=== PATIENT | male | born 1945 | race Caucasian/White ===

== ENCOUNTER → 2021-10-13 14:08 | Outpatient (BNVA) | payer OTHER, SELFPAY | PROVIDERS: Family Provider Nurse Practitioner; PCP Nurse Practitioner; Visit Provider Internal Medicine | DX: I25.10 Atherosclerotic heart disease of native coronary artery without angina pectoris (principal); R94.31 Abnormal electrocardiogram [ECG] [EKG]; I45.10 Unspecified right bundle-branch block; I10 Essential (primary) hypertension; R06.00 Dyspnea, unspecified; R55 Syncope and collapse; R00.0 Tachycardia, unspecified; R00.1 Bradycardia, unspecified; I48.91 Unspecified atrial fibrillation | CPT/HCPCS: 93005; 93270; 99204 ==

== ENCOUNTER → 2021-11-16 11:58 | Outpatient (BNVA) | payer OTHER, SELFPAY | PROVIDERS: Family Provider Nurse Practitioner; PCP Nurse Practitioner; Visit Provider Internal Medicine | DX: I25.10 Atherosclerotic heart disease of native coronary artery without angina pectoris (principal); I10 Essential (primary) hypertension; R06.00 Dyspnea, unspecified; R55 Syncope and collapse | CPT/HCPCS: 99214 ==

== ENCOUNTER 2021-11-24 07:33 | Outpatient (CLI) | payer OTHER, SELFPAY ==
[2021-11-23 14:46] LABS: Basophils % 0.2 %; Eosinophils # 0.1 10^3/uL (0.0-0.8); Eosinophils % 0.8 %; Hematocrit 53.3 % (42.0-52.0); Hemoglobin 17.8 g/dL (11.7-16.6); Lymphocytes # 4.2 10^3/uL (0.8-4.8); Lymphocytes % 49.2 %; Mean Corpuscular HGB Conc 33.4 g/dL (30.0-36.0); Mean Corpuscular Hemoglobin 34.8 pg (28.0-34.0); Mean Corpuscular Volume 104.1 fl (80-94); Mean Platelet Volume 9.9 fL (7.4-10.4); Monocytes # 0.6 10^3/uL (0.2-0.9); Monocytes % 6.4 %; Neutrophils # 3.67 10^3/uL (1.8-7.7); Nucleated Red Blood Cells % 0 %; Platelet Count 218 10^3/cmm (130-400); Red Blood Count 5.12 10^6/uL (4.1-5.3); Red Cell Distribution Width 13.7 % (12.1-15.1); White Blood Count 8.5 10^3/uL (4.0-10.0)
[2021-11-23 14:59] LABS: INR 0.83 (0.83-1.21); Prothrombin Time (Patient) 11.7 Seconds (12.0-15.1)
[2021-11-23 18:37] LABS: Blood Urea Nitrogen 9 mg/dL (8-23); Calcium 9.1 mg/dL (8.5-10.5); Carbon Dioxide 28 mmol/L (22-29); Chloride 102 mmol/L (98-107); Glucose 96 mg/dL (65-115); Osmolality Calculated 287 mOsm/kg (285-295); Sodium 139 mmol/L (136-145)
[2021-11-23 18:41] LABS: Anion Gap 13.4 (5-19); Potassium 4.4 mmol/L (3.5-5.1)
[2021-11-24] VITALS (28 sets, daily range): BP systolic 117–152; BP diastolic 67–88; PULSE 39–51; RESP 8–26; TEMP 36.4–36.6; O2SAT 91–98; BMI 19.6
--- NOTE | 2021-11-24 07:30 | XACV_ITS ---
Exam Room: 2 Ht: 183 cm Wt: 66 kg BSA: 1.82 m2 Gender: Male : 1945 Any Known Allergies: Sulfa Exam Priority: Routine Procedure(s): Procedure Description: Diagnostic procedure Procedure Description: Left Heart Catheterization Procedure Description: Left ventriculography Procedure Description: Coronary Angiography Diagnostic Cath Status: Elective Diagnostic Findings * Left Main has no significant disease. * Proximal Left Anterior Descending: critical 95% stenosis, JOSÉ: 3 flow. LAD gives rise to a large sized diagonal artery which is free of significant disease. Distal LAD fills via collaterals.. * Indication:76-year-old man with past medical history of coronary artery disease status post 3 stents in 2004 and hypertension was referred for a syncopal episode without any warning signs. Also has been having worsening dyspnea on exertion and chest pressure. Patient had event monitor that showed a significant sinus pause of 4.2-second in duration however patient did not want to have pacemaker at that time.. * Circumflex has no disease. * Mid Left Anterior Descending: total occlusion, JOSÉ: 0 flow. * Proximal Right Coronary Artery: obstructive 70% stenosis, JOSÉ: 3 flow. * Distal Right Coronary Artery: obstructive 60% stenosis, JOSÉ: 3 flow. * Right Posterior AV: obstructive 70% stenosis, JOSÉ: 3 flow. * Coronary angiography shows right dominance. Conclusions 1. Severe multivessel CAD including ostial LAD, totally occluded mid LAD, 2. severe RCA stenosis.. 3. Normal left ventricular systolic function. Ejection fraction of 55%. Recommendations * We will refer patient to CT surgery for CABG evaluation. If he is not good surgical candidate, we can consider PCI of RCA and ostial LAD. * Continue aspirin. No Plavix. * Outpatient cardiology follow-up in 2 weeks. Interventional RX Recommendation: CABG Diagnostic RX Recommendation: CABG Anticoagulation: Heparin Ventriculography Ejection Fraction: 55.0 % Pressures Phase:Rest AO : 93 / 59 ( 75 ) @ 11:19:00 AM 119 / 60 ( 81 ) @ 11:27:00 AM 120 / 60 ( 81 ) @ 11:27:00 AM LV : 132 / -1 / 18 @ 11:26:00 AM 122 / 4 / 25 @ 11:27:00 AM 121 / 3 / 23 @ 11:27:00 AM Valves Phase:DefaultPhase AV : 1.0 @ 10:36:25 AM AV Mean Gradient: 0.0 @ 10:36:25 AM 0.0 @ 10:36:25 AM Clinical Evaluation EBL: 5mL-10mL Procedural Details Procedure Consent Obtained. Pre-Procedure Time Out. Identified patient by full name and date of as verbalized by the patient/guarantor. Does the consent match the physician's order: Yes. Accurate & Complete Informed Consent: Yes. Inpatient/Outpatient History & Physical on Chart: Yes. If H&P is completed, is and addenduem needed: No; If yes, is the addendum complete: N/A. Visualize and Verify Site with Patient/Guarantor: N/A. Relevant Radiology Images available: Yes. Pre-op teaching completed and patient verbalized understanding. The risks, benefits, and alternatives of sedation and/or procedure were discussed by physician. The patient agrees to continue. Procedure started. [facility] Clinical Fraility Score: 3: Managing Well. 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 Chest Pain Symptom Assessment: Atypical Angina. Correct patient, site and procedure confirmed by cath team. Current diagnosis: Chest Pain. PERRLA. Strong, equal hand head batcher bilaterally. Lungs clear x 5 lobes. IV Site on Arrival: 20 gauge in the left anticubital. IV Fluids: 0.9% NaCl at KVO. 0 mL infused prior to manager cath lab. Pre Procedural Pulses: bilateral dorsalis pedis was 2+. Pre Procedural Pulses: bilateral posterior tibial was 1+. Pre Procedural Pulses: bilateral radial was 3+. Oxygen started at 2liters/min via nasal canula. right groin was prepped with chloroprep then draped in the usual sterile fashion. right radial was prepped with chloroprep then draped in the usual sterile fashion. Physician notified. Baseline sample Acquired. HR: 44 BPM. Physician arrived. Physician scrubbed in. Immediate Pre-Procedure Time Out. Correct Patient: Yes; Correct Procedure: Yes; Correct Site: Yes; Correct Patient Position: Yes; Correct Supplies: Yes; Dried Flammable Prep: Yes; Blood Products Available: N/A;. Lidocaine 1% infiltrated to the right radial. Arterial access obtained. A 5 setswana TIG catheter in over wire. Multiple views taken of left coronary artery. Catheter redirected to the RCA. Multiple views taken of right coronary artery. Catheter removed over the standard wire. A 5 setswana Angled Pig catheter in over wire. EDP Sample taken: LV 132/-2,18; HR: 41 BPM; SpO2: 96%. LV gram performed in [place] @ 10 mL/second for a total of 30 mL. EDP Sample taken: LV 122/4,25; HR: 46 BPM; SpO2: 96%. Pullback taken: LV 121/3,23; AO 119/60(81); Mean: 0mmHg, Peak to Peak: 1mmHg, SEP: 14sec/min; HR: 47 BPM; SpO2: 96%. A TR Band was successful obtaining hemostatsis at the Right Radial artery insertion site. Post Procedure: Pulses reassessed and unchanged. PERRLA. Strong, equal hand head batcher bilaterally. No VTE prophylaxis required. Medication's Wasted: Lidocaine 1% = 2 mL. Medication's Wasted: Heparin = 1000 units. Medication's Wasted: Nitro = 49.8 mg. Total IV fluids: 24 mL. Post-op diagnosis: Multi-vessel CAD. Complications: None. Estimated blood loss: 5mL-10mL. Responsiveness - Normal response to verbal stimuli; alert and oriented, PERRLA. Airway - Unaffected, no intervention required; spontaneous ventilation. Circulation: W/N/L, pulses unchanged. Nausea/Vomiting: No. Vital chart was stopped. Procedure completed. Patient transferred by wheelchair to [facility]. Catheter removed over the standard wire. Access Site Site: Right Radial artery Sheath Size: 6 Fr Hemostasis Method: TR Band Hemostasis Success: Successful Procedure Medications Start: 9:58 AM Stop: 9:58 AM Medication: Fentanyl Amount: 50 mcg Route: I.V. Start: 10:08 AM Stop: 10:08 AM Medication: Versed Amount: 1 mg Route: I.V. Start: 10:15 AM Stop: 10:15 AM Medication: Nitrogylcerin Amount: 200 mcg Route: I.A. Start: 10:17 AM Stop: 10:17 AM Medication: Heparin Amount: 5000 units Route: I.V. I, the attending physician, have reviewed and verified all procedure medications. Yes, all medications given per verbal order History/Risk Factors Hypertension: Yes Dyslipidemia: No Peripheral Arterial Disease (PAD): No Myocardial Infarction (DC): Yes Obesity: No Renal Disease: No Tobacco Use: Current/Recent(w/in 1 year) Prior Interventions PCI: Yes CABG: No Valve Surgery: No Report Signatures Finalized by Adam Francis MD on 12/01/2021 11:51 AM
[2021-11-24] MEDS: diphenhydrAMINE 50 mg Capsule PO (08:50)
--- NOTE | 2021-11-24 10:08 | W.PM.OPSUD ---
Surgery/Procedure H&P Update DATE OF PROCEDURE: November 24, 2021 DATE H&P PERFORMED: 11/16/21 H&P UPDATE INFORMATION: I have reviewed H&P completed within last 30 days, I have examined patient prior to procedure and No changes to prior documentation PREOP DIAGNOSIS: Dyspnea on exertion/syncope PRIMARY INDICATION FOR PROCEDURE: Dyspnea on exertion/syncope PLANNED PROCEDURE: Operation Date: 11/24/21 08:30 Proposed Procedures p left Cardiac Catheterization 30360,R55,R06.00,I25.10,I10(Left) - Adam Francis M.D Possible percutaneous coronary intervention PATIENT REASSESSED PRIOR TO SEDATION, WITH NO CHANGE NOTED: Yes PHYSICAL EXAM: alert, oriented x 3, clear to auscultation bilaterally and regular rate & rhythm AIRWAY EVAL/ANESTHESIA PLAN: ASA III, Local Anesthesia, Risks, benefits & alternatives of sedation and/or procedure discussed and Patient agrees to continue as planned
--- NOTE | 2021-11-24 11:23 | PC.NURSE ---
Around 1040: Patient returned from collaborative physician. TR band in place, no hematoma or drainage noted. Vitals WDL, pt denies pain. Patient educated over right wrist restrictions, verbalized understanding of all teaching. Will continue to monitor per protocol.
--- NOTE | 2021-11-24 16:51 | PC.NURSE ---
1600 TR band removed per protocol no hematoma or bruising noted patient tolerated well
--- NOTE | 2021-11-24 18:23 | PC.NURSE ---
Discharge Note Patient discharged to Home via private vehicle accompanied by spouse. Discharge instructions reviewed with patient and/or corporate representative. Mobile pharmacy medications and/or prescriptions provided. Belongings/home medications returned.
== END 2021-11-24 18:23 | disposition home or self-care (01) ==
LOC: CCL 07:37 → MEDSURG 16:40
PROVIDERS: PCP Nurse Practitioner; Visit Provider Internal Medicine
DX: R06.00 Dyspnea, unspecified (principal); R55 Syncope and collapse; I10 Essential (primary) hypertension; I25.10 Atherosclerotic heart disease of native coronary artery without angina pectoris; F17.200 Nicotine dependence, unspecified, uncomplicated
CPT/HCPCS: 36415; 80048; 85025; 85610; 93452; 93458; 96360; 99152; 99153; C1769; C1887; C1894; G0378; J1644; J2250; J3010; J3490; J7030; Q0163; Q9967

== ENCOUNTER → 2021-11-29 13:46 | Outpatient (BNVA) | payer OTHER, SELFPAY | PROVIDERS: PCP Nurse Practitioner; Visit Provider Thoracic Surgery (Cardiothoracic Vascular Surgery) | DX: I25.10 Atherosclerotic heart disease of native coronary artery without angina pectoris (principal); I10 Essential (primary) hypertension; F17.210 Nicotine dependence, cigarettes, uncomplicated | CPT/HCPCS: 99203 ==

== ENCOUNTER 2021-12-05 09:02 | Outpatient (CLI) | payer OTHER, SELFPAY ==
--- NOTE | 2021-12-05 09:30 | USCV_ITS ---
Bernardo Gutierrez Age: 76 Gender: M : 1945 Exam Date: 12/05/2021 09:41 Ordering Phys: Jasiel Escalante MD (Andy) ([email or web address] [email or web address] Technologist: Matt Mohan Exam Location: [facility] – [place] Indication: pre cabg RIGHT LEFT LOWER EXTREMITY Diameter Diameter (cm) (cm) 0.30 High Thigh 0.33 0.40 Mid Thigh 0.35 0.27 Above Knee 0.28 0.27 Below Knee 0.23 0.27 Mid Calf 0.22 0.16 Ankle 0.24 RIGHT LEFT UPPER EXTREMITY The Upper Extremity section is not evaluated at this time Findings both saph veins would make great canadates of harvest for cabg Patent and easily compressible greater saphenous veins bilaterally Normal venous dimensions bilaterally-details as mentioned above Conclusions Patent normal caliber greater saphenous veins bilaterally with no evidence of thrombosis Dr Jocelin Maciel MD FACC (Electronically Signed) Final Date: 05 December 2021 19:47 S
== END 2021-12-05 09:03 | disposition home or self-care (01) ==
PROVIDERS: PCP Nurse Practitioner; Visit Provider Thoracic Surgery (Cardiothoracic Vascular Surgery)
DX: I25.10 Atherosclerotic heart disease of native coronary artery without angina pectoris (principal); Z01.810 Encounter for preprocedural cardiovascular examination
CPT/HCPCS: 93970

== ENCOUNTER 2021-12-06 15:23 | Inpatient (IN) | payer OTHER, SELFPAY ==
--- NOTE | 2021-12-05 10:46 | XRR_ITS ---
PROCEDURE INFORMATION: Exam: XR Chest Exam date and time: 12/05/2021 10:57 AM Age: 76 years old Clinical indication: Pre-operative exam; Cardiovascular screening and respiratory screening exam; Additional info: Preop for cabg TECHNIQUE: Imaging protocol: Radiologic exam of the chest. Views: 1 view. COMPARISON: CR Chest 1 [place] [id number] 03/23/2018 12:00 PM FINDINGS: Lungs: There are normal lung volumes without interstitial or airspace opacities. Pleural spaces: There are no pleural effusions or pneumothorax. Heart/Mediastinum: The heart size is normal. There is a mildly tortuous thoracic aorta. The trachea is in the midline. Bones/joints: No acute abnormalities. There is osteopenia. Severe left and mild right shoulder degenerative changes are seen. XR/XR chest 1V portable [id number] IMPRESSION: No chest radiographic evidence of acute cardiopulmonary disease.
[2021-12-05 11:48] LABS: Basophils % 0.4 %; Eosinophils # 0.1 10^3/uL (0.0-0.8); Eosinophils % 0.7 %; Hematocrit 55.4 % (42.0-52.0); Hemoglobin 18.6 g/dL (11.7-16.6); Lymphocytes # 3.2 10^3/uL (0.8-4.8); Lymphocytes % 28.6 %; Mean Corpuscular HGB Conc 33.6 g/dL (30.0-36.0); Mean Corpuscular Hemoglobin 35.1 pg (28.0-34.0); Mean Corpuscular Volume 104.5 fl (80-94); Mean Platelet Volume 10.1 fL (7.4-10.4); Monocytes # 0.9 10^3/uL (0.2-0.9); Monocytes % 8.1 %; Neutrophils # 7.01 10^3/uL (1.8-7.7); Neutrophils % 61.9 %; Nucleated Red Blood Cells % 0 %; Platelet Count 255 10^3/cmm (130-400); Red Cell Distribution Width 13.4 % (12.1-15.1); White Blood Count 11.3 10^3/uL (4.0-10.0)
[2021-12-05 12:06] LABS: Add Urine Microscopic? NO; Charge for UA Resulting for Rev
[2021-12-05 12:08] LABS: INR 0.92 (0.8-1.2)
[2021-12-05 12:09] LABS: Partial Thromboplastin Time 29.6 SECONDS (23.9-36.7)
[2021-12-05 12:12] VITALS: BMI 19.6
[2021-12-05 12:26] LABS: Urine Appearance Clear (CLEAR); Urine Color Dark Yellow (Yellow); pH Urine 5 (5-7)
[2021-12-05 12:26] LABS: Alanine Aminotransferase 18 U/L (0-41); Albumin Level 4.7 g/dL (3.5-5.2); Alkaline Phosphatase 136 U/L (40-130); Anion Gap 14.5 (5-19); Aspartate Amino Transferase 18 U/L (0-40); Blood Urea Nitrogen 9 mg/dL (8-23); Calcium 9.9 mg/dL (8.5-10.5); Carbon Dioxide 29 mmol/L (22-29); Chloride 99 mmol/L (98-107); Globulin 3.1 g/dL (1.3-4.6); Glucose 106 mg/dL (65-115); Osmolality Calculated 285 mOsm/kg (285-295); Potassium 4.5 mmol/L (3.5-5.1); Sodium 138 mmol/L (136-145); Thyroid Stimulating Hormone 1.57 uIU/mL (0.27-4.20); Total Bilirubin 0.4 mg/dL (0.15-1.2); Total Protein 7.8 g/dL (6.6-8.7)
[2021-12-05 12:27] LABS: Bilirubin Urine Neg (Negative); Blood Urine Neg (Negative); Glucose Urine UA Norm (Normal); Ketones Urine Negative (Negative); Leukocyte Esterase Urine Negative (Negative); Nitrate Urine Negative (Negative); Protein Urine Neg (Negative); Urobilinogen Urine Norm (Negative)
[2021-12-05 13:19] LABS: Free T4 Free Thyroxine 0.81 ng/dL (0.82-1.77)
[2021-12-06] VITALS (43 sets, daily range): BP systolic 94–155; BP diastolic 45–86; PULSE 59–99; RESP 12–32; TEMP 36.7–37.5; O2SAT 96–100
[2021-12-06 06:18] LABS: Glucose Point of Care 100 mg/dL (70-110)
--- NOTE | 2021-12-06 06:33 | W.PM.OPSUD ---
Surgery/Procedure H&P Update DATE OF PROCEDURE: December 06, 2021 DATE H&P PERFORMED: 11/29/21 H&P UPDATE INFORMATION: I have reviewed H&P completed within last 30 days, I have examined patient prior to procedure and No changes to prior documentation PREOP DIAGNOSIS: Severe CAD: occluded LAD; RCA disease PLANNED PROCEDURE: Operation Date: 12/06/21 08:15 Proposed Procedures p CABG 58740,CAD I25.00(Not Applicable) - Jasiel Escalante MD
[2021-12-06] MEDS: sodium chloride 0.9% 1,000 ML 30 ML IV (06:59)
--- NOTE | 2021-12-06 07:25 | ANES.PREANE2 ---
Pre-Anesthetic Assessment Height/Weight: Height 1.83 m Weight 65.771 kg Temp Pulse Resp BP Pulse Ox O2 Del Method 99 F 59 L 18 155/79 98 12/06/21 06:13 12/06/21 06:13 12/06/21 06:13 12/06/21 06:13 12/06/21 06:13 12/06/21 06:14 Preop Diagnosis: Severe CAD: occluded LAD; RCA disease Operation Date: 12/06/21 08:15 Proposed Procedures p CABG 57446,CAD I25.00(Not Applicable) - Jasiel Escalante MD Familial anesthetic complications: None Was Beta Nadege taken within 24 hours: N/A Was Clonidine taken within 24 hours: N/A Last intake: Intake Last Liquid Date 12/05/21 Last Liquid Time 23:30 Last Solid Date 12/05/21 Last Solid Time 21:00 Social Tobacco and No alcohol Exam alert, oriented x 3 and regular rate & rhythm Airway Submandibular: within normal limits Cervical ROM: within normal limits Mallampati: Class II Dentition: false Pulmonary Chronic Obstructive Pulmonary Disease CV/HEM Coronary Artery Disease and Hypertension GI Gastroesophageal Reflux Disease Anesthetic Plan ASA status: 4 Anesthesia: General Other: A.line, CVL/PAC, MANOHAR Medications/Allergies Home Medications Medication Instructions Recorded Confirmed Last Taken Type cholecalciferol (vitamin D3) 25 25 mcg PO DAILY 10/13/21 12/05/21 12/04/21 History mcg (1,000 unit) capsule food supplemt, lactose-reduced ea PO 10/13/21 11/29/21 12/04/21 History (Ensure Active High Protein) omega 9-ntu-weg-fish oil 100 cap PO 10/13/21 11/29/21 12/02/21 History mg-160 mg-1,000 mg capsule (Fish Oil) omeprazole 40 mg capsule,delayed 40 mg PO DAILY 10/13/21 12/05/21 12/05/21 History release sildenafil 100 mg tablet 100 mg PO DAILY PRN Sexual Activity 10/13/21 12/05/21 Unknown History tamsulosin 0.4 mg capsule 0.4 mg PO DAILY 10/13/21 12/05/21 12/04/21 History amlodipine 10 mg tablet 10 mg PO DAILY #90 tabs 11/16/21 12/05/21 12/05/21 Rx aspirin 81 mg capsule 81 mg PO DAILY #60 caps 11/24/21 12/05/21 12/02/21 Rx citalopram 40 mg tablet 40 mg PO DAILY 11/29/21 12/05/21 12/04/21 History Allergies Allergy/AdvReac Type Severity Reaction Status Date / Time Sulfa (Sulfonamide Allergy rash Verified 11/29/21 14:34 Antibiotics) Current Medications Generic Name Dose Route Start Last Admin Trade Name Freq PRN Reason Stop Dose Admin Sodium Chloride 1,000 mls @ 30 mls/hr 12/06/21 06:00 12/06/21 06:59 Sodium Chloride 0.9% IV 12/07/21 05:59 30 mls/hr .Q24H MARY Administration PFSH Anesthesia Medical History CAD (coronary artery disease) Hypertension Family History Mother CAD (coronary artery disease) Father Hypertension Denies family history of Diabetes Cancer Stroke Social History Smoking and tobacco status: current every day smoker cigarettes Packs smoked per day: 1 Years cigarettes smoked: 4 Alcohol intake: current Alcohol intake frequency: 3 or more drinks per day Household members: spouse Housing: House Marital status: Number of children: 2 service: Yes Pets and animals: Yes Pets & animals: cat(s) and dog(s) Data Anesthesia : 12/05/21 11:10 12/05/21 11:10 Short CBC 12/05/21 Range/Units 11:10 WBC 11.3 H (4.0-10.0) 10^3/uL Hgb 18.6 H (11.7-16.6) g/dL Hct 55.4 H (42.0-52.0) % MCV 104.5 H (80-94) fl Plt Count 255 (130-400) 10^3/cmm Neut % (Auto) 61.9 % Neut # (Auto) 7.01 (1.8-7.7) 10^3/uL BMP 12/05/21 11:10 Sodium 138 Potassium 4.5 Chloride 99 Carbon Dioxide 29 BUN 9 Creatinine 0.7 Glucose 106 Calcium 9.9 Liver Function 12/05/21 Range/Units 11:10 Total Bilirubin 0.4 (0.15-1.2) mg/dL Direct Bilirubin 0.20 (0.00-0.30) mg/dL AST 18 (0-40) U/L ALT 18 (0-41) U/L Alkaline Phosphatase 136 H (40-130) U/L Albumin 4.7 (3.5-5.2) g/dL Urine 12/05/21 Range/Units 11:25 Urine Color Dark yellow (Yellow) Urine Appearance Clear (CLEAR) Urine pH 5 (5-7) Ur Specific [place] 1.020 (1.005-1.030) Urine Protein Neg (Negative) Urine Glucose (UA) Norm (Normal) Urine Ketones Negative (Negative) Urine Nitrate Negative (Negative) Urine Bilirubin Neg (Negative) Ur Leukocyte Esterase Negative (Negative) Blood Bank 12/05/21 11:10 Blood Type O Positive Rho(D) Type Positive Antibody Screen Negative Coags 12/05/21 11:10 PT 12.60 INR 0.92 APTT 29.6 Cardiac Studies: Cardiac Event Monitor 10/13/21
--- NOTE | 2021-12-06 08:34 | XRR_ITS ---
PROCEDURE INFORMATION: Exam: XR Chest Exam date and time: 12/06/2021 2:39 PM Age: 76 years old Clinical indication: Device placement; Other: Open heart surgery; Prior surgery; Surgery date: Post-operative (0-2 days); Additional info: Status post open heart surgery, in or 1. Willcallwhen ready TECHNIQUE: Imaging protocol: Radiologic exam of the chest. Views: 1 view. COMPARISON: CR XR chest 1V portable [id number] 12/05/2021 10:57 AM FINDINGS: Tubes, catheters and devices: Interval placement of right IJ Bynum-Hayes catheter with the tip near midline/main pulmonary artery region. Another right IJ catheter is probably present, partially visualized in the lower aspect, with the tip in the lower SVC. Interval placement of ET tube with tip about 5.9 cm above mandy. Placement of left chest tube with the tip in the upper thorax. Another radiopaque tube is faintly visualized in the midline lower thorax, probably mediastinal tube. Lungs: Cardiac silhouette size, and vascularity are somewhat accentuated, likely related to poor inspiration/expansion however clinical correlation for mild CHF should be obtained. Upper lungs are clear. Lung bases are suboptimally assessed. Pleural spaces: Stable minimal biapical pleural thickening. No pleural effusion. No pneumothorax. Heart/Mediastinum: As above. Bones/joints: Sternotomy wires and CABG clips. No acute osseous findings. Other findings: Single view was submitted. XR/XR chest 1V portable [id number] IMPRESSION: 1. Accentuated cardiac silhouette size and vascularity. See discussion above. 2. No obvious acute consolidation. Suboptimal lung base assessment. Followup including lateral view may be obtained if clinically indicated. 3. Tube/line positions as above.
[2021-12-06] MEDS: cefUROXime 1,500 MG in sodium chloride 0.9% (plus) 50 ML 100 MG IV ×2 (08:40→12:45)
[2021-12-06] MEDS: vancomycin 1,000 MG SDV 3000 MG XX (09:10)
--- NOTE | 2021-12-06 10:31 | SUR.OPER ---
VEIN SOLUTION: 1000ML LACTATED RINGERS MEDICATION ADDED: HEPARIN 1000U/ML 1750 UNITS SODIUM BICARBONATE 1MEQ/ML 0.7MEQ VERAPAMIL 2.5MG/ML 17.5MG NITROGLYCERIN 5MG/ML 10MG
--- NOTE | 2021-12-06 15:14 | PC.NURSE ---
pt here from OR with OR team. to the left wrist, cordis and central line to the right IJ. pt is currently intubed with a size 8 tube. verduzco to gravity. mediastinal and pleural chest tubes noted. wound vac to sternum.
--- NOTE | 2021-12-06 15:28 | ECG_ITS ---
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 Measurements Intervals Egan Rate: 84 P: 71 LA: 142 QRS: 72 QRSD: 118 T: 30 QT: 368 QTc: 437 Interpretive Statements SINUS RHYTHM RIGHT BUNDLE BRANCH BLOCK [120+ ms QRS DURATION, UPRIGHT V1, 40+ ms S IN I/aVL/V4/V5/V6] Compared to ECG 03/24/2018 05:13:57 Right bundle-branch block now present ST (T wave) deviation no longer present Electronically Signed On 12-06-2021 17:51:23 CDT by Adam Francis M.D. [id number]
--- NOTE | 2021-12-06 15:30 | PC.NURSE ---
cathy jiménez notified staff of a possible right upper pneumothorax. Dr. Whelan contacted and orders given to repeat portable chest xray
[2021-12-06] MEDS: fentaNYL 50 mcg/mL INJ 2mL IVP ×3 (15:50→23:31)
--- NOTE | 2021-12-06 16:02 | PM.OP ---
Operative Report Date of procedure: December 06, 2021 Pre-op diagnosis: Preop Diagnosis Severe CAD: occluded LAD; RCA disease Post-op diagnosis: same Procedure done: 1. Coronary artery bypass grafting x2 (1 artery and 1 vein) utilizing in situ left internal mammary artery to left anterior descending artery reverse saphenous vein graft from aorta to the distal right coronary artery. 2. Endoscopic vein harvesting of the right greater saphenous vein. Pathology: none sent Surgeon: Jasiel Escalante Anesthesia: General Estimated blood loss: 1000 cc of cell salvage blood was processed and retransfuse. No banked blood was transfused. Complications: None Condition: stable Disposition: ICU Brief History: Mr. Gutierrez is a pleasant 76-year-old gentleman referred to our service with severe two-vessel coronary artery disease including total occlusion of the LAD proximally with right to left collateralization from a large RCA with multiple lesions. It is felt that in relation to his occluded LAD, he would be best served with consideration for surgical revascularization. He underwent careful outpatient preoperative review. He was separately scheduled for elective admission for planned attempt at CABG. Details of risk the procedure were frankly discussed. Appropriate consents have been reviewed and signed. Mr. Gutierrez was eager to proceed. Procedure: Details and risks of the surgery were carefully and frankly explained to Mr. Gutierrez and his . Particular risks of this surgery carefully reviewed with them included the possibility of , stroke, heart attack, major bleeding, infection, pneumonia, pain, organ failure, failure to benefit, early closure of the bypass grafts, prolonged hospital stay and subsequent need for further procedures. Increased risks for complications secondary to total LAD occlusion were carefully reviewed. Patient and family understand these increased risks. All questions were answered and appropriate consents were reviewed and signed. Preoperative education for the patient and the family included both written and video materials. The patient and the family wished to proceed with plans for attempted surgical revascularization for severe coronary artery bypass. PROCEDURE: Preoperative evaluation was obtained from our Anesthesia colleagues and adequate IVs were confirmed. The patient was then taken to the Operating Room Suite where general anesthesia was induced. Appropriate invasive monitoring lines were placed, including large bore peripheral IVs, central line, [place]-Hayes catheter, Mcnamara catheter and associated monitoring leads. After careful positioning on the Operating Room table, the patient was subsequently sterilely prepped and draped. The patient then received low-dose Heparin prior to vein harvest. Greater saphenous vein was harvested by endoscopic technique from the right lower extremity. Branches were secured with ligature and clips and the vein was extracted from the tunnel without tension. It was then flushed with a Heparin and albumin solution and prepared for grafting. Vein harvest sites were irrigated, platelet poor plasma infused into the tunnel and port sites closed with 3-0 and 4-0 Vicryl Plus suture. Simultaneously with vein harvesting, a median sternotomy was created utilizing a #10 scalpel blade with hemostasis controlled with cautery. After reaching the sternal table, the sternum was divided with a reciprocating saw. Bleeding was controlled with cautery and judicious use of bone wax. Following this, the left chest wall was elevated with a Rultract retractor. The left internal mammary artery was dissected free with branches being secured with clips and cautery. The distal end was left intact. After harvesting of the mammary artery, a left pleural chest tube was then placed. The left chest wall was then lowered and moistened antibiotic-soaked laparotomy pads were placed in the wound, followed by an Ankeney retractor. The sternum was then and the pericardium opened and secured with stay sutures. After inspection, 2-0 pledgeted Ethibond sutures were placed at cannulation sites, at which time the patient was fully heparinized. Following this, the left internal mammary artery was taken down from its distal attachment, flushed with Papaverine solution, prepared for grafting and brisk flow confirmed. A soft bulldog was applied distally. Next, the heart was cannulated with a 22-Turkish aortic cannula, two-stage venous cannula and aortic root vent. The patient was subsequently placed on cardiopulmonary bypass and cooled systemically to 34 degrees. Aortic cross-clamp was then carefully placed and 4 degree Celsius cold blood cardioplegia was administered through the aortic root in antegrade fashion. Prompt diastolic arrest was obtained. Left ventricular decompression was confirmed. The heart was cooled systemically with iced saline with an insulation pad in place to protect the phrenic nerve. Throughout the cross-clamp period, at 20-30 minute intervals, antegrade blood cardioplegia was administered to maintain asystole. We then inspected the cardiac surface and coronary anatomy. Initially we did not find the most distal margins of the RCA along the diaphragmatic surface. This vessel was opened up at 2 mm in size. Vein was anastomosed distally with running 7-0 Prolene suture over a 2 mm shunt. This vein was then anastomosed to a 4 mm aortotomy with running 5-0 Prolene suture. With the rewarming phase of bypass continuing, the left internal mammary artery was brought through a left anterior pericardial window into the field. The LAD was opened up in its mid one-third and was approximately 2 mm in size. The SOOD was then anastomosed to the LAD with a running 7-0 Prolene suture. It should be noted that all distal coronary anastomoses were performed over the appropriate size coronary shunt which was removed prior to securing the distal suture line. Following this, aortic cross-clamp was released and de-airing maneuvers were performed through the aortic root vent, as well as being confirmed by transesophageal echocardiography. Dobutamine at 3 mcg per kilogram per minute was administered with good chronotropic and inotropic affect. The heart returned to spontaneous sinus rhythm and did not require cardioversion or pacing. After adequate recovery from the cross-clamp period and confirmation of cardiac stability, the patient was weaned from bypass without difficulty. Venous cannula was removed. Heparin was reversed with Protamine and confirmed by measurement of activated clotting time. The heart was then decannulated and cannulation sites were oversewn as required. Pacing wires were placed and brought through the skin and secured. Radiopaque markers were placed on the vein grafts at the level of aorta. Two mediastinal drains were placed and connected to Pleur-evac suction. The wound was carefully irrigated and hemostasis was confirmed. Ankeney retractor was removed and sponge and needle count was correct. The sternum was then reapproximated very carefully with interrupted #7 stainless steel wire with Surgicel strips used beneath the sternal table. Fascia was closed with #1 Vicryl suture with the next layers being closed with 2-0 and 3-0 suture. The skin was reapproximated carefully in a subcuticular manner. Sterile dressings were applied, followed by a vacuum-assisted dressing. The patient was carefully removed from the operating room table and transferred to the Intensive Care Unit. His was then counseled as to the details of the procedure.
[2021-12-06] MEDS: midazolam 1 mg/mL INJ 2 mL IVP (16:05)
--- NOTE | 2021-12-06 16:14 | PC.NURSE ---
discharged from PACU to same level of care to ICU
[2021-12-06 16:16] LABS: ABG PCO2 37.6 mmHg (35-45); ABG PH Result 7.32 (7.35-7.45); Alveolar-Arterial Oxygen Gradi 36.1 mmHg (5-10); Arterial Blood Gas Hematocrit 45.2 % (42-52); Base Excess ABG -6.3 mmol/L (-2.0-2.0); Blood Gas Operator Identificat CAK; Blood Gas Sample Site ARTLINE; Blood Gas Sample Type Arterial; Carboxyhemoglobin 1.7 %THgb (0.4-20.1); HCO3 ABG 19.2 mmol/L (22-26); HGB O2 Sat 97.6 % (95-100); Ionized Calcium Level - ABG 1.1 mmol/L (1.1-1.4); Oxygen Device VENT; Oxygen Saturation ABG > 100.0; Potassium Level - ABG 4.1 mmol/L (3.5-5.0); Total Hemoglobin 14.7 g/dL (14-18)
[2021-12-06 16:17] LABS: INR 1.12 (0.8-1.2)
[2021-12-06 16:19] LABS: Partial Thromboplastin Time 26.2 SECONDS (23.9-36.7)
--- NOTE | 2021-12-06 16:22 | ANE.PACU2 ---
Inpatient post-anesthesia follow up: Airway intact: Yes Vital signs: Temperature 99 F Pulse Rate 85 Respiratory Rate 14 Blood Pressure 110/61 Pulse Oximetry 99 Oxygen Delivery Me thod Mechanical Ventila tion Oxygen Flow Rate Fraction of Inspir ed Oxygen 50 Hydration adequate: Yes Nausea and vomiting: No Mental status: Altered (Sedated on Prop gtt) Additional Comments: Intubated sedated to ICU, stable on minimal pressors.
[2021-12-06 16:28] LABS: Basophils % 0.2 %; Eosinophils % 0.1 %; Hematocrit 46.3 % (42.0-52.0); Hemoglobin 15.2 g/dL (11.7-16.6); Lymphocytes # 1.7 10^3/uL (0.8-4.8); Lymphocytes % 9.7 %; Mean Corpuscular HGB Conc 32.8 g/dL (30.0-36.0); Mean Corpuscular Hemoglobin 34.9 pg (28.0-34.0); Mean Corpuscular Volume 106.4 fl (80-94); Mean Platelet Volume 9.8 fL (7.4-10.4); Monocytes # 1.7 10^3/uL (0.2-0.9); Monocytes % 9.8 %; Neutrophils # 13.82 10^3/uL (1.8-7.7); Neutrophils % 79.4 %; Nucleated Red Blood Cells % 0 %; Platelet Count 157 10^3/cmm (130-400); Red Blood Count 4.35 10^6/uL (4.1-5.3); Red Cell Distribution Width 13.3 % (12.1-15.1); White Blood Count 17.4 10^3/uL (4.0-10.0)
--- NOTE | 2021-12-06 16:47 | XRR_ITS ---
PROCEDURE INFORMATION: Exam: XR Chest Exam date and time: 12/06/2021 4:57 PM Age: 76 years old Clinical indication: Device placement; Ng tube; Additional info: Ng tube placement TECHNIQUE: Imaging protocol: Radiologic exam of the chest. Views: 1 view. COMPARISON: CR XR chest 1V portable [id number] 12/06/2021 2:39 PM FINDINGS: Tubes, catheters and devices: ET tube with tip about 3.7 cm above mandy. Right IJ [place]-Hayes catheter with stable tip position near the midline and another right IJ catheter with tip in the lower SVC. NG tube coiling in the proximal stomach with the tip projecting in the mid gastric body region. Midline mediastinal tube and left chest tubes remain in place. Lungs: No consolidation. Pleural spaces: Probable small left pleural effusion. The right CP angle are partially excluded. No obvious pneumothorax on the left. There is a linear interface along the superolateral right thorax which may represent small right pneumothorax versus skin fold artifacts. Follow-up exam with expiratory upright exam may be helpful.. Heart/Mediastinum: Interval improvement of cardiac silhouette enlargement and prominent vascularity. Bones/joints: No acute findings. XR/XR chest 1V portable [id number] IMPRESSION: 1. Interval improvement of enlargement cardiac silhouette/prominent vascularity. 2. No obvious consolidation however lung bases are suboptimally assessed. 3. Small left pleural effusion. No obvious left pneumothorax. Small pneumothorax versus skin fold artifact on the right. See discussion above. 4. Tube/line position as above.
[2021-12-06] MEDS: sodium chloride 0.9% 1,000 ML 75 ML IV (16:52)
[2021-12-06 16:55] LABS: Magnesium 2.1 mg/dL (1.7-2.3)
[2021-12-06 17:26] LABS: Blood Urea Nitrogen 7 mg/dL (8-23); Calcium 7.9 mg/dL (8.5-10.5); Carbon Dioxide 21 mmol/L (22-29); Chloride 111 mmol/L (98-107); Glucose 138 mg/dL (65-115); Osmolality Calculated 292 mOsm/kg (285-295); Sodium 141 mmol/L (136-145)
[2021-12-06 17:29] LABS: Anion Gap 14.4 (5-19); Potassium 5.4 mmol/L (3.5-5.1)
--- NOTE | 2021-12-06 17:40 | XRR_ITS ---
PROCEDURE INFORMATION: Exam: XR Chest Exam date and time: 12/06/2021 6:04 PM Age: 76 years old Clinical indication: Other: Check for pneumo; Additional info: Repeat to evaulate for small right pneumo or artifact TECHNIQUE: Imaging protocol: Radiologic exam of the chest. Views: 1 view. COMPARISON: CR (CHEST, ) 12/06/2021 4:57 PM FINDINGS: Tubes, catheters and devices: Tube/line positions are unchanged. No significant interval change otherwise. Lungs: No consolidation however retrocardiac region is difficult to assess. Pleural spaces: No pneumothorax is noted on either side. Heart/Mediastinum: No cardiomegaly. Bones/joints: No acute findings. Other findings: A repeat semi upright view was obtained at about 6:07 p.m. with comparison same day earlier. XR/XR chest 1V portable [id number] IMPRESSION: No pneumothorax on either side.
--- NOTE | 2021-12-06 17:55 | PC.NURSE ---
Lab discrepency Labs were drawn via arterial line by Blane Kelly RN at 1555. ABG drawn from the same arterial line at 1605. Lab results from the BMP were not resulted by 1725 so lab was contacted. The specimen was ran with noted high potassium level of 5.4 with a note of slight hemolysis. The potassium level on the ABG was noted to be 4.1. At 1745 lab was contacted to draw the next scheduled cbc and bmp (that was scheduled for 1830) at 1800 to reevaluate the potassium level.
[2021-12-06 18:06] LABS: Glucose Point of Care 151 mg/dL (70-110)
[2021-12-06 18:06] LABS: Glucose Point of Care 136 mg/dL (70-110)
[2021-12-06] MEDS: propofol 1,000 MG/100 ML INJ 19.73 MG IV ×2 (18:23→22:35)
[2021-12-06] MEDS: chlorhexidine gluconate 0.12% Btl 473 mL 15 ML MUCOUS MEM (18:26)
[2021-12-06] MEDS: aspirin 81 mg Chew Tablet PO (18:26)
[2021-12-06] MEDS: mupirocin oint 22 gm 1 APPLIC NASAL (18:26)
[2021-12-06 18:28] LABS: Basophils % 0.2 %; Hematocrit 45.8 % (42.0-52.0); Hemoglobin 15.3 g/dL (11.7-16.6); Lymphocytes # 1.4 10^3/uL (0.8-4.8); Lymphocytes % 7.9 %; Mean Corpuscular HGB Conc 33.4 g/dL (30.0-36.0); Mean Corpuscular Hemoglobin 35.4 pg (28.0-34.0); Monocytes # 1.4 10^3/uL (0.2-0.9); Neutrophils # 14.67 10^3/uL (1.8-7.7); Neutrophils % 83.1 %; Nucleated Red Blood Cells % 0 %; Platelet Count 144 10^3/cmm (130-400); Red Blood Count 4.32 10^6/uL (4.1-5.3); Red Cell Distribution Width 13.6 % (12.1-15.1); White Blood Count 17.7 10^3/uL (4.0-10.0)
[2021-12-06 18:32] LABS: ABG PCO2 33.9 mmHg (35-45); Alveolar-Arterial Oxygen Gradi 14.4 mmHg (5-10); Arterial Blood Gas Hematocrit 46.9 % (42-52); Base Excess ABG -2.9 mmol/L (-2.0-2.0); Blood Gas Operator Identificat CAK; Blood Gas Sample Site ARTLINE; Blood Gas Sample Type Arterial; Carboxyhemoglobin 1.6 %THgb (0.4-20.1); HCO3 ABG 21.1 mmol/L (22-26); Ionized Calcium Level - ABG 1.1 mmol/L (1.1-1.4); Oxygen Device VENT; Oxygen Saturation ABG 99.6; Potassium Level - ABG 4.1 mmol/L (3.5-5.0); Total Hemoglobin 15.3 g/dL (14-18)
--- NOTE | 2021-12-06 18:55 | PC.NURSE ---
Bedside report completed with Mignon Martinez Rn and Kiley Richardson RN.
[2021-12-06 18:59] LABS: Blood Urea Nitrogen 7 mg/dL (8-23); Calcium 8.1 mg/dL (8.5-10.5); Carbon Dioxide 20 mmol/L (22-29); Chloride 111 mmol/L (98-107); Glucose 140 mg/dL (65-115); Magnesium 2.2 mg/dL (1.7-2.3); Osmolality Calculated 292 mOsm/kg (285-295); Sodium 141 mmol/L (136-145)
[2021-12-06] MEDS: albumin 12.5 GM/250 ML VIAL IV (19:08)
[2021-12-06 19:21] LABS: Glucose Point of Care 123 mg/dL (70-110)
[2021-12-06 19:21] LABS: Glucose Point of Care 144 mg/dL (70-110)
--- NOTE | 2021-12-06 19:44 | PC.NURSE ---
Repeat chest x ray results reported to Dr. Escalante by Corin Evans RN.
[2021-12-06 20:15] LABS: Glucose Point of Care 92 mg/dL (70-110)
[2021-12-06 21:06] LABS: Glucose Point of Care 108 mg/dL (70-110)
--- NOTE | 2021-12-06 21:56 | PC.NURSE ---
Propofol was weaned to assess patient's readiness for extubation. Patient became restless and was instructed to put his arms and legs down. Attempts were made to orient patient to his situation, it was explained to him that he had heart surgery and has many tubes and wires that need to remain in place. Patient unable to follow these instructions. Patient did open his eyes to command and nodded his head yes when asked if he was in pain. Pain medicine given per order. Patient's blood pressure became elevated so propofol was increased to allow patient to rest until he is more appropriate for extubation.
[2021-12-06 22:40] LABS: Basophils % 0.1 %; Lymphocytes # 1.6 10^3/uL (0.8-4.8); Lymphocytes % 10.9 %; Mean Corpuscular HGB Conc 33.3 g/dL (30.0-36.0); Mean Corpuscular Hemoglobin 35.3 pg (28.0-34.0); Mean Corpuscular Volume 105.8 fl (80-94); Mean Platelet Volume 10.1 fL (7.4-10.4); Monocytes # 1.2 10^3/uL (0.2-0.9); Monocytes % 8.5 %; Neutrophils # 11.52 10^3/uL (1.8-7.7); Neutrophils % 79.9 %; Nucleated Red Blood Cells % 0 %; Platelet Count 145 10^3/cmm (130-400); Red Blood Count 3.97 10^6/uL (4.1-5.3); Red Cell Distribution Width 13.6 % (12.1-15.1); White Blood Count 14.4 10^3/uL (4.0-10.0)
[2021-12-06 22:51] LABS: Glucose Point of Care 95 mg/dL (70-110)
[2021-12-06 23:02] LABS: Blood Urea Nitrogen 7 mg/dL (8-23); Calcium 7.7 mg/dL (8.5-10.5); Carbon Dioxide 25 mmol/L (22-29); Chloride 107 mmol/L (98-107); Glucose 94 mg/dL (65-115); Osmolality Calculated 288 mOsm/kg (285-295); Sodium 140 mmol/L (136-145)
[2021-12-06 23:04] LABS: Glucose Point of Care 112 mg/dL (70-110)
[2021-12-06 23:18] LABS: Anion Gap 12.2 (5-19)
[2021-12-06 23:19] LABS: Potassium 4.2 mmol/L (3.5-5.1)
--- NOTE | 2021-12-06 23:36 | PC.NURSE ---
Patient's blood pressure becomes elevated with pain. Pain medication given per order.
[2021-12-06] MEDS: cefUROXime 1,500 MG in sodium chloride 0.9% (plus) 50 ML 200 MG IV (23:41)
[2021-12-07] VITALS (31 sets, daily range): BP systolic 108–136; BP diastolic 60–95; PULSE 70–112; RESP 12–32; TEMP 36.6–37.2; O2SAT 91–98
[2021-12-07 00:07] LABS: Glucose Point of Care 86 mg/dL (70-110)
[2021-12-07 01:02] LABS: Glucose Point of Care 98 mg/dL (70-110)
[2021-12-07] MEDS: midazolam 1 mg/mL INJ 2 mL IVP (01:52)
[2021-12-07] MEDS: oxyCODONE-APAP 5-325 mg Tablet PO ×3 (01:53→20:08)
[2021-12-07 02:10] LABS: Glucose Point of Care 89 mg/dL (70-110)
--- NOTE | 2021-12-07 02:14 | PC.NURSE ---
Patient spontaneously woke up, there were no adjustments to his medications at this time. He opened his eyes and began to thrash his arms and legs. He was redirected to relax his extremities but did not follow these instructions. Multiple attempts were made to calm patient without success. When asked if he was hurting, he nodded his head yes. Versed and Percocet were administered per order. Patient's vital signs remained stable. Patient was repositioned and oral care was preformed for comfort.
--- NOTE | 2021-12-07 02:23 | PC.NURSE ---
Patient's physical assessment, as well as, the assessment of his lines and tubes remain unchanged.
[2021-12-07] MEDS: fentaNYL 50 mcg/mL INJ 2mL IVP ×2 (02:29→22:04)
[2021-12-07 03:12] LABS: Glucose Point of Care 94 mg/dL (70-110)
[2021-12-07 03:31] LABS: ABG PH Result 7.38 (7.35-7.45); Alveolar-Arterial Oxygen Gradi 16.1 mmHg (5-10); Arterial Blood Gas Hematocrit 42.7 % (42-52); Base Excess ABG -0.3 mmol/L (-2.0-2.0); Blood Gas Operator Identificat JB; Blood Gas Sample Site Not specified; Blood Gas Sample Type Arterial; Carboxyhemoglobin 1.9 %THgb (0.4-20.1); HCO3 ABG 25.1 mmol/L (22-26); HGB O2 Sat 91.9 % (95-100); Ionized Calcium Level - ABG 1.1 mmol/L (1.1-1.4); Methemoglobin 0.9 % (0.4-1.5); Oxygen Device VENT; Oxygen Saturation ABG 94.5; PO2 ABG 72.5 mmHg (80.0-100.0); Potassium Level - ABG 3.7 mmol/L (3.5-5.0); Total Hemoglobin 13.9 g/dL (14-18)
[2021-12-07] MEDS: propofol 1,000 MG/100 ML INJ 19.73 MG IV ×2 (03:37→08:07)
[2021-12-07 03:38] LABS: Basophils % 0.2 %; Eosinophils % 0.1 %; Hematocrit 41.2 % (42.0-52.0); Hemoglobin 13.5 g/dL (11.7-16.6); Lymphocytes % 15.4 %; Mean Corpuscular HGB Conc 32.8 g/dL (30.0-36.0); Mean Corpuscular Volume 106.7 fl (80-94); Mean Platelet Volume 10.2 fL (7.4-10.4); Monocytes # 1.3 10^3/uL (0.2-0.9); Monocytes % 9.9 %; Neutrophils # 9.76 10^3/uL (1.8-7.7); Neutrophils % 73.9 %; Nucleated Red Blood Cells % 0 %; Platelet Count 149 10^3/cmm (130-400); Red Blood Count 3.86 10^6/uL (4.1-5.3); Red Cell Distribution Width 13.9 % (12.1-15.1); White Blood Count 13.2 10^3/uL (4.0-10.0)
[2021-12-07 03:52] LABS: INR 1.01 (0.8-1.2)
[2021-12-07 03:53] LABS: Partial Thromboplastin Time 29.3 SECONDS (23.9-36.7)
[2021-12-07 03:59] LABS: Blood Urea Nitrogen 7 mg/dL (8-23); Calcium 7.7 mg/dL (8.5-10.5); Carbon Dioxide 25 mmol/L (22-29); Chloride 109 mmol/L (98-107); Glucose 93 mg/dL (65-115); Glucose Fasting 93 mg/dL (74-106); Osmolality Calculated 290 mOsm/kg (285-295); Sodium 141 mmol/L (136-145)
[2021-12-07 04:02] LABS: Anion Gap 10.9 (5-19); Potassium 3.9 mmol/L (3.5-5.1)
[2021-12-07 04:02] LABS: Glucose Point of Care 82 mg/dL (70-110)
--- NOTE | 2021-12-07 04:21 | PC.NURSE ---
Spoke to Dr. Escalante. Reported 22 beat run of wide complex tachycardia, lab results, hemodynamics, and efforts to extubate patient. Orders for potassium replacement, to remove swan if patient has any further arrhythmias, and to use morphine for pain control if needed.
[2021-12-07] MEDS: potassium chloride premix 100 ML 25 MEQ IV ×2 (04:39→16:54)
[2021-12-07] MEDS: sodium chloride 0.9% 1,000 ML 75 ML IV ×3 (04:39→20:01)
--- NOTE | 2021-12-07 05:20 | PC.NURSE ---
Dr. Escalante at bedside. Reviewed I&O, hemodynamics, medications, and plan of care. Will use morphine and benzo if needed to aid in extubation process. Orders to MARK jones.
[2021-12-07 05:24] LABS: Glucose Point of Care 84 mg/dL (70-110)
--- NOTE | 2021-12-07 05:24 | PM.PN ---
Subjective Subjective: Postop day #1 status post CABG x2. Uneventful night with 1 episode of about a 20 beat run of V. tach around 3:30 AM. Laboratory data only significant for potassium of 3.9. 40 mill equivalents currently infusing. Otherwise, vital signs have been very stable. Low chest tube output. Total chest tube output approximate 350 cc since surgery. Chest x-ray is still pending this morning. Intake and output is approximately 3 and 50 cc positive. Urine output has remained very steady throughout the night. 2 ventilator weaning trials attempted overnight with some agitation. FiO2 currently at 35%. Vitals/I&O/Wt Last Vital Signs Temp 99 F 12/06/21 06:13 Pulse 74 12/07/21 05:00 Resp 12 12/07/21 05:00 BP 125/71 12/07/21 05:00 Pulse Ox 97 12/07/21 05:00 O2 Del Method 12/07/21 04:30 O2 Flow Rate 15 12/06/21 15:14 FiO2 35 12/07/21 04:30 12/06/21 12/06/21 12/07/21 14:59 22:59 06:59 Intake Total 140 / 140 3429.484 / 3569.484 1033.058 / 4602.542 Output Total 3308 / 3308 944 / 4252 Balance 140 / 140 121.484 / 261.484 89.058 / 350.542 Weight last 48 hrs Weight 145 lb Physical Exam Chest: OTHER: Chest wall is stable. Support lines are in position. Resp: COMMON NORMALS: normal respiratory effort, No use of accessory muscles and clear to auscultation bilaterally AUSCULTATION: clear to auscultation bilaterally Cardio: COMMON NORMALS: regular rate, regular rhythm, S1 normal heart sound present and No murmurs present (Cardio) RATE: regular rate RHYTHM: regular rhythm HEART SOUNDS: S1 normal heart sound present GI: COMMON NORMALS: Soft to palpation PALPATION: Yes Soft to palpation OTHER: Hypoactive bowel sounds Urinary Catheter Management: Mcnamara: Cath Placed During This Visit: yes Reason for Continuing Indwelling Catheter: Accurate Measurement of Urinary Output in Critically Ill Patients Urinary Catheter Date of Insertion: 12/06/21 Urinary Catheter Time of Insertion: 07:48 Data : 12/07/21 03:25 12/07/21 03:25 A&P Assessment and plan (1) Status post aorto-coronary artery bypass graft: POD #1 status post CABG x2 Plan: Aspirin 81 mg daily. Metoprolol 12.5 mg twice daily. Utilize morphine over fentanyl for pain control. Will consider low-dose anxiolytic if there is continued agitation with next attempt at ventilator weaning. Resume citalopram. CBC, BMP, magnesium, chest x-ray in a.m. Status: Acute Attestations Medical Necessity Statement*: POD #1 status post CABG x2 Coding Level of Care Code Acute Community Health Program Coordinator for Chg Fwd Diagnoses Status post aorto-coronary artery bypass graft Z95.1
--- NOTE | 2021-12-07 05:31 | ECG_ITS ---
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 Measurements Intervals [place] Rate: 72 P: 73 W[place]: 160 QRS: 73 QRSD: 120 T: 57 QT: 372 QTc: 408 Interpretive Statements SINUS RHYTHM POSSIBLE RIGHT VENTRICULAR CONDUCTION DELAY [RSR (QR) IN V1/V2] EARLY REPOLARIZATION [ST ELEVATION WITH NORMALLY INFLECTED T-WAVE] Compared to ECG 12/06/2021 16:07:53 Early repolarization now present Right bundle-branch block no longer present Electronically Signed On 12-07-2021 16:34:19 CDT by Mike Ngo M.D. [id number]
[2021-12-07] MEDS: morphine 4 mg/mL SDV 1 mL 2 MG IVP ×2 (06:00→08:32)
--- NOTE | 2021-12-07 06:00 | XRR_ITS ---
PROCEDURE INFORMATION: Exam: XR Chest Exam date and time: 12/07/2021 6:01 AM Age: 76 years old Clinical indication: Other: S/P cabd surg; Prior surgery; Surgery date: Post-operative (0-2 days); Surgery type: S/P cabg surg PT on vent; Additional info: Pod #1 status post cabg TECHNIQUE: Imaging protocol: Radiologic exam of the chest. Views: 1 view. COMPARISON: CR (CHEST, ) 12/06/2021 6:04 PM FINDINGS: Tubes, catheters and devices: An endotracheal tube is present with the tip 3.8 cm above the mandy. The tip of the Lott[place]-Hayes catheter projects on the main pulmonary artery. Nasogastric tube projects on the stomach. There are multiple chest tubes. Lungs: Unremarkable. No consolidation. Pleural spaces: Unremarkable. No pleural effusion. No pneumothorax. Heart/Mediastinum: Status post coronary bypass surgery. No cardiomegaly. Bones/joints: Prominent chronic degenerative changes are present in the left shoulder joint.. XR/XR chest 1V portable [id number] IMPRESSION: Satisfactory postoperative chest.
[2021-12-07 06:16] LABS: Glucose Point of Care 80 mg/dL (70-110)
[2021-12-07 07:04] LABS: Glucose Point of Care 77 mg/dL (70-110)
[2021-12-07 07:31] LABS: ABG PCO2 50.6 mmHg (35-45); ABG PH Result 7.34 (7.35-7.45); Arterial Blood Gas Hematocrit 48.8 % (42-52); Base Excess ABG 0.2 mmol/L (-2.0-2.0); Blood Gas Allen Test Pos; Blood Gas Sample Site Not specified; Blood Gas Sample Type Arterial; HGB O2 Sat 95.9 % (95-100); Ionized Calcium Level - ABG 1.4 mmol/L (1.1-1.4); Methemoglobin 0.5 % (0.4-1.5); Oxygen Saturation ABG > 100.0; Potassium Level - ABG 3.5 mmol/L (3.5-5.0); Total Hemoglobin 15.9 g/dL (14-18)
[2021-12-07 07:33] LABS: ABG PCO2 41.9 mmHg (35-45); ABG PCO2 48.5 mmHg (35-45); ABG PH Result 7.33 (7.35-7.45); ABG PH Result 7.37 (7.35-7.45); Arterial Blood Gas Hematocrit 39.2 % (42-52); Arterial Blood Gas Hematocrit 49.4 % (42-52); Base Excess ABG -1.1 mmol/L (-2.0-2.0); Base Excess ABG -1.2 mmol/L (-2.0-2.0); Blood Gas Allen Test Pos; Blood Gas Sample Type Arterial; Carboxyhemoglobin 2.8 %THgb (0.4-20.1); HCO3 ABG 24.1 mmol/L (22-26); HCO3 ABG 25.5 mmol/L (22-26); HGB O2 Sat 97.1 % (95-100); HGB O2 Sat 97.4 % (95-100); Ionized Calcium Level - ABG 1.2 mmol/L (1.1-1.4); Methemoglobin 0.3 % (0.4-1.5); Methemoglobin 0.6 % (0.4-1.5); Oxygen Saturation ABG > 100.0; Potassium Level - ABG 4.2 mmol/L (3.5-5.0); Potassium Level - ABG 4.9 mmol/L (3.5-5.0); Total Hemoglobin 12.8 g/dL (14-18); Total Hemoglobin 16.1 g/dL (14-18)
[2021-12-07 07:34] LABS: ABG PCO2 41.5 mmHg (35-45); ABG PCO2 44.9 mmHg (35-45); ABG PCO2 50.5 mmHg (35-45); ABG PH Result 7.28 (7.35-7.45); ABG PH Result 7.33 (7.35-7.45); ABG PH Result 7.36 (7.35-7.45); Arterial Blood Gas Hematocrit 38.2 % (42-52); Arterial Blood Gas Hematocrit 38.7 % (42-52); Arterial Blood Gas Hematocrit 40.2 % (42-52); Base Excess ABG -1.8 mmol/L (-2.0-2.0); Base Excess ABG -2.3 mmol/L (-2.0-2.0); Base Excess ABG -3.4 mmol/L (-2.0-2.0); Blood Gas Allen Test Pos; Blood Gas Sample Type Arterial; Carboxyhemoglobin 2.3 %THgb (0.4-20.1); Carboxyhemoglobin 2.9 %THgb (0.4-20.1); HCO3 ABG 23.6 mmol/L (22-26); HCO3 ABG 23.7 mmol/L (22-26); HCO3 ABG 23.8 mmol/L (22-26); HGB O2 Sat 94.1 % (95-100); HGB O2 Sat 96.8 % (95-100); HGB O2 Sat 97.5 % (95-100); Ionized Calcium Level - ABG 1.1 mmol/L (1.1-1.4); Ionized Calcium Level - ABG 1.3 mmol/L (1.1-1.4); Ionized Calcium Level - ABG 1.4 mmol/L (1.1-1.4); Methemoglobin 0.5 % (0.4-1.5); Methemoglobin 0.6 % (0.4-1.5); Oxygen Saturation ABG 97.7; Oxygen Saturation ABG > 100.0; PO2 ABG 95.5 mmHg (80.0-100.0); Potassium Level - ABG 4.3 mmol/L (3.5-5.0); Potassium Level - ABG 5.1 mmol/L (3.5-5.0); Total Hemoglobin 12.5 g/dL (14-18); Total Hemoglobin 12.6 g/dL (14-18); Total Hemoglobin 13.1 g/dL (14-18)
--- NOTE | 2021-12-07 08:12 | PC.OT ---
HOLD OT EVALUATION AT THIS TIME DUE TO PATIENT INTUBATION
[2021-12-07 08:23] LABS: Glucose Point of Care 98 mg/dL (70-110)
[2021-12-07] MEDS: citalopram 20 mg Tablet 40 MG PO (08:37)
[2021-12-07] MEDS: metoprolol tartrate 25 mg Tablet 12.5 MG PO ×2 (08:38→10:52)
[2021-12-07] MEDS: chlorhexidine gluconate 0.12% Btl 473 mL 15 ML MUCOUS MEM ×2 (08:38→16:54)
[2021-12-07] MEDS: tamsulosin 0.4 mg Capsule PO (08:38)
[2021-12-07] MEDS: pantoprazole 40 mg SDV IVP (08:39)
[2021-12-07 09:06] LABS: Glucose Point of Care 105 mg/dL (70-110)
[2021-12-07 10:27] LABS: Glucose Point of Care 122 mg/dL (70-110)
--- NOTE | 2021-12-07 10:30 | PC.PHAR ---
pts verified pts medications-pts alissa [phone] states the pts plavix 75mg daily and diltiazem 240mg 24h cap daily was dced
[2021-12-07 10:41] LABS: Blood Gas Sample Site ART LINE
[2021-12-07 10:42] LABS: Blood Gas Sample Site ART LINE
[2021-12-07 10:51] LABS: Anion Gap 12.7 (5-19); Blood Urea Nitrogen 6 mg/dL (8-23); Calcium 7.7 mg/dL (8.5-10.5); Carbon Dioxide 23 mmol/L (22-29); Chloride 109 mmol/L (98-107); Glucose 108 mg/dL (65-115); Osmolality Calculated 290 mOsm/kg (285-295); Potassium 3.7 mmol/L (3.5-5.1); Sodium 141 mmol/L (136-145)
[2021-12-07] MEDS: mupirocin oint 22 gm 1 APPLIC NASAL ×2 (10:52→16:55)
[2021-12-07 12:11] LABS: Anion Gap 11.9 (5-19); Blood Urea Nitrogen 6 mg/dL (8-23); Calcium 7.7 mg/dL (8.5-10.5); Carbon Dioxide 23 mmol/L (22-29); Chloride 109 mmol/L (98-107); Glucose 101 mg/dL (65-115); Osmolality Calculated 288 mOsm/kg (285-295); Potassium 3.9 mmol/L (3.5-5.1); Sodium 140 mmol/L (136-145)
--- NOTE | 2021-12-07 12:56 | PC.CHAP ---
Pastoral Care Encounter/Spiritual Assessment Type of Contact [] Declined internet marketing coordinator visit [] Patient/Family/Request visit [] Outpatient visit [] Follow-up visit [] Physician referral [] Code/Alert [x] Routine visit [] Staff referral [] Actively dying [] Patient sleeping [] Family support [] [] Out of room [] Palliative care [] [] Receiving care in room [] Pre-surgical visit [] Trauma [] Long length of stay [x] ICU visit [x] Other: vent Relational/Emotional Strength [] Patient feels connected with others/family/visitors/staff [] Distress [] Loneliness/isolation [] Abandonment Spirituality of Patient [] Person of Maty [] Attends Baptist of their Maty [] Believes in Prayer [] Reads Bible or Amish materials [] There are Spiritual issues to be addressed Stereo Equipment Installer Interventions [x] Prayer [] Active listening [] Non-anxious presence [] Spiritual/emotional support [] Crisis/trauma care [] Spiritual counseling [] Bereavement support [] Provided bereavement packet [] Provided Bible/devotional materials [] Provided toy/stuffed animal, coloring book to patient or family member [] Provided Communion [] Anointing/[place] [] Salvation [x] Completed spiritual assessment [] Other: Impact on Illness or Injury [] Angry [] Fearful [] Anxious [] Often cries [] Exhaustion [] Unable to work [] Unable to attend oriental orthodox [] Unable to walk/stand [] Unable to read [] Unable to drive [] Unable to eat/drink [] Unable to sleep [] Unable to be with family [] Patient intubated [] Other: Summary Time spent with patient
[2021-12-07 13:28] LABS: Glucose Point of Care 111 mg/dL (70-110)
[2021-12-07] MEDS: cefUROXime 1,500 MG in sodium chloride 0.9% (plus) 50 ML 200 MG IV ×2 (13:39→23:35)
[2021-12-07] MEDS: propofol 1,000 MG/100 ML INJ 15.79 MG IV ×2 (13:45→19:06)
[2021-12-07] MEDS: LORazepam 0.5 mg Tablet PO (14:35)
--- NOTE | 2021-12-07 16:17 | PM.MISC ---
Miscellaneous Note Purpose of Documentation: Mr. Gutierrez has had a rather uneventful evening other than he has been difficult to arouse and maintain focus. He is moving all extremities spontaneously. This appears to be the effects of potential withdrawal. It is reported that he drinks at least 6 beers per day and does smoke marijuana according to his . We have initiated administration of Ativan which appears to have calmed him substantially. He is FiO2 is only 35% though he has been somewhat tachypneic. His lung hutton are clear. Cardiovascular exam is otherwise unremarkable. Low chest tube output. No further arrhythmias. We are continue to replace potassium. He remains in sinus rhythm. He is receiving beta-blockade with metoprolol. We will initiate CIWA with the assistance of our hospitalist service. Continue ventilator weaning to extubation as tolerated. He currently is on pressure support.
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
[2021-12-07] MEDS: PHENobarbital 130 mg/mL SDV 1 mL IV ×3 (16:53→22:57)
[2021-12-07 17:38] LABS: Alcohol Level < 10 mg/dL (0-10)
--- NOTE | 2021-12-07 18:19 | PC.NURSE ---
Evening rounds Rounds with Dr Escalante. Pt failed weaning trial today. Dr Escalante consulted medical d/t patient's history of alcohol use. Pt has been started on CIWA. Output of medial CT of 150. Output of plueral CTs 75. Pt is on [address] Varela ordered phenobarb which has been given. Pt here during the afternoon and has been updated.
[2021-12-07] MEDS: metoprolol tartrate 25 mg Tablet PO (20:01)
--- NOTE | 2021-12-07 20:26 | ECG_ITS ---
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 Measurements Intervals [place] Rate: 87 P: -38 [place]: 120 QRS: 58 QRSD: 110 T: 51 QT: 339 QTc: 408 Interpretive Statements SINUS RHYTHM INCOMPLETE RIGHT BUNDLE BRANCH BLOCK [90+ ms QRS DURATION, TERMINAL R IN V1/V2, 40+ ms S IN I/aVL/V4/V5/V6] ST ELEVATION, PROBABLY EARLY REPOLARIZATION [ST ELEVATION WITH NORMALLY INFLECTED T-WAVE] Compared to ECG 12/07/2021 05:31:05 Incomplete right bundle-branch block now present ST (T wave) deviation now present Electronically Signed On 12-09-2021 6:34:33 CDT by Virginie Lopez M.D. [id number]
[2021-12-08] VITALS (54 sets, daily range): BP systolic 88–142; BP diastolic 54–91; PULSE 63–141; RESP 12–29; TEMP 36.6–37.2; O2SAT 92–99
[2021-12-08] MEDS: propofol 1,000 MG/100 ML INJ 13.81 MG IV (00:09)
[2021-12-08] MEDS: fentaNYL 50 mcg/mL INJ 2mL IVP ×3 (01:19→23:31)
[2021-12-08] MEDS: PHENobarbital 130 mg/mL SDV 1 mL IV ×3 (02:01→08:02)
[2021-12-08] MEDS: propofol 1,000 MG/100 ML INJ 19.73 MG IV ×4 (04:54→18:49)
[2021-12-08 05:41] LABS: Basophils % 0.2 %; Eosinophils % 0.3 %; Hematocrit 35.6 % (42.0-52.0); Hemoglobin 11.6 g/dL (11.7-16.6); Lymphocytes % 14.3 %; Mean Corpuscular HGB Conc 32.6 g/dL (30.0-36.0); Mean Corpuscular Hemoglobin 35.3 pg (28.0-34.0); Mean Corpuscular Volume 108.2 fl (80-94); Mean Platelet Volume 10.9 fL (7.4-10.4); Monocytes # 1.3 10^3/uL (0.2-0.9); Monocytes % 9.6 %; Neutrophils # 10.47 10^3/uL (1.8-7.7); Neutrophils % 75.2 %; Nucleated Red Blood Cells % 0 %; Platelet Count 136 10^3/cmm (130-400); Red Blood Count 3.29 10^6/uL (4.1-5.3); Red Cell Distribution Width 13.6 % (12.1-15.1); White Blood Count 13.9 10^3/uL (4.0-10.0)
--- NOTE | 2021-12-08 05:49 | PC.NURSE ---
Dr. Escalante to bedside. Updated on patients status and medications given over the 7P shift. Dr. Escalante states that he wants patient to get up on side of bed with PT today.
--- NOTE | 2021-12-08 05:50 | P.PN_ITS ---
Subjective Subjective: Postop day #2 status post CABG x2. Probable alcohol withdrawal. Mr. Gutierrez remains intubated and is sedated with the use of both propofol and phenobarbital every 3 hours for [facility] protocol and recommendation of Dr. Varela. He opens his eyes to verbal stimulus but does not follow commands. He is moving all extremities spontaneously and frequently. He remains hemodynamically stable. Chest tube output approximate 400 cc past 24 hours. No further arrhythmias have been reported. Blood pressure is good. Right radial line remains in place. EKG now reveals an incomplete right bundle branch block. Chest x-ray remains clear. Remains under CIKY protocol. reports he drinks at least 6 beers per day plus occasional marijuana. Vitals/I&O/Wt Last Vital Signs Temp 97.8 F 12/08/21 04:00 Pulse 89 12/08/21 05:00 Resp 20 H 12/08/21 05:00 BP 137/78 12/08/21 05:00 Pulse Ox 95 12/08/21 05:00 O2 Del Method 12/08/21 05:00 O2 Flow Rate 15 12/06/21 15:14 FiO2 35 12/08/21 05:00 12/07/21 12/07/21 12/08/21 14:59 22:59 06:59 Intake Total 188.785 / 971.857 1598.030 / 1776.815 232.020 / 2008.835 Output Total 110 / 110 1225 / 1335 1317 / 2652 Balance 78.785 / 78.785 363.030 / 441.815 -1084.980 / -643.165 Weight last 48 hrs Weight 152 lb 9.6 oz Weight 154 lb 12.8 oz Physical Exam Chest: COMMONS NORMALS: normal inspection of the chest and normal palpation of entire chest wall OTHER: Chest tubes and wound VAC dressing remain in place. Resp: COMMON NORMALS: No use of accessory muscles and clear to auscultation bilaterally AUSCULTATION: clear to auscultation bilaterally Extremity: COMMON NORMALS: no clubbing, cyanosis or edema Neuro: OTHER: He moves all extremities spontaneously. He is not following commands. He is currently under treatment per [facility] protocol for alcohol withdrawal. Urinary Catheter Management: Mcnamara: Cath Placed During This Visit: yes Reason for Continuing Indwelling Catheter: Accurate Measurement of Urinary Output in Critically Ill Patients Urinary Catheter Date of Insertion: 12/06/21 Urinary Catheter Time of Insertion: 07:48 Data : 12/08/21 04:21 12/07/21 11:42 A&P Assessment and plan (1) Alcohol withdrawal: Currently under [facility] protocol. I appreciate expertise of Dr. Varela and our hospitalist colleagues. Status: Acute (2) Status post aorto-coronary artery bypass graft: Postop day #2 status post CABG x2 Plan: Will continue supportive measures. Will leave chest tubes in place for now. Will remain intubated until concurrence with our hospitalist colleagues that it is safe for extubation. We will need to consider tube feedings if he requires intubation for an extended period. Status: Acute Attestations Medical Necessity Statement*: Postop day #2 status post CABG. Alcohol withdrawal. 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
--- NOTE | 2021-12-08 06:00 | XRR_ITS ---
PROCEDURE INFORMATION: Exam: XR Chest Exam date and time: 12/08/2021 4:12 AM Age: 76 years old Clinical indication: Device placement; Prior surgery; Surgery date: Post-operative (0-2 days); Patient HX: F/u pod 2 for cabg. Intubated. ; Additional info: Pod #2 status post cabg TECHNIQUE: Imaging protocol: Radiologic exam of the chest. Views: 1 view. COMPARISON: CR XR chest 1V portable [id number] 12/07/2021 6:01 AM FINDINGS: Tubes, catheters and devices: Endotracheal tube, nasogastric tube and right internal jugular central venous catheter seen without change. Interval removal of the right internal jugular [place]-Hayes catheter. Right Cordis catheter is seen in the upper superior vena cava region. Left surgical chest tube is seen without change. Lungs: There are unchanged lung volumes. Increased left basilar atelectasis/airspace opacities are seen with tiny left pleural effusion. Unchanged minimal accentuation of the perihilar pulmonary vascularity is seen. Pleural spaces: No pneumothorax. Heart/Mediastinum: The heart size is unchanged. Status post median sternotomy and coronary artery bypass graft surgery with sternal wires. There is a mildly tortuous thoracic aorta. The trachea is in the midline. Bones/joints: No acute abnormalities. XR/XR chest 1V portable [id number] IMPRESSION: 1. Lines and tubes, as noted above. Interval removal of the [place]-Hayes catheter. 2. Increased left basilar atelectasis/airspace opacities with tiny left pleural effusion. Unchanged minimal accentuation of the perihilar pulmonary vascularity.
[2021-12-08 06:01] LABS: Blood Urea Nitrogen 6 mg/dL (8-23); Calcium 7.9 mg/dL (8.5-10.5); Carbon Dioxide 25 mmol/L (22-29); Chloride 111 mmol/L (98-107); Glucose 145 mg/dL (65-115); Magnesium 2.2 mg/dL (1.7-2.3); Osmolality Calculated 298 mOsm/kg (285-295); Sodium 144 mmol/L (136-145)
--- NOTE | 2021-12-08 06:55 | PC.NURSE ---
Bedside report completed with Socorro Rice RN.
--- NOTE | 2021-12-08 07:50 | PC.NURSE ---
CIWA assessments: unable to be completely accurate as pt intubated and on Propofol, so patient unable to answer questions about H/A, hallucinations, etc. Pt does get diaphoretic and agitated. Pt does not follow commands. Mostly using these parameters to assess for need of medications. Dr.s lee.
--- NOTE | 2021-12-08 08:03 | PC.OT ---
CONTINUE TO HOLD OT EVALUATION UNTIL PATIENT EXTUBATED AND ABLE TO ACTIVELY PARTICIPATE IN OT EVALUATION AND TREATMENT.
[2021-12-08] MEDS: citalopram 20 mg Tablet 40 MG PO (08:04)
[2021-12-08] MEDS: oxyCODONE-APAP 5-325 mg Tablet PO ×3 (08:04→21:55)
[2021-12-08] MEDS: metoprolol tartrate 25 mg Tablet PO ×2 (08:05→20:27)
[2021-12-08] MEDS: folic acid 1 mg Tablet PO (08:05)
[2021-12-08] MEDS: multivitamin therapeutic Tablet 1 TAB PO (08:05)
[2021-12-08] MEDS: chlorhexidine gluconate 0.12% Btl 473 mL 15 ML MUCOUS MEM ×2 (08:05→17:44)
[2021-12-08] MEDS: mupirocin oint 22 gm 1 APPLIC NASAL ×2 (08:06→17:44)
[2021-12-08] MEDS: tamsulosin 0.4 mg Capsule PO (08:09)
[2021-12-08] MEDS: PHENobarbital 130 mg/mL SDV 1 mL 260 MG IV ×2 (09:10→22:08)
[2021-12-08 10:19] LABS: Glucose Point of Care 147 mg/dL (70-110)
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
[2021-12-08] MEDS: sodium chloride 0.9% 1,000 ML 75 ML IV ×2 (10:24→23:31)
[2021-12-08] MEDS: cefUROXime 1,500 MG in sodium chloride 0.9% (plus) 50 ML 100 MG IV (13:02)
[2021-12-08] MEDS: dexmedeTOMIDine 0.9 % NaCL 400 MCG/100 ML PREMIX IV (13:09)
--- NOTE | 2021-12-08 13:26 | P.PN_ITS ---
Subjective Subjective: Patient required 4-5 doses of phenobarbital overnight He was still very agitated this morning when I evaluated him he was try to get out of the bed he does not open his eyes however still very agitated, intermittent supraventricular tachycardia which goes back to normal sinus rhythm on its own after about 10 seconds his heart rate dropped to 80s, sinus rhythm Hemodynamically stable He is on propofol I have [facility] to increase his phenobarbital to 260 mg every 1 dose now if needed we can use Precedex, avoid phenobarbital drip as it can increase the chances of resp depression and it will be very difficult for us to extubate him afterwards because of increased half-life of phenobarbital Afebrile Hemodynamically stable 400 cc output from chest tube Hemoglobin stable Afebrile Adequate urine output Vitals/I&O/Wt Last Vital Signs Temp 98.2 F 12/08/21 09:15 Pulse 78 12/08/21 09:15 Resp 23 H 12/08/21 13:16 BP 117/65 12/08/21 09:15 Pulse Ox 96 12/08/21 13:16 O2 Del Method 12/08/21 09:15 O2 Flow Rate 15 12/06/21 15:14 FiO2 35 12/08/21 13:16 12/07/21 12/08/21 12/08/21 22:59 06:59 14:59 Intake Total 1588.030 / 1776.815 232.020 / 2008.835 1109.801 / 1109.801 Output Total 1225 / 1335 1317 / 2652 Balance 363.030 / 441.815 -1084.980 / -440.047 9575.801 / 1109.801 Weight last 48 hrs Weight 69.218 kg Weight 70.216 kg Physical Exam Narrative: Patient is intubated, sedated, agitated, chronically out of bed how ever keeping his eyes closed Does not respond to verbal command Euvolemic Bilateral adequate breath sounds no adventitious rhonchi or crackles Abdomen soft Mcnamara catheter draining concentrated urine Neuro exam limited Currently on SIMV [place]'s index is high Urinary Catheter Management: Mcnamara: Cath Placed During This Visit: yes Reason for Continuing Indwelling Catheter: Accurate Measurement of Urinary Ou tput in Critically Ill Patients Urinary Catheter Date of Insertion: 12/06/21 Urinary Catheter Time of Insertion: 07:48 Data : 12/08/21 04:21 08/25/22 04:21 A&P Assessment and plan (1) Alcohol withdrawal: Status: Acute (2) Status post aorto-coronary artery bypass graft: Status: Acute (3) Syncope: Status: Acute (4) Dyspnea on exertion: Status: Acute (5) CAD (coronary artery disease): Status: Acute (6) Hypertension: Status: Acute (7) SVT (supraventricular tachycardia): Status: Acute Plan Alcohol withdrawal Patient has required 4-5 doses of 130 mg of IV phenobarbital QTC 408 No signs of QTC prolonged patient I have increased the dose of phenobarbital 260 mg IV push We can use Precedex to avoid increasing his propofol Dr. Escalante is in agreement to keep him intubated for today Keep an eye on his magnesium and phosphorus level I would avoid phenobarbital drip which was requested by the pharmacy, I would only keep IV as needed pushes Autonomic dysfunction Intermittent SVT, his heart rate jumped up to 140s and dropped to 80s within 10 seconds I asked his ICU nurse not to give metoprolol as he will keep showing autonomic dysfunction because of his withdrawal For any sustained arrhythmia kindly notify MD before any IV medication usage CABG x2 postop day 2 Plan is to keep him intubated for today, Hemodynamically stable Chest tube 400 cc We can remove his art line today if Dr. Escalante is agreeable Depending upon his level of withdrawal, usage of phenobarbital, and weaning trial we will make a decision regarding extubation on 12/09 I will follow along with cardiothoracic Magnesium and potassium at goal Monitor closely for next 24 hours while intubated Phenobarbital can also be used IM and p.o. on medical floor after extubation Attestations Medical Necessity Statement*: Continue ICU management Time Spent in Patient Care: 40 Coding Level of Care Code Acute Experiential Therapist for Chg Fwd Diagnoses Alcohol withdrawal F10.939 Status post aorto-coronary artery bypass graft Z95.1 Syncope R55 Dyspnea on exertion R06.00 CAD (coronary artery disease) I25.10 Hypertension I10 SVT (supraventricular tachycardia) I47.1
--- NOTE | 2021-12-08 13:36 | PC.NURSE ---
EKG: sinus rhythm with incomplete bundle branch block
--- NOTE | 2021-12-08 13:53 | PC.NURSE ---
Right wrist Artline removed. Pressure held until hemostatis obtained. Gauze and bioclusive dressing applied. Right wrist IV and dressing loose. Removed. Cath tip intact. Pt tolerated all well.
--- NOTE | 2021-12-08 16:40 | ECG_ITS ---
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 Measurements Intervals [place] Rate: 65 P: 70 DE: 163 QRS: 42 QRSD: 125 T: 25 QT: 393 QTc: 409 Interpretive Statements SINUS RHYTHM POSSIBLE RIGHT VENTRICULAR CONDUCTION DELAY [RSR (QR) IN V1/V2] Compared to ECG 12/07/2021 20:26:05 Incomplete right bundle-branch block no longer present ST (T wave) deviation no longer present Early repolarization no longer present Electronically Signed On 12-09-2021 6:28:16 CDT by Virginie Lopez M.D. [id number]
[2021-12-08 17:01] LABS: Add Urine Microscopic? YES; Bilirubin Urine Neg (Negative); Blood Urine 2+ (Negative); Glucose Urine UA Norm (Normal); Ketones Urine Negative (Negative); Leukocyte Esterase Urine Negative (Negative); Mucus Urine 1+ /hpf; Nitrate Urine Negative (Negative); Protein Urine Neg (Negative); Squamous Epithelial Cell Urine 0-4 /hpf (0-5); Urine Appearance Clear (CLEAR); Urine Color Yellow (Yellow); Urobilinogen Urine Norm (Negative); pH Urine 5 (5-7)
[2021-12-08 17:02] LABS: Add Urine Culture? No; Hyaline Casts Urine 0-4 /lpf
[2021-12-08 17:03] LABS: Transitional Epi Cells Urine 0-4 /hpf
--- NOTE | 2021-12-08 18:30 | PC.NURSE ---
Shift Note: Pt remains sedated and intubated. Pt does not follow commands. He does squirm all over the bed. Lungs remain clear to auscultation, Vent at 35% FIO2. CIWA scores improved after the phenobarbital dose increase. Jerad of his agitation/squirming is related to pain not CIWA. His said he does not tolerate laying on his back well. Precedex was started today, now infusing at 0.4 mcg/kg/hr. Pt worked with pt today and he sat on side of the bed. Chest tubes remain patent and draining Mediastinal had more output than pleural, both are starting to turn to serou drainage. Urine output of 750ml noted this shift. , Laury has called multiple times this shift and has been kept updated on his paln of care and progress. Frequent safety and comfort rounds continue. Orders and/or nursing care completed as indicated. Patient monitored for response to intervention and treatment(s). Education provided includes Phenobarbital, precedex, CIWA, plan of care and progress. Patient s auto service representative verbalized understanding to plan of care , progress and new medications discussed. . Will continue to monitor.
--- NOTE | 2021-12-08 19:03 | PC.NURSE ---
Bedside report completed with Socorro Rice RN
[2021-12-08] MEDS: dexmedeTOMIDine 0.9 % NaCL 400 MCG/100 ML PREMIX 17.31 MCG IV (23:31)
[2021-12-09] VITALS (57 sets, daily range): BP systolic 82–136; BP diastolic 50–79; PULSE 62–147; RESP 12–35; TEMP 36.7–38.2; O2SAT 93–99
[2021-12-09] MEDS: PHENobarbital 130 mg/mL SDV 1 mL 260 MG IV ×5 (01:30→22:40)
[2021-12-09 03:59] LABS: Basophils % 0.3 %; Eosinophils # 0.2 10^3/uL (0.0-0.8); Eosinophils % 1.8 %; Hematocrit 34.2 % (42.0-52.0); Hemoglobin 10.9 g/dL (11.7-16.6); Lymphocytes # 2.1 10^3/uL (0.8-4.8); Lymphocytes % 15.7 %; Mean Corpuscular HGB Conc 31.9 g/dL (30.0-36.0); Mean Corpuscular Hemoglobin 34.6 pg (28.0-34.0); Mean Corpuscular Volume 108.6 fl (80-94); Mean Platelet Volume 10.8 fL (7.4-10.4); Monocytes % 7.9 %; Neutrophils # 9.68 10^3/uL (1.8-7.7); Neutrophils % 73.6 %; Nucleated Red Blood Cells % 0 %; Platelet Count 133 10^3/cmm (130-400); Red Blood Count 3.15 10^6/uL (4.1-5.3); Red Cell Distribution Width 13.7 % (12.1-15.1); White Blood Count 13.2 10^3/uL (4.0-10.0)
[2021-12-09] MEDS: dexmedeTOMIDine 0.9 % NaCL 400 MCG/100 ML PREMIX 17.31 MCG IV ×2 (04:05→09:42)
[2021-12-09] MEDS: oxyCODONE-APAP 5-325 mg Tablet PO ×2 (04:16→13:02)
[2021-12-09 04:37] LABS: Anion Gap 9.7 (5-19); Blood Urea Nitrogen 8 mg/dL (8-23); Calcium 7.8 mg/dL (8.5-10.5); Carbon Dioxide 26 mmol/L (22-29); Chloride 112 mmol/L (98-107); Glucose 137 mg/dL (65-115); Magnesium 2.1 mg/dL (1.7-2.3); Osmolality Calculated 298 mOsm/kg (285-295); Phosphorus 2.4 mg/dL (2.5-4.5); Potassium 3.7 mmol/L (3.5-5.1); Sodium 144 mmol/L (136-145)
[2021-12-09] MEDS: potassium chloride premix 100 ML 50 MEQ IV (05:14)
--- NOTE | 2021-12-09 05:42 | PM.PN ---
Subjective Subjective: Postop day #3 status post CABG x2. Currently still intubated and sedated with Precedex and phenobarbital per [facility] protocol Greatly appreciate expertise and efforts of Dr. Varela and our hospitalist colleagues. Nurses report that Mr. Pelayo is now tracking to 2 nurses voice when his name is spoken though still has not following commands appropriately. He still has spontaneous movements of all extremities. Enteral feedings were initiated yesterday. Some cloudy sputum production is noted during ET suctioning overnight. White count remains 13,000. There is a 1 g drop in hemoglobin though his intake and output is up almost 1.5 L. Chest tube output just below 400 cc. No arrhythmias reported. Blood pressure is stable. No acute EKG changes. Still requiring only 35% FiO2. Vitals/I&O/Wt Last Vital Signs Temp 98.9 F 12/09/21 04:00 Pulse 67 12/09/21 05:30 Resp 26 H 12/09/21 04:16 BP 136/79 12/09/21 04:00 Pulse Ox 97 12/09/21 04:00 O2 Del Method 12/09/21 04:00 O2 Flow Rate 15 12/06/21 15:14 FiO2 35 12/09/21 04:00 12/08/21 12/08/21 12/09/21 14:59 22:59 06:59 Intake Total 1176.883 / 1176.883 356.744 / 9614.319 1169.818 / 2985.445 Output Total 60 / 60 925 / 985 630 / 1615 Balance 1116.883 / 1116.883 -568.256 / 548.627 821.818 / 1370.445 Weight last 48 hrs Weight 155 lb 3.2 oz Weight 152 lb 9.6 oz Weight 154 lb 12.8 oz Physical Exam Chest: OTHER: Basilar crackles are noted. Cardio: COMMON NORMALS: regular rate, regular rhythm, S1 normal heart sound present and No murmurs present (Cardio) RATE: regular rate RHYTHM: regular rhythm HEART SOUNDS: S1 normal heart sound present OTHER: There is a bit of a chest tube rub. GI: OTHER: Hypoactive bowel sounds. No distention. Urinary Catheter Management: Mcnamara: Cath Placed During This Visit: yes Reason for Continuing Indwelling Catheter: Accurate Measurement of Urinary Output in Critically Ill Patients Urinary Catheter Date of Insertion: 12/06/21 Urinary Catheter Time of Insertion: 07:48 Data : 12/09/21 03:24 12/09/21 03:24 A&P Assessment and plan (1) Status post aorto-coronary artery bypass graft: Postop day #3. We will leave mediastinal drains and left pleural tube in for now until patient is more alert and active and can participate in recovery. Will initiate Zosyn empirically, first dose now, with our current sputum production noted. Antibiotic adjustments or more specificity per our hospitalist colleagues. Sputum to be collected for gram stain and culture. CBC, BMP, chest x-ray in a.m. Will obtain another BMP at noon today as she currently is undergoing further potassium supplementation. Status: Acute (2) Alcohol withdrawal: Greatly appreciate expertise of Dr. Varela. Continuing support during acute withdrawal recovery Status: Acute Attestations Medical Necessity Statement*: Postop day #3 status post CABG with acute alcohol withdrawal Coding Level of Care Code Acute Sales Estimator for Chg Fwd Diagnoses Status post aorto-coronary artery bypass graft Z95.1 Alcohol withdrawal F10.939
[2021-12-09] MEDS: piperacillin-tazobactam 3.375 GM in sodium chloride 0.9% (plus) 50 ML IV ×3 (05:55→21:13)
[2021-12-09] MEDS: fentaNYL 50 mcg/mL INJ 2mL IVP ×2 (06:19→08:34)
--- NOTE | 2021-12-09 07:00 | PC.NURSE ---
Bedside report completed with Socorro Turner RN.
[2021-12-09 07:28] LABS: ABG PCO2 37.9 mmHg (35-45); ABG PH Result 7.44 (7.35-7.45); Alveolar-Arterial Oxygen Gradi 15.4 mmHg (5-10); Base Excess ABG 1.8 mmol/L (-2.0-2.0); Blood Gas Allen Test Pos; Blood Gas Operator Identificat GD; Blood Gas Sample Site Radial, right; Blood Gas Sample Type Arterial; Carboxyhemoglobin 1.6 %THgb (0.4-20.1); HCO3 ABG 25.9 mmol/L (22-26); HGB O2 Sat 95.9 % (95-100); Ionized Calcium Level - ABG 1.2 mmol/L (1.1-1.4); Methemoglobin 0.6 % (0.4-1.5); Oxygen Device VENT; Oxygen Saturation ABG 97.9; PO2 ABG 83.8 mmHg (80.0-100.0); Potassium Level - ABG 4.3 mmol/L (3.5-5.0); Total Hemoglobin 11.1 g/dL (14-18)
[2021-12-09] MEDS: multivitamin therapeutic Tablet 1 TAB PO (08:58)
[2021-12-09] MEDS: sennosides-docusate Tablet 2 TAB PO (08:58)
[2021-12-09] MEDS: folic acid 1 mg Tablet PO (08:58)
[2021-12-09] MEDS: citalopram 20 mg Tablet 40 MG PO (08:58)
[2021-12-09] MEDS: metoprolol tartrate 25 mg Tablet PO ×2 (08:58→21:13)
[2021-12-09] MEDS: chlorhexidine gluconate 0.12% Btl 473 mL 15 ML MUCOUS MEM ×2 (08:59→17:55)
[2021-12-09] MEDS: thiamine 100 mg Tablet PO (08:59)
[2021-12-09] MEDS: tamsulosin 0.4 mg Capsule PO (08:59)
[2021-12-09] MEDS: mupirocin oint 22 gm 1 APPLIC NASAL ×2 (08:59→17:55)
[2021-12-09] MEDS: propofol 1,000 MG/100 ML INJ 15.79 MG IV (10:09)
--- NOTE | 2021-12-09 10:10 | PC.NURSE ---
Morphine pain reassessment , none per FLACC.
--- NOTE | 2021-12-09 10:30 | PC.NURSE ---
Shift started with pt resting with eyes closed, no s/s of distress. Precedex gtt decreased to start spontaneous weaning trail, stop IV fluids tube feedings, , and no propofol. Dr Varela, then in unit, assessed pt, pt became agitated. throwing his feet out of the bed, pushing with his elbows again mattress, raising up. He would also push with his feet and bow his body up. Tube feeding turned off to prevent aspiration. He would thrash his head side to side. Peripheral IV on right shoulder now out. Pt unable to comprehend or follow commands. At times pause movement and hold still if his name was shouted. Per Dr Varela's direction Phenobarbital IVP and Fentanyl IVP admin. Pt continues to thrash around At times popping vent tubing apart and stretching his CVL lines. After 30 minutes of this morphine IV administered. Pt diaphoretic. CVL dressing loose. Heart rate now elevated 140's. Am meds admin per OG, for beta cristiano. Thrashing slows down but pt still all over the bed and scooted down in the bed. Dr Varela notified vai telephone that pt is still very agitated, and there is concern for his IV lines, ETT and chest tubes Orders to restart Propofol received. Propofol started at 40mcg/kg/min. Within 15 minutes patient started settling down., heart rate back to 100-110. Per Dr Varela restart tube feeding at 10ml/hr, pt will not be extubated today.
--- NOTE | 2021-12-09 11:16 | PC.OT ---
OT eval order received. Pt intubated; will attempt evaluation tomorrow.
--- NOTE | 2021-12-09 11:25 | PM.PN ---
Subjective Subjective: This morning patient was extremely agitated, he was not doing well on Precedex and phenobarbital 260 mg which has been increased since yesterday A lot of thick yellow mucoid secretions were suctioned as well I will repeat his chest x-ray I do believe there is some underlying etiology for his worsening of delirium other than alcohol withdrawal, UA was done yesterday, will repeat x-ray today Will increase his thiamine to 500 mg Did touch base with Dr. Escalante, because of his agitation we are not able to extubate him today he opens his eyes but not able to follow commands, he is not able to track with his eyes as well, he is not blinking on apprehension test Considering recent surgery he is at risk of making his wound worse hence decision was made to keep him sedated and intubated Leukocytosis at 13,000, afebrile No worsening of kidney function, ABG is normal His phosphorus was low Later on we had to add propofol along fentanyl and Precedex Look for other causes of delirium Vitals/I&O/Wt Last Vital Signs Temp 98.9 F 12/09/21 04:00 Pulse 67 12/09/21 06:00 Resp 35 H 12/09/21 09:36 BP 119/67 12/09/21 06:00 Pulse Ox 94 12/09/21 09:36 O2 Del Method 12/09/21 06:00 O2 Flow Rate 15 12/06/21 15:14 FiO2 35 12/09/21 09:36 12/08/21 12/09/21 12/09/21 22:59 06:59 14:59 Intake Total 356.744 / 9267.016 5446.996 / 3018.623 876.126 / 876.126 Output Total 925 / 985 630 / 1615 Balance -568.256 / 548.627 854.996 / 1403.623 876.126 / 876.126 Weight last 48 hrs Weight 70.398 kg Weight 69.218 kg Weight 70.216 kg Physical Exam Narrative: Patient is extremely agitated He opens eyes but not able to track us or follow commands Euvolemic does not look fluid overloaded to me Urine color is normal Abdomen soft Surgical scar kailyn with dressing Chest tubes in place Patient intubated, with his eyes open very agitated trying to get out of the bed and self extubate It took 2 people to calm him down and give him sedatives Currently on tube feeds at lower rate He was on Precedex, propofol and fentanyl were added later on Urinary Catheter Management: Mcnamara: Cath Placed During This Visit: yes Reason for Continuing Indwelling Catheter: Accurate Measurement of Urinary Output in Critically Ill Patients Urinary Catheter Date of Insertion: 12/06/21 Urinary Catheter Time of Insertion: 07:48 Data : 12/09/21 03:24 12/09/21 03:24 Micro: Microbiology 12/09/21 05:40 Gram Stain - Final Sputum - Endotracheal Tube Aspirate A&P Assessment and plan (1) SVT (supraventricular tachycardia): Status: Acute (2) Status post aorto-coronary artery bypass graft: Status: Acute (3) Alcohol withdrawal: Status: Acute (4) Syncope: Status: Acute (5) Dyspnea on exertion: Status: Acute (6) CAD (coronary artery disease): Status: Acute (7) Hypertension: Status: Acute Plan Alcohol withdrawal Mostly people respond very well to phenobarbital within 48 hours, I would like to rule out other etiologies for his worsening delirium, thick mucoid secretions were suctioned, concern for hospital-acquired pneumonia? 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 He does have metoprolol on board if needed however with his tachyarrhythmia he spontaneously converted to sinus rhythm and heart rate is below 100 within a few seconds Check B12 level, I am reluctant to add Seroquel along phenobarbital to avoid QTC prolongation Not ready for extubation Increase thiamine dose of 500 mg for possible Wernicke's/Korsakoff syndrome Target blood glucose 140s to 180 No signs of UTI Escalate antibiotics to vancomycin and Zosyn, check MRSA nasal PCR Check ammonia level Hypophosphatemia: Repleted Mechanical ventilator patient is intubated and sedated Requiring Precedex, phenobarb, propofol and fentanyl Not ready for extubation [place]'s index is high at Hemodynamically stable Not on vasopressors Adequate urine output Afebrile Monitor for fluid overload Nutritional status: Started tube feedings yesterday, I will keep him on trickle feed for now I do not think we are suctioning tube feeding because the color is different We will follow-up with gram stain and culture CABG x2 Postop day [address] Escalante Antiplatelet therapy, statin therapy as per cardiothoracic recommendations BPH history continue tamsulosin Full code Currently on tube feeds Not ready for extubation Look for other etiologies for his worsening of delirium Attestations Medical Necessity Statement*: Continue ICU Critical Care Time: 30 Coding Level of Care Code Acute Mortgage Lender for g Fwd Diagnoses SVT (supraventricular tachycardia) I47.1 Status post aorto-coronary artery bypass graft Z95.1 Alcohol withdrawal F10.939 Syncope R55 Dyspnea on exertion R06.00 CAD (coronary artery disease) I25.10 Hypertension I10
--- NOTE | 2021-12-09 12:21 | PC.NUTR ---
Consult for TF received. Recommend Jevity 1.2 beginning at 15 mls/hr and increasing 10 mls Q8H as tolerated until a goal rate of 55 mls/hr is reached, with flushes of 100 mls Q4H. Details in RD assessment.
[2021-12-09 12:24] LABS: Anion Gap 10.3 (5-19); Blood Urea Nitrogen 11 mg/dL (8-23); Calcium 8.3 mg/dL (8.5-10.5); Carbon Dioxide 26 mmol/L (22-29); Chloride 112 mmol/L (98-107); Glucose 134 mg/dL (65-115); Osmolality Calculated 299 mOsm/kg (285-295); Potassium 4.3 mmol/L (3.5-5.1); Sodium 144 mmol/L (136-145)
[2021-12-09 12:44] LABS: Vitamin B12 320 pg/mL (232-1245)
[2021-12-09 12:48] LABS: Ammonia 28 umol/L (16-60)
[2021-12-09] MEDS: vancomycin 1,000 MG in sodium chloride 0.9% 250 ML 250 MG IV (13:01)
[2021-12-09] MEDS: lactulose oral liq 20 gm/30 mL UDC 10 GM NG-TUBE (13:02)
--- NOTE | 2021-12-09 13:16 | PC.CHAP ---
Pastoral Care Encounter/Spiritual Assessment Type of Contact [] Declined lead massage therapist visit [] Patient/Family/Request visit [] Outpatient visit [] Follow-up visit [] Physician referral [] Code/Alert [x] Routine visit [] Staff referral [] Actively dying [x] Patient sleeping [] Family support [] [] Out of room [] Palliative care [] [] Receiving care in room [] Pre-surgical visit [] Trauma [] Long length of stay [] ICU visit [] Other: Relational/Emotional Strength [] Patient feels connected with others/family/visitors/staff [] Distress [] Loneliness/isolation [] Abandonment Spirituality of Patient [] Person of Maty [] Attends Scientology of their Maty [] Believes in Prayer [] Reads Bible or Restoration materials [] There are Spiritual issues to be addressed Environmental Geologist Interventions [x] Prayer [] Active listening [] Non-anxious presence [] Spiritual/emotional support [] Crisis/trauma care [] Spiritual counseling [] Bereavement support [] Provided bereavement packet [] Provided Bible/devotional materials [] Provided toy/stuffed animal, coloring book to patient or family member [] Provided Communion [] Anointing/[place] [] Salvation [x] Completed spiritual assessment [] Other: Impact on Illness or Injury [] Angry [] Fearful [] Anxious [] Often cries [] Exhaustion [] Unable to work [] Unable to attend presybeterian [] Unable to walk/stand [] Unable to read [] Unable to drive [] Unable to eat/drink [] Unable to sleep [] Unable to be with family [] Patient intubated [] Other: Summary Time spent with patient
[2021-12-09] MEDS: ondansetron 2 mg/ML SDV 2 mL 4 MG IVP (13:20)
--- NOTE | 2021-12-09 13:30 | PC.NURSE ---
Pt started getting agitated. Oxycodone and Lactulose administered per OG. Tube feeding off for med administration. Within 10 minutes pt became more agitated and copious yellow vomitus erupted around OG, all over bed linens and CVL/Cordis site. Suctioning provided. OG to wall suction, immediate return of 110 drainage. OG now to LIS. Pt very agitated, thrashing around the bed. Zofran and Phenobarbital admin. Concern for chest tube and ETT safety now. Pt's heart rate elevate to 140's, SVT then went converted briefly, back to SVT then A flutter, SVT again and finally settled down to sinus in the 60's. Dr Varela notified of event, to wait for phenobarbital to take effect.
--- NOTE | 2021-12-09 14:35 | PC.NURSE ---
Peripheral IV started. Cordis and CVL line removed after cleaning area thoroughly with chlorahexadine. Pressure held until hemostatis obtained. Gauze and Bioclusive dressing applied. Laury Woodson, now at beside.Update provided. Dressing changed around chest tubes. Then bath, shampoo and Linen change provided.
[2021-12-09] MEDS: propofol 1,000 MG/100 ML INJ 11.84 MG IV (14:53)
[2021-12-09] MEDS: dexmedeTOMIDine 0.9 % NaCL 400 MCG/100 ML PREMIX 20.77 MCG IV ×2 (14:53→19:57)
[2021-12-09] MEDS: acetylcysteine 200 mg/mL SDV 4 mL INHALATION ×2 (17:15→20:31)
[2021-12-09] MEDS: ipratropium-albuterol 3 mL Neb INHALATION ×2 (17:15→20:31)
[2021-12-09] MEDS: cefepime 1,000 MG in sodium chloride 0.9% (plus) 50 ML 100 MG IV (17:55)
--- NOTE | 2021-12-09 18:30 | PC.NURSE ---
Pt now febrile . 100.7 axillary. Terra Varela notified. Sepsis protocol initiated. Blood cultures and lactic acid drawn. Orders for over 2 liters of fluid in an hour. Verified amount of fluids with Dr Varela, Start with 1 liter, if not overloaded give the rest of the fluid.
--- NOTE | 2021-12-09 19:05 | PC.NURSE ---
Bedside report completed with Elizabeth Resendiz RN.
[2021-12-09 19:24] LABS: Lactic Sepsis W/Reflex 1.3 mmol/L (0.5-2.2)
--- NOTE | 2021-12-09 20:20 | PC.NURSE ---
Shift Note: Pt has had a rough day with withdrawal , breathing trial, fast heart rate and emesis. He is back on his full sedation of Precedex and Propofol. He has received Phenobarbital twice this shift. Tube feeding discontinued with OG to LIS now. Vancomycin and Cefepime started today. He was febrile at end of shift. Cordis and CVL removed to lessen chance of infections. His chest tubes remains intact and patent. Dressing s changed today, Chest tube chamber changed this am. , Laury, very attentive, calling for updates several times today. Urine out put 475m this shift. Blood cultures drawn at end of shift. Frequent safety and comfort rounds continue. Orders and/or nursing care completed as indicated. Patient monitored for response to intervention and treatment(s). Education provided includes Vancomycin, cefepime, zofran, progress with withdrawal and plan of care.. Patient's sales training representative verbalized understanding of progress , medications, and on going plan of care. . Will continue to monitor.
[2021-12-09 22:42] LABS: Lactate (Lactic Acid level) 1.1 mmol/L (0.5-2.2)
[2021-12-10] VITALS (44 sets, daily range): BP systolic 92–123; BP diastolic 48–87; PULSE 61–145; RESP 12–48; TEMP 36.8–37.2; O2SAT 90–98
[2021-12-10] MEDS: propofol 1,000 MG/100 ML INJ 11.84 MG IV ×2 (00:06→04:24)
[2021-12-10] MEDS: dexmedeTOMIDine 0.9 % NaCL 400 MCG/100 ML PREMIX 20.77 MCG IV ×4 (00:35→17:32)
[2021-12-10] MEDS: vancomycin 1,000 MG in sodium chloride 0.9% 250 ML 250 MG IV ×4 (00:35→23:31)
[2021-12-10] MEDS: acetylcysteine 200 mg/mL SDV 4 mL INHALATION ×6 (00:38→23:23)
[2021-12-10] MEDS: ipratropium-albuterol 3 mL Neb INHALATION ×6 (00:38→23:23)
[2021-12-10] MEDS: cefepime 1,000 MG in sodium chloride 0.9% (plus) 50 ML 100 MG IV ×2 (03:36→16:55)
[2021-12-10] MEDS: PHENobarbital 130 mg/mL SDV 1 mL 260 MG IV ×3 (04:14→12:57)
[2021-12-10] MEDS: piperacillin-tazobactam 3.375 GM in sodium chloride 0.9% (plus) 50 ML IV ×3 (05:14→21:46)
--- NOTE | 2021-12-10 06:00 | XRR_ITS ---
PROCEDURE INFORMATION: Exam: XR Chest Exam date and time: 12/10/2021 7:40 AM Age: 76 years old Clinical indication: Dyspnea; Additional info: Pod#4 cabg/alcohol withdrawal TECHNIQUE: Imaging protocol: Radiologic exam of the chest. Views: 1 view. COMPARISON: CR XR chest 1V portable [id number] 12/08/2021 4:12 AM FINDINGS: Tubes, catheters and devices: Endotracheal tube and nasogastric tube are seen without change. Interval removal of the right internal jugular catheters. Lungs: There are unchanged lung volumes. Decreased left basilar interstitial and patchy airspace opacities are seen. Unchanged small left pleural effusion. Pleural spaces: There is no right pleural effusion. No pneumothorax. Heart/Mediastinum: The heart size is unchanged. The patient is status post median sternotomy and coronary artery bypass graft surgery with sternal wires. There is a mildly tortuous thoracic aorta. The trachea is in the midline. Bones/joints: No acute abnormalities. Unchanged severe left and mild right shoulder degenerative changes are seen. XR/XR chest 1V portable [id number] IMPRESSION: 1. Endotracheal tube and nasogastric tube in place without change. 2. Unchanged lung volumes. Decreased left basilar interstitial and patchy airspace opacities. Unchanged small left pleural effusion.
[2021-12-10 06:40] LABS: Basophils % 0.3 %; Eosinophils # 0.2 10^3/uL (0.0-0.8); Hematocrit 34.3 % (42.0-52.0); Hemoglobin 10.9 g/dL (11.7-16.6); Lymphocytes # 1.7 10^3/uL (0.8-4.8); Lymphocytes % 14.6 %; Mean Corpuscular HGB Conc 31.8 g/dL (30.0-36.0); Mean Corpuscular Hemoglobin 35.2 pg (28.0-34.0); Mean Corpuscular Volume 110.6 fl (80-94); Mean Platelet Volume 10.9 fL (7.4-10.4); Monocytes # 0.8 10^3/uL (0.2-0.9); Monocytes % 6.7 %; Neutrophils # 9.06 10^3/uL (1.8-7.7); Neutrophils % 76.1 %; Nucleated Red Blood Cells % 0 %; Platelet Count 139 10^3/cmm (130-400); Red Cell Distribution Width 13.9 % (12.1-15.1); White Blood Count 11.9 10^3/uL (4.0-10.0)
[2021-12-10 06:57] LABS: Anion Gap 12.8 (5-19); Blood Urea Nitrogen 11 mg/dL (8-23); C Reactive Protein 233.7 mg/L (0.0-4.9); Calcium 7.5 mg/dL (8.5-10.5); Carbon Dioxide 22 mmol/L (22-29); Chloride 114 mmol/L (98-107); Glucose 134 mg/dL (65-115); Osmolality Calculated 301 mOsm/kg (285-295); Phosphorus 2.5 mg/dL (2.5-4.5); Potassium 3.8 mmol/L (3.5-5.1); Sodium 145 mmol/L (136-145)
[2021-12-10 07:04] LABS: Procalcitonin 3.58 ng/mL (0-0.5)
--- NOTE | 2021-12-10 07:06 | PC.NURSE ---
bedside report received from Viviane MEZA
[2021-12-10 08:05] LABS: Glucose Point of Care 130 mg/dL (70-110)
--- NOTE | 2021-12-10 09:08 | PC.OT ---
OT orders received. Patient is ventilated and on full sedation at this time. Will attempt OT evaluation when appropriate. Adonay Moses, OTR/L
[2021-12-10] MEDS: multivitamin therapeutic Tablet 1 TAB PO (09:22)
[2021-12-10] MEDS: sennosides-docusate Tablet 2 TAB PO (09:22)
[2021-12-10] MEDS: mupirocin oint 22 gm 1 APPLIC NASAL ×2 (09:22→19:17)
[2021-12-10] MEDS: aspirin 81 mg EC Tablet PO (09:22)
[2021-12-10] MEDS: folic acid 1 mg Tablet PO (09:22)
[2021-12-10] MEDS: citalopram 20 mg Tablet 40 MG PO (09:22)
[2021-12-10] MEDS: tamsulosin 0.4 mg Capsule PO (09:22)
[2021-12-10] MEDS: chlorhexidine gluconate 0.12% Btl 473 mL 15 ML MUCOUS MEM ×2 (09:22→19:16)
[2021-12-10] MEDS: metoprolol tartrate 25 mg Tablet PO (09:27)
--- NOTE | 2021-12-10 09:31 | P.PN_ITS ---
Subjective Subjective: Postop day #4 status post CABG x2/alcohol withdrawal Mr. Gutierrez is beginning to become a bit more appropriate and is responding to voice though not to command. He is still requiring Precedex to control agitation. Vital signs remained stable. Chest tube output is now about 200 cc in past 24 hours. Chest x-ray remains clear. Antibiotic regimen has been increased and broadened due to it episode of emesis yesterday. I do note the elevated procalcitonin White count is minimally elevated at 11.9 and has decreased over the past 2 days. Central line was removed yesterday. Intake and output is up approximately 4 L Vitals/I&O/Wt Last Vital Signs Temp 98.8 F 12/10/21 08:00 Pulse 66 12/10/21 08:14 Resp 20 H 12/10/21 08:17 BP 95/57 12/10/21 08:00 Pulse Ox 96 12/10/21 08:17 O2 Del Method 12/10/21 08:14 O2 Flow Rate 15 12/06/21 15:14 FiO2 35 12/10/21 08:17 12/09/21 12/10/21 12/10/21 22:59 06:59 14:59 Intake Total 1952.675 / 3200.730 2844.417 / 6045.147 Output Total 585 / 793 985 / 1778 Balance 1367.675 / 2407.730 1859.417 / 4267.147 Weight last 48 hrs Weight 155 lb 3.2 oz Physical Exam Chest: OTHER: Wound VAC dressing remains in place. Chest wall is stable. Mediastinal and pleural drains remain in place. Resp: COMMON NORMALS: clear to auscultation bilaterally AUSCULTATION: clear to auscultation bilaterally OTHER: Tachypneic though this may be related to agitation. Still requiring only 35% FiO2 Cardio: COMMON NORMALS: regular rate, regular rhythm, S1 normal heart sound present and No murmurs present (Cardio) RATE: regular rate RHYTHM: regular rhythm HEART SOUNDS: S1 normal heart sound present GI: OTHER: Abdomen is soft. Urinary Catheter Management: Mcnamara: Cath Placed During This Visit: yes Reason for Continuing Indwelling Catheter: Accurate Measurement of Urinary Output in Critically Ill Patients Urinary Catheter Date of Insertion: 12/06/21 Urinary Catheter Time of Insertion: 07:48 Data : 12/10/21 06:23 12/10/21 06:23 Micro: Microbiology 12/09/21 18:48 Blood Culture - Preliminary Blood SPECIMEN COLLECTED 12/09/21 18:43 Blood Culture - Preliminary Blood SPECIMEN COLLECTED 12/09/21 05:40 Gram Stain - Final Sputum - Endotracheal Tube Aspirate A&P Assessment and plan (1) Status post aorto-coronary artery bypass graft: Postop day #4 status post CABG x2/alcohol withdrawal with delirium slowly improving. Plan: Potassium replacement with 40 mill equivalents IV piggyback Lasix 20 mg IV for volume expansion BMP at 2 PM for reassessment of potassium level Reassessment midday for possible extubation. I do feel some of his tachypnea is anxiety and delirium related and may actually improve with the ET tube removal. I conferred with Kiley, his nurse as well as our respiratory therapist and further decisions for extubation will be made later that midday. Greatly appreciate expertise and efforts of our hospitalist colleagues with this challenging situation. I have spoken with his this morning with the update. All questions were answered. Status: Acute Attestations Medical Necessity Statement*: Postop day #4 status post CABG/alcohol withdrawal Coding Level of Care Code Acute Medical Device Sales Representative for Chg Fwd Diagnoses Status post aorto-coronary artery bypass graft Z95.1
[2021-12-10] MEDS: lidocaine 1% 5 ML in potassium chloride premix 100 ML 25 ML IV (09:32)
[2021-12-10] MEDS: FUROsemide 10 mg/mL SDV 2mL 20 MG IVP (09:33)
[2021-12-10] MEDS: oxyCODONE-APAP 5-325 mg Tablet PO (09:50)
--- NOTE | 2021-12-10 10:00 | PC.NURSE ---
will hold phenobarb at this time in an attempt to extubate
--- NOTE | 2021-12-10 10:55 | PC.NURSE ---
pt exubated per RT to 4 L nc. NG tube removed. Dr. Varela at bedside.
--- NOTE | 2021-12-10 13:27 | ECG_ITS ---
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 Measurements Intervals [place] Rate: 87 P: 54 LA: 159 QRS: 41 QRSD: 126 T: -3 QT: 361 QTc: 437 Interpretive Statements SINUS RHYTHM RIGHT BUNDLE BRANCH BLOCK [120+ ms QRS DURATION, UPRIGHT V1, 40+ ms S IN I/aVL/V4/V5/V6] Compared to ECG 12/08/2021 16:40:59 Right bundle-branch block now present Electronically Signed On 12-11-2021 8:20:54 CDT by Mike Ngo M.D. [id number]
--- NOTE | 2021-12-10 14:09 | PM.PN ---
Subjective Subjective: Patient was extubated to 6 L nasal cannula He was saturating above 95% on 6 L He is keeping his eyes closed, still not able to track or follow commands He is moving all of his extremities Nonpurposeful movements Urine color is normal He was given Lasix Chest x-ray showed improvement of infiltrate which most likely is due to congestive heart failure underlying pneumonia has not been completely ruled out His ammonia level and B12 was normal I will request HIV and syphilis RPR Is suffering from ICU delirium A. fib RVR we will request EKG He was given potassium, mag above 2 Leukocytosis 29 Afebrile Adequate urine output since yesterday We will do CT head today once he is more calm Titrate off Precedex he was requiring 1.2 currently at this point he is on 0.5 I have decreased the dose of phenobarbital 130 mg IV push every 3 hours as well Vitals/I&O/Wt Last Vital Signs Temp 98.9 F 12/10/21 12:00 Pulse 84 12/10/21 12:00 Resp 23 H 12/10/21 12:00 BP 110/69 12/10/21 12:00 Pulse Ox 94 12/10/21 12:00 O2 Del Method 12/10/21 12:00 O2 Flow Rate 5 12/10/21 12:00 FiO2 35 12/10/21 10:11 12/09/21 12/10/21 12/10/21 22:59 06:59 14:59 Intake Total 1952.675 / 3200.730 2844.417 / 6045.147 227.229 / 227.229 Output Total 585 / 793 985 / 1778 Balance 1367.675 / 2407.730 1859.417 / 4267.147 227.229 / 227.229 Weight last 48 hrs Weight 70.398 kg Physical Exam Narrative: Patient was extubated to nasal cannula Looks euvolemic Bilateral breath sounds with slight respiratory crackles at the bases Abdomen soft Chest tubes in place Mcnamara catheter with normal colored urine Abdomen soft Currently on 6 L nasal cannula Patient is not able to follow commands not able to track Moving all of his extremities Urinary Catheter Management: Mcnamara: Cath Placed During This Visit: yes Reason for Continuing Indwelling Catheter: Accurate Measurement of Urinary Output in Critically Ill Patients Urinary Catheter Date of Insertion: 12/06/21 Urinary Catheter Time of Insertion: 07:48 Data : 12/10/21 06:23 12/10/21 06:23 Micro: Microbiology 12/09/21 05:40 Gram Stain - Final Sputum - Endotracheal Tube Aspirate Sputum Culture - Preliminary Gram Negative Rods 12/09/21 18:48 Blood Culture - Preliminary Blood SPECIMEN COLLECTED 12/09/21 18:43 Blood Culture - Preliminary Blood SPECIMEN COLLECTED A&P Assessment and plan (1) SVT (supraventricular tachycardia): Status: Acute (2) Alcohol withdrawal: Status: Acute (3) Status post aorto-coronary artery bypass graft: Status: Acute (4) Syncope: Status: Acute (5) Dyspnea on exertion: Status: Acute (6) CAD (coronary artery disease): Status: Acute (7) Hypertension: Status: Acute Plan Alcohol withdrawal ICU related acute delirium Likely cause of delirium is prolonged intubation, ICU stay, alcohol withdrawal and sepsis related to ventilator associated pneumonia I have decreased the dose of phenobarbital 130 mg every 3 hours Max Dose in 1 day will be 15 mg/kg We do not have IV Ativan Continue high-dose thiamine B12 and ammonia level normal Will repeat UA Chest x-ray showing infiltrate improvement Most likely consistent with volume overloaded state he was given adequate Lasix with potassium supplement Afebrile I do not suspect meningitis or encephalitis Check RPR and HIV panel Respiratory failure requiring mechanical ventilation postop Patient extubated successfully to 6 L nasal cannula on 12/10 Once he is more awake and alert can switch his IV medications to p.o. PT/OT and speech therapy Severe autonomic dysfunction SVT noticed in last 36 hours today it looks more like A. fib, will repeat EKG I will give him small dose of Cardizem 5 mg IV push Continue metoprolol CABG x2 Chest tubes in place Art line has been removed Central line removed as well Management as per cardiothoracic and cardiology Aspirin has been started Hemoglobin has remained stable In case of diagnosis of A. fib today I will start him on therapeutic Lovenox Nutritional status: We are holding his tube feeding because of an episode of emesis BPH: Continue tamsulosin Sepsis related to ventilator associated pneumonia Leukocytosis trending down Afebrile Lactic acid normal Continue broad-spectrum antibiotics for now with double antipseudomonal coverage Attestations Medical Necessity Statement*: As per cardiothoracic Time Spent in Patient Care: 30 Critical Care Time: 30 Coding Level of Care Code Acute Property Field Adjuster for g Fwd Diagnoses SVT (supraventricular tachycardia) I47.1 Alcohol withdrawal F10.939 Status post aorto-coronary artery bypass graft Z95.1 Syncope R55 Dyspnea on exertion R06.00 CAD (coronary artery disease) I25.10 Hypertension I10
[2021-12-10] MEDS: dilTIAZem 5 mg/mL SDV 5 mL IVP (14:50)
[2021-12-10 15:51] LABS: Anion Gap 13.9 (5-19); Blood Urea Nitrogen 12 mg/dL (8-23); Calcium 7.8 mg/dL (8.5-10.5); Carbon Dioxide 25 mmol/L (22-29); Chloride 113 mmol/L (98-107); Glucose 115 mg/dL (65-115); Osmolality Calculated 307 mOsm/kg (285-295); Potassium 3.9 mmol/L (3.5-5.1); Sodium 148 mmol/L (136-145)
[2021-12-10 16:03] LABS: HIV 1 & 2 Antibody Non-Reactive (Non-Reactiv); HIV 1 & 2 Antigen Non-Reactive (Non-Reactiv)
[2021-12-10] MEDS: metoprolol tartrate 1 mg/1 mL SDV 5 mL 5 MG IVP ×2 (16:55→23:31)
[2021-12-10 18:35] LABS: Urine Appearance Clear (CLEAR); Urine Color Yellow (Yellow); pH Urine 5 (5-7)
[2021-12-10 18:36] LABS: Add Urine Microscopic? YES; Bilirubin Urine Neg (Negative); Blood Urine 3+ (Negative); Glucose Urine UA Norm (Normal); Ketones Urine 1+ (Negative); Leukocyte Esterase Urine Negative (Negative); Nitrate Urine Negative (Negative); Protein Urine Neg (Negative); Urobilinogen Urine Norm (Negative)
[2021-12-10 18:37] LABS: Add Urine Culture? No; Bacteria Urine TRACE /hpf; Mucus Urine 1+ /hpf; RBC Urine 0-4 /hpf (0-2); Squamous Epithelial Cell Urine 0-4 /hpf (0-5); WBC Urine 0-4 /hpf (0-5)
--- NOTE | 2021-12-10 19:11 | PC.NURSE ---
wasted 135 ml of fentanyl with Joana Alva RN.
--- NOTE | 2021-12-10 19:12 | PC.NURSE ---
bedside report given to Oziel MEZA
--- NOTE | 2021-12-10 19:14 | PC.NURSE ---
parid sandra with primo
[2021-12-10] MEDS: PHENobarbital 130 mg/mL SDV 1 mL IV (20:24)
--- NOTE | 2021-12-10 20:30 | PC.NURSE ---
Patient having increased agitation, CIWA score documented. Reflexes intact, patient not responding to commands at this time.
--- NOTE | 2021-12-10 21:42 | PC.NURSE ---
Continues to have restless movement of all extremities, sweating, not responding to commands but is responding to voice. Will administer morphine.
--- NOTE | 2021-12-10 21:46 | PC.NURSE ---
Patient currently sideways in bed, legs hanging off side of bed, will reposition.
[2021-12-10] MEDS: dexmedeTOMIDine 0.9 % NaCL 400 MCG/100 ML PREMIX 8.65 MCG IV (22:04)
--- NOTE | 2021-12-10 22:48 | PC.NURSE ---
Repositioned patient, patient immediately proceeds to move legs to edge of bed and move upper body to opposite side of bed. Patient not currently following commands.
--- NOTE | 2021-12-10 23:06 | PC.NURSE ---
Patient has converted to A-Flutter, Dr. Saez notified. Also notified of inability to take PO meds due to not following commands. Will give IV metoprolol x1 per dr Saez
--- NOTE | 2021-12-10 23:10 | PC.NURSE ---
Patient is, again, sideways on bed. Will assist patient in repositioning.
[2021-12-11] VITALS (50 sets, daily range): BP systolic 89–141; BP diastolic 45–95; PULSE 68–143; RESP 9–36; TEMP 36.8–38.1; O2SAT 88–98
[2021-12-11] MEDS: PHENobarbital 130 mg/mL SDV 1 mL IV ×2 (00:40→04:41)
--- NOTE | 2021-12-11 00:46 | PC.NURSE ---
Despite restraints being in place, patient continues to shift in bed until he is perpendicular to the bed. Assisted patient with straightening up. Patient continues to not follow commands. Following repositioning, patient swung his legs over the edge of the bed again.
--- NOTE | 2021-12-11 01:23 | PC.PHAR ---
Vancomycin Trough 9.0. increased Vancomycin from 1 g to 1250mg q12h
[2021-12-11] MEDS: acetylcysteine 200 mg/mL SDV 4 mL INHALATION ×6 (03:30→23:14)
[2021-12-11] MEDS: ipratropium-albuterol 3 mL Neb INHALATION ×5 (03:30→20:35)
[2021-12-11] MEDS: dexmedeTOMIDine 0.9 % NaCL 400 MCG/100 ML PREMIX 10.38 MCG IV (03:33)
[2021-12-11] MEDS: cefepime 1,000 MG in sodium chloride 0.9% (plus) 50 ML 100 MG IV ×2 (04:40→17:41)
[2021-12-11] MEDS: piperacillin-tazobactam 3.375 GM in sodium chloride 0.9% (plus) 50 ML IV ×3 (05:40→22:15)
[2021-12-11 05:49] LABS: Basophils # 0.1 10^3/uL (0.0-0.1); Basophils % 0.4 %; Eosinophils # 0.1 10^3/uL (0.0-0.8); Eosinophils % 0.6 %; Hematocrit 31.9 % (42.0-52.0); Hemoglobin 10.4 g/dL (11.7-16.6); Lymphocytes % 15.1 %; Mean Corpuscular HGB Conc 32.6 g/dL (30.0-36.0); Mean Corpuscular Hemoglobin 34.9 pg (28.0-34.0); Mean Platelet Volume 10.6 fL (7.4-10.4); Monocytes # 1.3 10^3/uL (0.2-0.9); Monocytes % 10.1 %; Neutrophils # 9.63 10^3/uL (1.8-7.7); Neutrophils % 73.2 %; Nucleated Red Blood Cells % 0 %; Platelet Count 157 10^3/cmm (130-400); Red Blood Count 2.98 10^6/uL (4.1-5.3); Red Cell Distribution Width 13.6 % (12.1-15.1); White Blood Count 13.2 10^3/uL (4.0-10.0)
--- NOTE | 2021-12-11 06:00 | XRR_ITS ---
PROCEDURE INFORMATION: Exam: XR Chest Exam date and time: 12/11/2021 7:53 AM Age: 76 years old Clinical indication: Dyspnea; Prior surgery; Surgery date: 3-7 days post-operative; Additional info: Pod #5 status post cabg/alcohol withdrawal TECHNIQUE: Imaging protocol: Radiologic exam of the chest. Views: 1 view. COMPARISON: CR (CHEST, ) 12/10/2021 7:40 AM FINDINGS: Tubes, catheters and devices: Left pleural drain appears to be in place. Lungs: Interval development of interstitial edema. Patchy opacities in the right lung. Pleural spaces: Unremarkable. No pleural effusion. No pneumothorax. Heart/Mediastinum: Changes of CABG. Bones/joints: Unremarkable. XR/XR chest 1V portable [id number] IMPRESSION: Interval development of interstitial edema with patchy opacities in the right lung, which may reflect atelectasis versus aspiration or pneumonia.
[2021-12-11 06:12] LABS: Alanine Aminotransferase 30 U/L (0-41); Albumin Level 2.9 g/dL (3.5-5.2); Alkaline Phosphatase 75 U/L (40-130); Anion Gap 14.6 (5-19); Aspartate Amino Transferase 71 U/L (0-40); Blood Urea Nitrogen 11 mg/dL (8-23); Calcium 7.7 mg/dL (8.5-10.5); Carbon Dioxide 24 mmol/L (22-29); Chloride 114 mmol/L (98-107); Globulin 1.8 g/dL (1.3-4.6); Glucose 109 mg/dL (65-115); Osmolality Calculated 308 mOsm/kg (285-295); Potassium 3.6 mmol/L (3.5-5.1); Sodium 149 mmol/L (136-145); Total Bilirubin 1.5 mg/dL (0.15-1.2); Total Protein 4.7 g/dL (6.6-8.7)
[2021-12-11 06:21] LABS: Magnesium 2.1 mg/dL (1.7-2.3)
[2021-12-11 06:35] LABS: C Reactive Protein 286.2 mg/L (0.0-4.9)
[2021-12-11 06:45] LABS: D Dimer 3.39 ug/mIFEU (0-0.59)
--- NOTE | 2021-12-11 06:55 | PC.NURSE ---
Bedside report completed with Kayleigh Larsen RN.
[2021-12-11 08:13] LABS: Glucose Point of Care 116 mg/dL (70-110)
[2021-12-11] MEDS: lidocaine 1% 5 ML in potassium chloride premix 100 ML 25 ML IV (08:18)
[2021-12-11] MEDS: enoxaparin 80 mg/0.8 mL Syringe 70 MG SUBCUT ×2 (08:31→17:58)
[2021-12-11] MEDS: FUROsemide 10 mg/mL SDV 2mL 20 MG IVP (08:35)
--- NOTE | 2021-12-11 09:11 | PC.OT ---
OT reviewed patient chart again today. He continues to be sedated and unable to follow commands meaningfully. Will attempt OT evaluation when appropriate. OT will continue to review chart to determine. Adonay Moses, OTR/L
--- NOTE | 2021-12-11 09:30 | PC.NURSE ---
Dr Escalante, here pulled chest tubes and pacer wires. Lies change provided. Pt does not respond to verbal or painful stimuli. Pt does not blink to eyes threat. Pt does move all extremities equally. Pt's pupils are equally reactive.
--- NOTE | 2021-12-11 09:55 | PM.PN ---
Subjective Subjective: Postop day #5 status post CABG x2. Mr. Lopes was extubated yesterday without event and has done really well on nasal cannula. He continues to move extremities spontaneously and does track towards voice but does not follow commands. Pupils are 2 to 3 mm and reactive. He does have a conjugate gaze. I cannot find an obvious jose focal motor deficit. We elected not to perform CT scan yesterday as it was late in the day and we had recently extubated. Understanding that CT scan is scheduled for today. I have again conferred with Mr. Gutierrez's , Laury, and updated her on his current condition. I have also confirmed that he drinks it appears approximately at least a sixpack of beer per day and does utilize marijuana daily. He has been to Laury for the last 3-1/2 years and she reports that he utilize daily alcohol and marijuana prior to their marriage for an unknown period of time in the past. Vitals/I&O/Wt Last Vital Signs Temp 98.6 F 12/10/21 16:00 Pulse 120 H 12/11/21 08:14 Resp 18 12/11/21 08:00 BP 108/76 12/11/21 06:00 Pulse Ox 94 12/11/21 08:00 O2 Del Method 12/11/21 08:00 O2 Flow Rate 5 12/11/21 08:00 FiO2 35 12/10/21 10:11 12/10/21 12/11/21 12/11/21 22:59 06:59 14:59 Intake Total 362.278 / 839.507 633.331 / 1472.838 56.116 / 56.116 Output Total 2455 / 2455 934 / 3389 Balance -2092.722 / -1615.493 -300.669 / -1916.162 56.116 / 56.116 Weight last 48 hrs Weight 152 lb 8 oz Physical Exam Chest: OTHER: Wound VAC dressing was removed. Sternotomy incision is clean, dry, and intact. Chest wall is stable. Mediastinal and pleural drains were also removed and the sites are secured. New dressings were applied. Resp: OTHER: Clear bilaterally with perhaps some some slight crackles. Some increasing interstitial markings were noted on the right side on today's chest x-ray concerning for potential aspiration related to his emesis event prior to extubation approximately 2 days ago. White count has now bumped back up to 13,000 though his procalcitonin has decreased. Cardio: OTHER: He currently is in atrial fibrillation with intermittent RVR. He has been placed on Cardizem in addition to the amiodarone. GI: OTHER: Hypoactive bowel sounds though his abdomen is soft and not distended. Urinary Catheter Management: Mcnamara: Cath Placed During This Visit: yes Reason for Continuing Indwelling Catheter: Accurate Measurement of Urinary Output in Critically Ill Patients Urinary Catheter Date of Insertion: 12/06/21 Urinary Catheter Time of Insertion: 07:48 Data : 12/11/21 05:27 12/11/21 05:27 Micro: Microbiology 12/09/21 18:48 Blood Culture - Preliminary Blood NEGATIVE TO DATE 12/09/21 18:43 Blood Culture - Preliminary Blood NEGATIVE TO DATE 12/09/21 13:10 MRSA Culture - Final Nose 12/09/21 05:40 Gram Stain - Final Sputum - Endotracheal Tube Aspirate Sputum Culture - Preliminary Gram Negative Rods A&P Assessment and plan (1) Status post aorto-coronary artery bypass graft: Postop day #5. Postop atrial fibrillation. Hypokalemia. Altered mental status. Plan: Nurses report CT scan is scheduled for today Potassium replacement. Up in chair if possible. I will increase beta-cristiano. After CT scan, if no evidence for embolic or major ischemic area or hemorrhage, I would recommend heparin prophylaxis. Greatly appreciate the continued efforts and expertise of Dr. Varela and the hospitalist service. Status: Acute Attestations Medical Necessity Statement*: Postop day #5 status post CABG with postop A. fib, and altered mental status Coding Level of Care Code Acute Mold Stamper And Repairer for Chg Fwd Diagnoses Status post aorto-coronary artery bypass graft Z95.1
--- NOTE | 2021-12-11 10:20 | PC.NURSE ---
Pt heart rhythm was a Flutter, entered into SVT. Cardizem gtt increased to 15mg/hr. Pt converted to sinus rhythm within 10 minutes.
--- NOTE | 2021-12-11 12:30 | PC.NURSE ---
Pt's heart rate increased to [address] Varela call and Heart rate report. Metoprolol 5mg IVP ordered and admin. Pt's heart rate decreased. Rhythm converted back to sinus rhythm. BP became a little soft decreased Cardizem gtt to 5mg/hr from 10mg/hr. Piter continue to monitor.
[2021-12-11] MEDS: metoprolol tartrate 1 mg/1 mL SDV 5 mL 5 MG IVP ×2 (12:36→21:59)
[2021-12-11] MEDS: vancomycin 1,250 MG/250 ML PIGGYBACK 250 MG IV ×2 (12:37→23:28)
[2021-12-11] MEDS: potassium chloride premix 100 ML 25 MEQ IV (12:38)
[2021-12-11] MEDS: chlorhexidine gluconate 0.12% Btl 473 mL 15 ML MUCOUS MEM ×2 (12:39→18:01)
[2021-12-11] MEDS: mupirocin oint 22 gm 1 APPLIC NASAL ×2 (12:39→18:01)
--- NOTE | 2021-12-11 14:30 | PC.NURSE ---
PT worked with pt, sat pt on side of bed. No purposeful participation from patient.
--- NOTE | 2021-12-11 15:58 | PM.PN ---
Subjective Subjective: Patient was extubated yesterday to nasal cannula Since then he has been able to maintain his oxygen Was requiring amiodarone and Cardizem for A. 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 CT head is done without contrast would recommend CT chest rule out PE he has been getting therapeutic Lovenox since yesterday Dehydration with sodium 149 he has not been getting tube feeding nor he is able to eat because of his confusion, will request speech therapy Magnesium today is 2, potassium 3.6 Procalcitonin 2.2 Afebrile Amiodarone will be turned off around 1700 Cardizem drip has been turned off He received metoprolol 5 mg IV push that converted him to sinus rhythm today Chest x-ray showing interval development of interstitial edema with patchy opacities right lung concerning for aspiration He has been getting broad-spectrum antibiotics for last few days Vitals/I&O/Wt Last Vital Signs Temp 98.4 F 12/11/21 08:00 Pulse 71 12/11/21 13:30 Resp 20 H 12/11/21 13:30 BP 89/45 12/11/21 13:30 Pulse Ox 92 12/11/21 13:30 O2 Del Method 12/11/21 13:30 O2 Flow Rate 5 12/11/21 13:30 FiO2 35 12/10/21 10:11 12/11/21 12/11/21 12/11/21 06:59 14:59 22:59 Intake Total 683.331 / 1522.838 453.553 / 453.553 9.333 / 462.886 Output Total 934 / 3389 1750 / 1750 Balance -250.669 / -1866.162 -1296.447 / -1296.447 9.333 / -1287.114 Weight last 48 hrs Weight 69.173 kg Physical Exam Narrative: Clinically patient looks dehydrated Bilateral breath sounds with crackles and rhonchi Currently on 5 L Active delirium No focal deficit Pupils are reactive to light Able to move his extremities Sitting in a chair Abdomen is soft No signs of swelling of his legs Chest tube drainage 200 Urinary Catheter Management: Mcnamara: Cath Placed During This Visit: yes Reason for Continuing Indwelling Catheter: Accurate Measurement of Urinary Output in Critically Ill Patients Urinary Catheter Date of Insertion: 12/06/21 Urinary Catheter Time of Insertion: 07:48 Data : 12/11/21 05:27 12/11/21 05:27 Micro: Microbiology 12/09/21 05:40 Gram Stain - Final Sputum - Endotracheal Tube Aspirate Sputum Culture - Final Klebsiella pneumoniae 12/09/21 18:48 Blood Culture - Preliminary Blood NEGATIVE TO DATE 12/09/21 18:43 Blood Culture - Preliminary Blood NEGATIVE TO DATE 12/09/21 13:10 MRSA Culture - Final Nose A&P Assessment and plan (1) Flutter-fibrillation: Status: Acute (2) Sepsis: Status: Acute (3) Ventilator associated pneumonia: Status: Acute (4) Alcohol withdrawal: Status: Acute (5) Status post aorto-coronary artery bypass graft: Status: Acute (6) Syncope: Status: Acute (7) Dyspnea on exertion: Status: Acute Plan Hospital course Status post CABG x2 postop day [address] Escalante consulted us for alcohol withdrawal management post CABG, patient was extubated 12/10 to nasal cannula, he has been on 4 to 5 L since then, ICU delirium, patient developed sepsis related to ventilator associated pneumonia he has been getting broad-spectrum antibiotics including double antipseudomonal, sputum culture showing gram-negative rods, he has remained afebrile, went into A. fib RVR yesterday and required amiodarone drip along Cardizem he was also put on therapeutic Lovenox, since extubation we were not able to do CT head without contrast because of his active agitation, patient experienced vomiting with tube feeding, x-rays concerning for aspiration pneumonia as well on top of fluid overloaded pulm edema He has been getting phenobarbital quite frequently, most of the time patient responded within 48 hours, delirium beyond 48 hours will necessitate further work-up for delirium Alcohol abuse, currently suffering from delirium and withdrawal Has had been getting IV phenobarbital Wean off Precedex Monitor QTC interval Continue high-dose thiamine, I would give him 3 more doses to treat him as encephalopathy related to alcohol/Warnicke I have also requested RPR and HIV panel B12 upper normal range, ammonia is not high ICU delirium We are trying to wean off Precedex and avoiding frequent use of sedatives, patient to work with speech therapy and physical therapy on daily basis which will hopefully help him in his recovery Dehydration Patient has not been able to eat since his surgery, he vomited once with his tube feeds and since then they have been turned off Sodium is high, chest x-ray shows pulm edema with signs concerning for aspiration pneumonia Polyuric more than 3 L urine output avoid high-dose diuretics Potassium to be repleted A. fib related to sepsis Patient has converted to sinus rhythm today with IV metoprolol which was given while he was on Cardizem and amiodarone drip We will switch his amiodarone to p.o. regimen today He is getting therapeutic Lovenox, D-dimer is high Patient will need Eliquis at the time of discharge CABG x2, Management as per cardiothoracic I have added aspirin, Hemoglobin has been stable Chest tube management as per cardiothoracic Patient is malnourished, dehydrated, if he is not able to eat in next 24 hours he might need TPN versus PPN Sepsis related to ventilator associated pneumonia Leukocytosis has remained stable around 13,000 No recurrent febrile episodes Currently on double antipseudomonal coverage along vancomycin, would continue for now Sputum culture showing gram-negative rods Patient remains full code Start diet after speech therapy today DVT prophylaxis sufficed with therapeutic Lovenox Attestations Medical Necessity Statement*: Continue ICU management Time Spent in Patient Care: 30 Coding Level of Care Code Acute Television Reporter for Raulg Fwd Diagnoses Flutter-fibrillation Sepsis A41.9 Ventilator associated pneumonia J95.851 Alcohol withdrawal F10.939 Status post aorto-coronary artery bypass graft Z95.1 Syncope R55 Dyspnea on exertion R06.00
--- NOTE | 2021-12-11 16:23 | USR_ITS ---
PROCEDURE INFORMATION: Exam: US Duplex Lower Extremity Veins, Bilateral Exam date and time: 12/11/2021 5:16 PM Age: 76 years old Clinical indication: Edema, localized; Lower extremity, left; Prior surgery; Surgery date: 3-7 days post-operative; Patient HX: Post cabg AMS; Additional info: Afib swelling legs TECHNIQUE: Imaging protocol: Real-time Duplex ultrasound of the bilateral extremities with 2-D hernandez scale, color Doppler flow and spectral waveform analysis with image documentation. Complete exam focused on the bilateral lower extremity veins. COMPARISON: No relevant prior studies available. FINDINGS: Right deep veins: Unremarkable. The common femoral, femoral, proximal profunda femoral and popliteal veins are patent without thrombus. Normal Doppler waveforms. Normal compressibility and/or augmentation response. Right superficial veins: Saphenofemoral junction is patent without thrombus. Left deep veins: Unremarkable. The common femoral, femoral, proximal profunda femoral and popliteal veins are patent without thrombus. Normal Doppler waveforms. Normal compressibility and/or augmentation response. Left superficial veins: Saphenofemoral junction is patent without thrombus. Soft tissues: Unremarkable. US/[place] [id number] IMPRESSION: No evidence of deep vein thrombosis.
--- NOTE | 2021-12-11 16:27 | PC.NURSE ---
Have updated son Bernardo Gutierrez Jr and Laury have called numerous times today for updates. Spoke about his heart rate/rhythm, Medication changes and new ones, plan of care, waiting for pt to be able to lie still for ordered head CT, and withdraw from alcohol
--- NOTE | 2021-12-11 18:00 | PC.NURSE ---
and other family ,at bedside, stated pt preferred neck pillows to pillows. Provided t with rolled up towels for neck pillow. Pt nodded head YES to family asking if that felt better.
--- NOTE | 2021-12-11 18:13 | PC.SLP ---
Discussed with the patient's nurse, the patient is not alert enough and able to follow directives participate in a CONFERENCE SPECIALIST evaluation. CONFERENCE SPECIALIST will check back on the patient tomorrow.
--- NOTE | 2021-12-11 19:00 | PC.NURSE ---
Bedside report completed with Kayleigh Larsen RN and SUSANA Guerrero
--- NOTE | 2021-12-11 19:23 | PC.NURSE ---
Shift Note: Pt rested in bed throughout shift. e does not verbalize. he does not respond to painful nailbed squeeze. He does move all extremities, with equal strength. His pupils are equally reactive. Full occular range noted. Pt restless, not agitated, rolling side to side and throwing legs around throughout shift. Unable to obtain CT this shift due to this. His CIWA scores remained below 10, he did not need phenobarbital this shift. Precedex weaned off this shift. Amiodarone IV remains infusing until Pt can take oral medication. He received morphine twice for pain today, he became more restless and his face slightly frowning. he started the shift in A flutter, after Cardizem increased to 15mg/hr and chest tubes removed pt converted back to sinus rhythm, until around 1230 when his heart rhythm back to SVT, 5mg Metoprolol IVP admin, he converted back to sinus rhythm within 10 minutes. Cardizem weaned off this afternoon. Pt tolerating well. Lasix admin this am. His urine output was 2100ml. No BM this shift. Family very attentive , calling frequently for updates and here this evening. Pt nodded yes once to question about neck roll. Frequent safety and comfort rounds continue. Orders and/or nursing care completed as indicated. Patient monitored for response to intervention and treatment(s). Education provided includes Plan of care including withdraw, CT ordered, and chest tube removal. Amiodarone, Cardizem, Morphine, and Precedex. Patient's representatives verbalized understanding to ongoing plan of care, progress, and medications. Will continue to monitor.
[2021-12-11] MEDS: acetaminophen 650 mg Supp PR (20:42)
--- NOTE | 2021-12-11 21:29 | PC.NURSE ---
Pt followed direction when asked to look at nurse but is still unable to verbalize needs. pt appears restless. HR 104, O2 91%, RR 25, BP 126/89.
[2021-12-12] VITALS (54 sets, daily range): BP systolic 94–158; BP diastolic 62–109; PULSE 75–147; RESP 12–38; TEMP 36–36.8; O2SAT 87–100
--- NOTE | 2021-12-12 00:43 | PC.NURSE ---
IV insertion attempted, but catheter encountered valve.
[2021-12-12] MEDS: acetylcysteine 200 mg/mL SDV 4 mL INHALATION ×5 (03:09→21:15)
[2021-12-12] MEDS: ipratropium-albuterol 3 mL Neb INHALATION ×5 (03:09→21:15)
[2021-12-12] MEDS: cefepime 1,000 MG in sodium chloride 0.9% (plus) 50 ML 100 MG IV ×2 (04:14→16:32)
[2021-12-12 04:58] LABS: D Dimer 2.85 ug/mIFEU (0-0.59)
[2021-12-12 05:04] LABS: Alanine Aminotransferase 48 U/L (0-41); Albumin Level 3.2 g/dL (3.5-5.2); Alkaline Phosphatase 92 U/L (40-130); Anion Gap 15.8 (5-19); Aspartate Amino Transferase 110 U/L (0-40); Blood Urea Nitrogen 12 mg/dL (8-23); C Reactive Protein 262.6 mg/L (0.0-4.9); Calcium 8.2 mg/dL (8.5-10.5); Carbon Dioxide 27 mmol/L (22-29); Chloride 111 mmol/L (98-107); Globulin 2.5 g/dL (1.3-4.6); Glucose 113 mg/dL (65-115); Magnesium 2.4 mg/dL (1.7-2.3); Osmolality Calculated 311 mOsm/kg (285-295); Phosphorus 2.4 mg/dL (2.5-4.5); Potassium 3.8 mmol/L (3.5-5.1); Sodium 150 mmol/L (136-145); Total Bilirubin 1.7 mg/dL (0.15-1.2); Total Protein 5.7 g/dL (6.6-8.7)
[2021-12-12 05:05] LABS: Procalcitonin 1.12 ng/mL (0-0.5)
[2021-12-12 05:16] LABS: Glucose Point of Care 122 mg/dL (70-110)
[2021-12-12] MEDS: enoxaparin 80 mg/0.8 mL Syringe 70 MG SUBCUT ×2 (05:24→17:53)
[2021-12-12] MEDS: piperacillin-tazobactam 3.375 GM in sodium chloride 0.9% (plus) 50 ML IV ×2 (05:24→14:48)
--- NOTE | 2021-12-12 06:38 | PM.PN ---
Subjective Subjective: Postop day #6 status post CABG x2. Hemodynamically stable. Nurses report that he did respond to verbal stimulus and did look at the nurse purposefully yesterday. This morning, he does open his eyes to his name and does look toward me but otherwise is moving spontaneously without purpose. I do note on today's lab data sodium is increased to 150. He will need increased free water and we will need to initiate some type of enteral feedings. CBC was now reported out as of my rounds this morning. Vitals/I&O/Wt Last Vital Signs Temp 98.1 F 12/12/21 04:23 Pulse 84 12/12/21 06:00 Resp 16 12/12/21 06:00 BP 143/89 12/12/21 06:00 Pulse Ox 98 12/12/21 06:00 O2 Del Method 12/12/21 06:00 O2 Flow Rate 5 12/12/21 06:00 FiO2 5 12/11/21 16:00 12/11/21 12/11/21 12/12/21 14:59 22:59 06:59 Intake Total 453.553 / 453.553 495.406 / 948.959 350 / 1298.959 Output Total 1750 / 1750 600 / 2350 650 / 3000 Balance -1296.447 / -1296.447 -104.594 / -1401.041 -300 / -1701.041 Weight last 48 hrs Weight 152 lb 8 oz Physical Exam Chest: OTHER: Chest remains stable. Dressings are in place. Resp: COMMON NORMALS: clear to auscultation bilaterally AUSCULTATION: clear to auscultation bilaterally Cardio: OTHER: Currently maintaining sinus rhythm. No murmur or rub. Extremity: COMMON NORMALS: no clubbing, cyanosis or edema Urinary Catheter Management: Mcnamara: Cath Placed During This Visit: yes Reason for Continuing Indwelling Catheter: Accurate Measurement of Urinary Output in Critically Ill Patients Urinary Catheter Date of Insertion: 12/06/21 Urinary Catheter Time of Insertion: 07:48 Data : 12/11/21 05:27 12/12/21 03:58 Micro: Microbiology 12/09/21 05:40 Gram Stain - Final Sputum - Endotracheal Tube Aspirate Sputum Culture - Final Klebsiella pneumoniae A&P Assessment and plan (1) Status post aorto-coronary artery bypass graft: Postop day #6. Continued altered mental status. Plan: We will need to initiate enteral feedings and increase free water due to continuing rising sodium Greatly appreciate expertise and efforts of our hospitalist colleagues. Status: Acute Attestations Medical Necessity Statement*: Status post CABG postop day #6 with continued altered mental status with mild improvement Coding Level of Care Code Acute Cooper Apprentice for Chg Fwd Diagnoses Status post aorto-coronary artery bypass graft Z95.1
--- NOTE | 2021-12-12 06:39 | PC.NURSE ---
SHIFT NOTE: Pt had a persisting episode of HR greater than 130, A. flutter- received order for metoprolol IVP. HR returned to the mid 80s. Throughout the night pt had frequent loose liquid stools. Pt has been awake and restless throughout the night. Pulled out 3 IVs during shift. Currently pt has 1 IV running Amiodarone @ 0.5. Another IV was attempted by this RN, attempt was unsuccessful. Pt has no verbal response and is not oriented.
[2021-12-12] MEDS: PHENobarbital 130 mg/mL SDV 1 mL IV ×2 (07:35→10:32)
[2021-12-12] MEDS: metoprolol tartrate 1 mg/1 mL SDV 5 mL 5 MG IVP ×2 (09:28→16:08)
[2021-12-12] MEDS: vancomycin 1,250 MG/250 ML PIGGYBACK 250 MG IV (11:07)
--- NOTE | 2021-12-12 12:45 | PC.OT ---
OT EVALUATION ATTEMPTED THIS A.M. PATIENT MINIMALLY OPENS EYES; DOES NOT FOLLOW ANY TYPE OF DIRECTION. HR:132; NURSING REQUESTS HOLD THIS A.M. DUE TO THIS. WILL ATTEMPT AGAIN LATER IN P.M.
--- NOTE | 2021-12-12 13:09 | PC.CHAP ---
Pastoral Care Encounter/Spiritual Assessment Type of Contact [] Declined used car lot attendant visit [] Patient/Family/Request visit [] Outpatient visit [] Follow-up visit [] Physician referral [] Code/Alert [x] Routine visit [] Staff referral [] Actively dying [] Patient sleeping [] Family support [] [] Out of room [] Palliative care [] [] Receiving care in room [] Pre-surgical visit [] Trauma [] Long length of stay [x] ICU visit [] Other: Relational/Emotional Strength [] Patient feels connected with others/family/visitors/staff [] Distress [] Loneliness/isolation [] Abandonment Spirituality of Patient [] Person of Maty [] Attends Orthodox of their Maty [] Believes in Prayer [] Reads Bible or Congregational materials [] There are Spiritual issues to be addressed Revenue Agent Interventions [x] Prayer [] Active listening [] Non-anxious presence [] Spiritual/emotional support [] Crisis/trauma care [] Spiritual counseling [] Bereavement support [] Provided bereavement packet [] Provided Bible/devotional materials [] Provided toy/stuffed animal, coloring book to patient or family member [] Provided Communion [] Anointing/[place] [] Salvation [x] Completed spiritual assessment [] Other: Impact on Illness or Injury [] Angry [] Fearful [] Anxious [] Often cries [] Exhaustion [] Unable to work [] Unable to attend gnosticism [] Unable to walk/stand [] Unable to read [] Unable to drive [] Unable to eat/drink [] Unable to sleep [] Unable to be with family [] Patient intubated [] Other: Summary Time spent with patient
--- NOTE | 2021-12-12 14:02 | PC.NUTR ---
If medically appropriate to begin tube feeding, recommend Jevity 1.2 beginning at 15 mls/hr and increasing 10 mls Q8H as tolerated until a goal rate of 55 mls/hr is reached, with flushes of 120 mls Q4H. Details in RD assessment.
--- NOTE | 2021-12-12 14:15 | ECG_ITS ---
[facility] Test Date: 2021-12-12 Pat Name: Bernardo Gutierrez Department: Room: ICU11 Gender: Male Semiautomatic Stitcher Operator: : [id number] Requested By: Luca Adams Order Number: [id number] Marques MD: Adam Francis M.D. Measurements Intervals [place] Rate: 129 P: [place]: QRS: 77 QRSD: 138 T: 0 QT: 333 QTc: 488 Interpretive Statements ATRIAL FIBRILLATION WITH RAPID VENTRICULAR RESPONSE RIGHT BUNDLE BRANCH BLOCK [120+ ms QRS DURATION, UPRIGHT V1, 40+ ms S IN I/aVL/V4/V5/V6] ST DEPRESSION, CONSIDER SUBENDOCARDIAL INJURY [0.1+ mV ST DEPRESSION] Compared to ECG 12/10/2021 14:46:39 ST (T wave) deviation now present Sinus rhythm no longer present Electronically Signed On 12-13-2021 16:35:48 CDT by Adam Francis M.D. [id number]
[2021-12-12 15:18] LABS: RPR w(Moniotor) w/REFL Titer NON-REACTIVE (NON-REACTIVE)
--- NOTE | 2021-12-12 17:03 | PC.SLP ---
SERVICE ASSISTANT still unable to evaluate swallowing due to decreased alertness and ability to attend to tasks and follow directives.
--- NOTE | 2021-12-12 19:04 | P.PN_ITS ---
Subjective Subjective: He is confused. Unable to provide review of systems or follow directions. He appears to be awake, looking around, not making eye contact. Shifting around in bed. Vitals/I&O/Wt Last Vital Signs Temp 98.3 F 12/12/21 18:00 Pulse 77 12/12/21 18:00 Resp 33 H 12/12/21 18:00 BP 135/81 12/12/21 18:00 Pulse Ox 92 12/12/21 18:00 O2 Del Method 12/12/21 18:00 O2 Flow Rate 3 12/12/21 18:00 FiO2 5 12/11/21 16:00 12/12/21 12/12/21 12/12/21 06:59 14:59 22:59 Intake Total 350 / 1298.959 487.597 / 487.597 50 / 537.597 Output Total 650 / 3000 850 / 850 Balance -300 / -1701.041 487.597 / 487.597 -800 / -312.403 Weight last 48 hrs Weight 63.049 kg Weight 69.173 kg Physical Exam Const: GENERAL APPEARANCE: not cooperative ORIENTATION/CONSCIOUSNESS: Yes awake and Yes confused HENMT: COMMON NORMALS: oropharynx normal Neck/C-Spine: COMMON NORMALS: no JVD Chest: OTHER: CABG wound dressing. No bleeding. Does not appear in pain. Resp: COMMON NORMALS: normal respiratory effort and clear to auscultation bilaterally AUSCULTATION: clear to auscultation bilaterally Cardio: COMMON NORMALS: no JVD, S1 normal heart sound present, S2 normal heart sound present and No murmurs present (Cardio) RHYTHM: abnormal rhythm irregularly irregular HEART SOUNDS: S1 normal heart sound present and S2 normal heart sound present GI: COMMON NORMALS: Normal to inspection, nondistended, normoactive bowel sounds present, Soft to palpation and non-tender PALPATION: Yes Soft to palpation Extremity: COMMON NORMALS: no joint enlargement and no pedal edema Neuro: COMMON NORMALS: moves all extremities OTHER: No rigidity or clonus Skin: COMMON NORMALS: no rashes or lesions noted GENERAL SKIN EXAM: no rashes or lesions noted Urinary Catheter Management: Mcnamara: Cath Placed During This Visit: yes Reason for Continuing Indwelling Catheter: Accurate Measurement of Urinary Output in Critically Ill Patients Urinary Catheter Date of Insertion: 12/06/21 Urinary Catheter Time of Insertion: 07:48 Data : 12/11/21 05:27 12/12/21 03:58 A&P Assessment and plan (1) Acute encephalopathy: Suspected combination from alcohol withdrawal, possibly also inability to take his oral medications including citalopram. Unknown if possible other causes. Additionally pneumonia. ICU delirium. Possibility of contribution of postoperative encephalopathy. Unable to tolerate oral intake. Appears may be starting to get more dehydrated, increase in bicarb to 27. Increase in sodium to 150, although does have chloride increase as well with NS based infusions. Pending CT of the head. Cardiothoracic surgery note reviewed. He is currently awake but confused, turning about aimlessly in bed. Occasionally grabbing onto things. Not likely to maintain NGT in place. Initiate low rate infusion D5W. Follow-up sodium level. Requesting PICC line due to poor peripheral access and multiple lost IVs. Need for multiple infusions. Appreciated recommendation regarding enteral feeding, feeding tube which is thought to be able to be protected better with abdominal binder. I have not been able to reach his spouse to discuss with her today. We will try again tomorrow, and if agreeable request surgical consultation. Status: Acute (2) Flutter-fibrillation: Continue amiodarone infusion until able to tolerate enteral formulation. As needed metoprolol push. Lovenox anticoagulation Status: Acute (3) Ventilator associated pneumonia: VAP. Concern also for aspiration pneumonia. Continue empiric antibiotic coverage. Oxygen set forth, wean down as tolerating. Ampicillin resistant Klebsiella in sputum culture. Status: Acute (4) Sepsis: Status: Acute (5) Alcohol withdrawal: Continue supportive care, phenobarbital. He is weaned off Precedex. Status: Acute (6) Status post aorto-coronary artery bypass graft: Continue cardiac medications. Status: Acute (7) Syncope: Status: Acute (8) Dyspnea on exertion: Status: Acute Attestations Medical Necessity Statement*: Continue admission for assessment management a fter CABG, persistent encephalopathy. Coding Level of Care Code Acute District Captain for [facility] Diagnoses Acute encephalopathy G93.40 Flutter-fibrillation Ventilator associated pneumonia J95.851 Sepsis A41.9 Alcohol withdrawal F10.939 Status post aorto-coronary artery bypass graft Z95.1 Syncope R55 Dyspnea on exertion R06.00
[2021-12-12] MEDS: dextrose 5% 1,000 ML 30 ML IV (19:28)
--- NOTE | 2021-12-12 19:31 | PC.NURSE ---
SHIFT SUMMARY: PT HAS HAD AN UNEVENTFUL SHIFT. PT IS STILL DISORIENTATED. PT DOES NOT APPEAR TO BE IN ANY PAIN. THIS NURSE HAS HAD TO GIVE IV METOPROLOL PER PRN ORDER TWICE TODAY FOR HEART RATE GREATER THAN 120. PT CONVERTED BACK TO SINUS RHYTHM IN THE 70S BOTH TIMES. OTHER VITALS HAVE REMAINED WNL. PT HAS HAD ADEQUATE OUTPUT. PT IS CURRENTLY RESTING IN BED AND DOES NOT APPEAR TO BE UNCOMFORTABLE. WILL CONTINUE TO MONITOR.
[2021-12-12] MEDS: piperacillin-tazobactam 3.375 GM in dextrose 5% (plus) 50 ML IV (23:32)
[2021-12-12 23:56] LABS: Sodium 147 mmol/L (136-145); Vancomycin Trough 8.7 ug/mL (10-15)
[2021-12-13] VITALS (35 sets, daily range): BP systolic 87–185; BP diastolic 47–104; PULSE 61–146; RESP 15–33; TEMP 36.2–37.1; O2SAT 90–99; BMI 18.7
[2021-12-13] MEDS: metoprolol tartrate 1 mg/1 mL SDV 5 mL 5 MG IVP ×2 (01:54→06:19)
[2021-12-13 04:11] LABS: Basophils # 0.1 10^3/uL (0.0-0.1); Basophils % 0.4 %; Eosinophils # 0.4 10^3/uL (0.0-0.8); Eosinophils % 2.5 %; Hematocrit 34.2 % (42.0-52.0); Hemoglobin 11.3 g/dL (11.7-16.6); Lymphocytes # 2.2 10^3/uL (0.8-4.8); Lymphocytes % 15.2 %; Mean Corpuscular Hemoglobin 34.9 pg (28.0-34.0); Mean Corpuscular Volume 105.6 fl (80-94); Mean Platelet Volume 10.5 fL (7.4-10.4); Monocytes # 1.3 10^3/uL (0.2-0.9); Neutrophils # 10.52 10^3/uL (1.8-7.7); Neutrophils % 71.4 %; Nucleated Red Blood Cells % 0 %; Platelet Count 275 10^3/cmm (130-400); Red Blood Count 3.24 10^6/uL (4.1-5.3); Red Cell Distribution Width 13.4 % (12.1-15.1); White Blood Count 14.7 10^3/uL (4.0-10.0)
[2021-12-13 04:25] LABS: Alanine Aminotransferase 47 U/L (0-41); Albumin Level 2.8 g/dL (3.5-5.2); Alkaline Phosphatase 96 U/L (40-130); Anion Gap 13.1 (5-19); Aspartate Amino Transferase 81 U/L (0-40); Blood Urea Nitrogen 12 mg/dL (8-23); Carbon Dioxide 27 mmol/L (22-29); Chloride 109 mmol/L (98-107); Globulin 2.9 g/dL (1.3-4.6); Glucose 122 mg/dL (65-115); Osmolality Calculated 303 mOsm/kg (285-295); Potassium 3.1 mmol/L (3.5-5.1); Sodium 146 mmol/L (136-145); Total Bilirubin 1.7 mg/dL (0.15-1.2); Total Protein 5.7 g/dL (6.6-8.7)
[2021-12-13] MEDS: lidocaine 1% 5 ML in potassium chloride premix 100 ML 25 ML IV ×2 (05:45→13:01)
[2021-12-13] MEDS: piperacillin-tazobactam 3.375 GM in dextrose 5% (plus) 50 ML IV ×3 (05:52→22:11)
[2021-12-13] MEDS: enoxaparin 80 mg/0.8 mL Syringe 70 MG SUBCUT ×2 (05:53→20:09)
[2021-12-13 06:03] LABS: Magnesium 2.2 mg/dL (1.7-2.3); Phosphorus 1.6 mg/dL (2.5-4.5)
--- NOTE | 2021-12-13 06:21 | PM.PN ---
Subjective Subjective: Postop day #7 status post CABG. Still with altered mental status. Mr. Gutierrez opens his eyes to voice and appears to look in that direction but does not track. He does not follow commands. He is moving all extremities spontaneously. His sodium has decreased somewhat since the last 2 days though his potassium is also quite low at 3.1. We will give a total of 80 mEq throughout the day today and recheck his potassium level at 4 PM. Nursing service reports he is scheduled for a PICC line later today. Intermittent atrial fibrillation which does appear to respond reasonably well to Lopressor IV. Unfortunately, since he is not taking oral, we cannot give his metoprolol which I think would be of good effect. I do not think the Cardizem is really actually holding his heart rate while in A. fib. Vitals/I&O/Wt Last Vital Signs Temp 97.7 F 12/13/21 02:00 Pulse 146 H 12/13/21 04:00 Resp 28 H 12/13/21 04:00 BP 145/102 12/13/21 04:00 Pulse Ox 93 12/13/21 03:00 O2 Del Method 12/13/21 02:00 O2 Flow Rate 2 12/13/21 02:00 FiO2 5 12/11/21 16:00 12/12/21 12/12/21 12/13/21 14:59 22:59 06:59 Intake Total 487.597 / 487.597 50 / 537.597 686.244 / 1223.841 Output Total 850 / 850 800 / 1650 Balance 487.597 / 487.597 -800 / -312.403 -113.756 / -426.159 Weight last 48 hrs Weight 139 lb Physical Exam Chest: OTHER: Chest wall remained stable. Dressings are clean and dry. There will be changes daily with incisions painted with Betadine. He is clearly at increased risk for subsequent wound breakdown or sternal dehiscence related to his constant motion. Resp: OTHER: There are some basilar crackles and we do note some increasing opacities on the right side which may be related to potential aspiration from emesis episode several days ago. Cardio: OTHER: Irregular heart rate with tachycardia, currently in atrial fibrillation which resumed again around 2 AM this morning. GI: OTHER: He is now beginning to have some hypoactive bowel sounds. Abdomen remains soft and without obvious tenderness. Urinary Catheter Management: Mcnamara: Cath Placed During This Visit: yes Reason for Continuing Indwelling Catheter: Accurate Measurement of Urinary Output in Critically Ill Patients Urinary Catheter Date of Insertion: 12/06/21 Urinary Catheter Time of Insertion: 07:48 Data : 12/13/21 03:54 12/13/21 03:54 A&P Assessment and plan (1) Status post aorto-coronary artery bypass graft: 1 week postop CABG with continued altered mental status. Greatly appreciate all the efforts and attentions and expertise of Dr. Adams and our hospitalist colleagues. I would strongly encourage, if family agrees, consideration for PEG tube to allow for enteral feedings and medications. 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
--- NOTE | 2021-12-13 06:56 | PC.NURSE ---
During bedside report , pt converted back to sinus rhythm. Bedside report completed with SUSANA Blackburn
--- NOTE | 2021-12-13 08:00 | CT_ITS ---
WS: [id number] CT HEAD NONCONTRAST HISTORY: AMS TECHNIQUE: Contiguous axial imaging performed through the brain in 2.5 mm imaging. Bone and soft tiss ue windows. Sagittal and coronal reformats reviewed. All CT scans at [facility] use at least one of these dose optimization techniques: automated exposure control; mA and/or kV adjustment per pa tient size (includes targeted exams where dose is matched to clinical indication); or iterative recon struction. DLP: 1064.54 mGy.cm COMPARISON: None available. Study is limited by motion artifact. Several attempts were made to reduce the amount of motion artifa ct. There is artifact through the brain which is related to motion. Small areas of acute hemorrhage m ay not be visualized. There is increased density over the RIGHT parietal lobe which I believe is due to motion and not acute blood. No edema or sulcal effacement is evident. Mild atrophy and small vessel ischemic disease. Ventricles: Normal size with no hydrocephalus. Paranasal sinuses: Mild mucoperiosteal thickening in the ethmoid air cells, RIGHT frontal and RIGHT m axillary sinus. Mastoid air cells: Well pneumatized. Calvarium and scalp: Skull is intact with no soft tissue edema or swelling. CT/CT head wo con* [id number] IMPRESSION: 1. Quality of this examination is limited by motion artifact despite repeated attempts at obtaining a motion free exam. 2. No evidence for acute hemorrhage. There is no mass effect or midline shift. No focal edema. 3. If patient's symptoms do not improve consider follow-up CT with patient sed ation.
[2021-12-13 08:25] LABS: Glucose Point of Care 145 mg/dL (70-110)
--- NOTE | 2021-12-13 10:28 | PC.CHAP ---
Pastoral Care Encounter/Spiritual Assessment Type of Contact [] Declined alum plant supervisor visit [] Patient/Family/Request visit [] Outpatient visit [] Follow-up visit [] Physician referral [] Code/Alert [x] Routine visit [] Staff referral [] Actively dying [x] Patient sleeping [] Family support [] [] Out of room [] Palliative care [] [] Receiving care in room [] Pre-surgical visit [] Trauma [] Long length of stay [x] ICU visit [x] Other: PT still restless Relational/Emotional Strength [] Patient feels connected with others/family/visitors/staff [] Distress [] Loneliness/isolation [] Abandonment Spirituality of Patient [] Person of Maty [] Attends Quaker of their Maty [] Believes in Prayer [] Reads Bible or Sikhism materials [] There are Spiritual issues to be addressed Collections Associate Interventions [x] Prayer [] Active listening [] Non-anxious presence [] Spiritual/emotional support [] Crisis/trauma care [] Spiritual counseling [] Bereavement support [] Provided bereavement packet [] Provided Bible/devotional materials [] Provided toy/stuffed animal, coloring book to patient or family member [] Provided Communion [] Anointing/[place] [] Salvation [x] Completed spiritual assessment [] Other: Impact on Illness or Injury [] Angry [] Fearful [] Anxious [] Often cries [] Exhaustion [] Unable to work [] Unable to attend congregation [] Unable to walk/stand [] Unable to read [] Unable to drive [] Unable to eat/drink [] Unable to sleep [] Unable to be with family [] Patient intubated [] Other: Summary Time spent with patient
--- NOTE | 2021-12-13 11:55 | SUR.PREOP ---
PICC VS MIDLINE Discussed with d/t patient's status and pulling out so many IV's, if he would be okay with midline as it will not have the position requirments of a picc should he pull it out. He stated agreeance as well as they are considering peg tube placement for nutrition, so midline placement would be fine. Noted. Orders to reflect that change placed.
--- NOTE | 2021-12-13 12:24 | SUR.PREOP ---
CONSENT Awaiting consent for midline placement from DPOA. Insert will require 2 people for assist as the patient is moving freely in bed and does not seem to comply with verbal commands at this point
--- NOTE | 2021-12-13 12:30 | PC.NURSE ---
Mediations delays related to care of multiple critical care patients.
--- NOTE | 2021-12-13 12:52 | SUR.PREOP ---
(DPOA) contacted. Verbal consent to change to midline. Discussed. agreed to midline placement and gave verbal consent.
[2021-12-13] MEDS: mupirocin oint 22 gm 1 APPLIC NASAL ×2 (12:53→20:11)
--- NOTE | 2021-12-13 12:53 | PM.PN ---
Subjective Subjective: Awake, appears to be trying to turn his head when his name is repeated several times. Does not otherwise follow directions or communicate. Moving about in bed. Patient moving all extremities. Does not appear in pain or discomfort. Vitals/I&O/Wt Last Vital Signs Temp 98 F 12/13/21 07:00 Pulse 134 H 12/13/21 12:32 Resp 20 H 12/13/21 12:32 BP 156/59 12/13/21 07:00 Pulse Ox 97 12/13/21 12:32 O2 Del Method 12/13/21 07:00 O2 Flow Rate 3 12/13/21 07:40 FiO2 5 12/11/21 16:00 12/12/21 12/13/21 12/13/21 22:59 06:59 14:59 Intake Total 50 / 537.597 686.244 / 1223.841 90.5 / 90.5 Output Total 850 / 850 800 / 1650 Balance -800 / -312.403 -113.756 / -426.159 90.5 / 90.5 Weight last 48 hrs Weight 62.641 kg Weight 63.049 kg Physical Exam Const: GENERAL APPEARANCE: not cooperative ORIENTATION/CONSCIOUSNESS: Yes awake and Yes confused HENMT: COMMON NORMALS: oropharynx normal Neck/C-Spine: COMMON NORMALS: no JVD Chest: OTHER: CABG wound dressing. No bleeding. Does not appear in pain. Resp: COMMON NORMALS: normal respiratory effort and clear to auscultation bilaterally AUSCULTATION: clear to auscultation bilaterally Cardio: COMMON NORMALS: no JVD, S1 normal heart sound present, S2 normal heart sound present and No murmurs present (Cardio) RHYTHM: abnormal rhythm irregularly irregular HEART SOUNDS: S1 normal heart sound present and S2 normal heart sound present GI: COMMON NORMALS: Normal to inspection, nondistended, normoactive bowel sounds present, Soft to palpation and non-tender PALPATION: Yes Soft to palpation Extremity: COMMON NORMALS: no joint enlargement and no pedal edema Neuro: COMMON NORMALS: moves all extremities OTHER: No rigidity or clonus Skin: COMMON NORMALS: no rashes or lesions noted GENERAL SKIN EXAM: no rashes or lesions noted Urinary Catheter Management: Mcnamara: Cath Placed During This Visit: yes Reason for Continuing Indwelling Catheter: Accurate Measurement of Urinary Output in Critically Ill Patients Urinary Catheter Date of Insertion: 12/06/21 Urinary Catheter Time of Insertion: 07:48 Data : 12/13/21 03:54 12/13/21 03:54 A&P Assessment and plan (1) Acute encephalopathy: Discussed with his regarding his condition. We discussed also initiation of enteral feeding for which she would need a PEG tube. Discussed benefits and risks of parenteral nutrition in the meantime. With enteral access he would also be able to resume his medications including citalopram. Discussed also risks with his confusion including potentially pulling the tube out. She is agreeable. Discussing with general surgery. Lovenox will need to be held. Discussed also consideration of continued recovery and then rehabilitation at LTAC. Reach out to case management to provide her with more information. Continue treatment of pneumonia. His oxygenation has been gradually improving. Suspected combination from alcohol withdrawal, possibly also inability to take his oral medications including citalopram. Unknown if possible other causes. Additionally pneumonia. ICU delirium. Possibility of contribution of postoperative encephalopathy. Unable to tolerate oral intake. Appears may be starting to get more dehydrated, increase in bicarb to 27. Increase in sodium to 150, although does have chloride increase as well with NS based infusions. Pending CT of the head. Cardiothoracic surgery note reviewed. He is currently awake but confused, turning about aimlessly in bed. Occasionally grabbing onto things. Not likely to maintain NGT in place. Initiate low rate infusion D5W. Follow-up sodium level. Requesting PICC line due to poor peripheral access and multiple lost IVs. Need for multiple infusions. Appreciated recommendation regarding enteral feeding, feeding tube which is thought to be able to be protected better with abdominal binder. I have not been able to reach his spouse to discuss with her today. We will try again tomorrow, and if agreeable request surgical consultation. Status: Acute (2) Flutter-fibrillation: A. fib with RVR overnight had to be started on Cardizem drip. We will schedule his metoprolol IV pushes. Continue amiodarone drip. Wean down Cardizem drip as tolerating. Enteral access being worked on. Continue amiodarone infusion until able to tolerate enteral formulation. As needed metoprolol push. Lovenox anticoagulation will need to be held for PEG. Status: Acute (3) Ventilator associated pneumonia: VAP. Concern also for aspiration pneumonia. Continue empiric antibiotic coverage. Oxygen set forth, wean down as tolerating. Ampicillin resistant Klebsiella in sputum culture. Status: Acute (4) Sepsis: Status: Acute (5) Alcohol withdrawal: Continue supportive care, phenobarbital. He is weaned off Precedex. Status: Acute (6) Status post aorto-coronary artery bypass graft: Continue cardiac medications. Status: Acute (7) Syncope: Status: Acute (8) Dyspnea on exertion: Status: Acute Attestations Medical Necessity Statement*: Continue assessment and management of protracted encephalopathy, supportive care for alcohol withdrawal, treatment of pneumonia, arrangements for enteral access for nutrition and medications, optimization of control of A. fib, post discharge planning. 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
[2021-12-13] MEDS: chlorhexidine gluconate 0.12% Btl 473 mL 15 ML MUCOUS MEM ×2 (12:55→20:11)
[2021-12-13] MEDS: metoprolol tartrate 1 mg/1 mL SDV 5 mL 2.5 MG IVP ×2 (13:10→15:36)
[2021-12-13] MEDS: vancomycin 1,500 MG/300 ML PIGGYBACK 150 MG IV ×2 (13:18→23:27)
--- NOTE | 2021-12-13 13:46 | SUR.PHASEI ---
NOTIFICATION /DPOA notified post midline placement as requested.
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
--- NOTE | 2021-12-13 17:20 | PC.NURSE ---
Pt more alert. Answered yes/no questions about pain and thirst. Assisted pt to sitting on bed, he was able to sip water without difficulty. Fed Jello the fifth bit he coughed a little so we stopped at that time.
[2021-12-13 17:45] LABS: Anion Gap 14.7 (5-19); Blood Urea Nitrogen 13 mg/dL (8-23); Calcium 8.2 mg/dL (8.5-10.5); Carbon Dioxide 26 mmol/L (22-29); Chloride 111 mmol/L (98-107); Glucose 144 mg/dL (65-115); Osmolality Calculated 309 mOsm/kg (285-295); Potassium 3.7 mmol/L (3.5-5.1); Sodium 148 mmol/L (136-145)
--- NOTE | 2021-12-13 18:01 | PC.SLP ---
Pt not alert and attentive enough for oral trials to assess swallowing.
--- NOTE | 2021-12-13 19:25 | PC.NURSE ---
Bedside shift report completed with Dori Blcakburn
--- NOTE | 2021-12-13 20:00 | PC.NURSE ---
Shift Note: Pt rested in bed most of the shift. He was not as restless today. He would open his eyes on occasion but not much response. Then at 1700 he just woke up and started answering yes/no questions. He was able to drink and eat some jello. He is still on Amiodarone gtt. He received Kryer today. Metoprolol 2.5 mg IV; started shceduled every 6 hrs. After receiving this medication today no further heart rhythm issues noted. Urine remains huyen colored. Frequent safety and comfort rounds continue. Orders and/or nursing care completed as indicated. Patient monitored for response to intervention and treatment(s). Education provided includes metoprolol, cefepime, physical therapy, and plan of care. Patient's containers sales representative verbalized understanding of plan of care and medications. Will continue to monitor.
[2021-12-13] MEDS: amiodarone 200 mg Tablet 400 MG PO (20:02)
[2021-12-13] MEDS: metoprolol tartrate 50 mg Tablet PO (20:02)
[2021-12-14] VITALS (59 sets, daily range): BP systolic 90–180; BP diastolic 53–99; PULSE 54–86; RESP 16–42; TEMP 36.2–36.9; O2SAT 86–98; BMI 21.2
[2021-12-14 02:52] LABS: Glucose Point of Care 117 mg/dL (70-110)
[2021-12-14 04:01] LABS: Basophils # 0.1 10^3/uL (0.0-0.1); Basophils % 0.5 %; Eosinophils # 0.5 10^3/uL (0.0-0.8); Eosinophils % 3.6 %; Hematocrit 34.3 % (42.0-52.0); Hemoglobin 11.2 g/dL (11.7-16.6); Lymphocytes # 2.2 10^3/uL (0.8-4.8); Lymphocytes % 16.9 %; Mean Corpuscular HGB Conc 32.7 g/dL (30.0-36.0); Mean Corpuscular Hemoglobin 34.5 pg (28.0-34.0); Mean Corpuscular Volume 105.5 fl (80-94); Mean Platelet Volume 10.6 fL (7.4-10.4); Monocytes # 1.1 10^3/uL (0.2-0.9); Monocytes % 8.7 %; Neutrophils # 8.93 10^3/uL (1.8-7.7); Neutrophils % 69.1 %; Nucleated Red Blood Cells % 0 %; Platelet Count 292 10^3/cmm (130-400); Red Blood Count 3.25 10^6/uL (4.1-5.3); Red Cell Distribution Width 13.2 % (12.1-15.1); White Blood Count 12.9 10^3/uL (4.0-10.0)
[2021-12-14 04:32] LABS: Alanine Aminotransferase 55 U/L (0-41); Albumin Level 2.6 g/dL (3.5-5.2); Alkaline Phosphatase 100 U/L (40-130); Blood Urea Nitrogen 12 mg/dL (8-23); Carbon Dioxide 26 mmol/L (22-29); Chloride 109 mmol/L (98-107); Globulin 2.9 g/dL (1.3-4.6); Glucose 117 mg/dL (65-115); Osmolality Calculated 299 mOsm/kg (285-295); Sodium 144 mmol/L (136-145); Total Bilirubin 1.6 mg/dL (0.15-1.2); Total Protein 5.5 g/dL (6.6-8.7)
[2021-12-14 04:33] LABS: Anion Gap 12.4 (5-19); Aspartate Amino Transferase 73 U/L (0-40)
[2021-12-14 04:34] LABS: Potassium 3.4 mmol/L (3.5-5.1)
--- NOTE | 2021-12-14 05:56 | P.PN_ITS ---
Subjective Subjective: Postop day #8 status post CABG x2. Mr. Gutierrez has now become more arousable and is actually answering some questions appropriately. He knows who he is and where he is at though he is not aware of why he is at the hospital. He has been taking some food orally without evidence for aspiration. He is able to take his oral medications. I will discontinue his IV amiodarone drip. Nurses report that he slept fairly well last night and is clearly less agitated. Despite several rounds of potassium supplementation, he still remains low at 3.4. No arrhythmias reported. He currently is in sinus at 72 bpm. O2 saturation 93 to 94% on nasal cannula. WBC count has decreased slightly to 12.9. H&H is stable. CT scan of head yesterday revealed no obvious mass, midline shift, or hemorrhage. Study was compromised by motion. Vitals/I&O/Wt Last Vital Signs Temp 97.2 F L 12/14/21 04:00 Pulse 72 12/14/21 04:00 Resp 20 H 12/14/21 04:00 BP 133/80 12/14/21 04:00 Pulse Ox 95 12/14/21 04:00 O2 Del Method 12/13/21 21:00 O2 Flow Rate 3 12/13/21 21:00 FiO2 5 12/11/21 16:00 12/13/21 12/13/21 12/14/21 14:59 22:59 06:59 Intake Total 140.5 / 140.5 1228 / 1368.5 830 / 2198.5 Output Total 450 / 451 550 / 1001 Balance 139.5 / 139.5 778 / 917.5 280 / 1197.5 Weight last 48 hrs Weight 138 lb 1.6 oz Weight 139 lb Physical Exam Chest: OTHER: Postoperative dressings are in place. Sternum is stable. Resp: COMMON NORMALS: No use of accessory muscles OTHER: Basilar crackles slightly more so on the right and left Cardio: COMMON NORMALS: regular rate, regular rhythm, S1 normal heart sound present, No murmurs present (Cardio) and No rub (Cardio) RATE: regular rate RHYTHM: regular rhythm HEART SOUNDS: S1 normal heart sound present GI: COMMON NORMALS: Normal to inspection, nondistended, normoactive bowel sounds present Extremity: COMMON NORMALS: no clubbing, cyanosis or edema Neuro: OTHER: Moving all extremities spontaneously and intermittently to command. He is answering simple questions appropriately and has clearly substantially improved cognitively over the past 36 hours. Urinary Catheter Management: Mcnamara: Cath Placed During This Visit: yes Reason for Continuing Indwelling Catheter: Accurate Measurement of Urinary Output in Critically Ill Patients Urinary Catheter Date of Insertion: 12/06/21 Urinary Catheter Time of Insertion: 07:48 Data : 12/14/21 03:49 12/14/21 03:49 A&P Assessment and plan (1) Status post aorto-coronary artery bypass graft: 8 days status post CABG x2. Substantial cognitive improvement. Plan: Potassium supplementation. Discontinue IV amiodarone. Nutritional shakes with meals. Up in chair with physical therapy. Appreciate Dr. Adams and our hospitalist team for their expertise. Status: Acute Attestations Medical Necessity Statement*: Postop day Debray status post CABG with postoperative delirium which is now clearing. Suspected substance withdrawal Coding Level of Care Code Acute Blueprint Reproducer for Raymond Osborne Diagnoses Status post aorto-coronary artery bypass graft Z95.1
[2021-12-14] MEDS: piperacillin-tazobactam 3.375 GM in dextrose 5% (plus) 50 ML IV ×3 (05:58→21:21)
[2021-12-14] MEDS: potassium chloride premix 100 ML 25 MEQ IV ×2 (06:35→10:53)
--- NOTE | 2021-12-14 06:55 | PC.NURSE ---
Bedside report completed with SUSANA Blackburn
[2021-12-14 07:55] LABS: Glucose Point of Care 134 mg/dL (70-110)
--- NOTE | 2021-12-14 09:06 | PM.PN ---
Subjective Subjective: He is being a light sleeper, but responds to voice. When called by name he appears to open his eyes and turn his head towards me. He does not really follow directions. He does not tell me his name when asked. When asked if he is in pain he does appear to not know. Does not otherwise follow any additional requests. Vitals/I&O/Wt Last Vital Signs Temp 97.2 F L 12/14/21 04:00 Pulse 68 12/14/21 08:33 Resp 16 12/14/21 08:33 BP 114/61 12/14/21 06:15 Pulse Ox 97 12/14/21 08:33 O2 Del Method 12/14/21 08:33 O2 Flow Rate 3 12/14/21 08:33 FiO2 5 12/11/21 16:00 12/13/21 12/14/21 12/14/21 22:59 06:59 14:59 Intake Total 1228 / 1368.5 1299 / 2667.5 Output Total 450 / 451 550 / 1001 Balance 778 / 917.5 749 / 1666.5 Weight last 48 hrs Weight 70.896 kg Weight 62.641 kg Physical Exam Const: GENERAL APPEARANCE: not cooperative ORIENTATION/CONSCIOUSNESS: Yes awake and Yes confused HENMT: COMMON NORMALS: oropharynx normal Neck/C-Spine: COMMON NORMALS: no JVD Chest: OTHER: CABG wound dressing. No bleeding. Does not appear in pain. Resp: COMMON NORMALS: normal respiratory effort and clear to auscultation bilaterally AUSCULTATION: clear to auscultation bilaterally Cardio: COMMON NORMALS: no JVD, S1 normal heart sound present, S2 normal heart sound present and No murmurs present (Cardio) RHYTHM: abnormal rhythm irregularly irregular HEART SOUNDS: S1 normal heart sound present and S2 normal heart sound present GI: COMMON NORMALS: Normal to inspection, nondistended, normoactive bowel sounds present, Soft to palpation and non-tender PALPATION: Yes Soft to palpation Extremity: COMMON NORMALS: no joint enlargement and no pedal edema Neuro: COMMON NORMALS: moves all extremities OTHER: No rigidity or clonus Skin: COMMON NORMALS: no rashes or lesions noted GENERAL SKIN EXAM: no rashes or lesions noted Urinary Catheter Management: Mcnamara: Cath Placed During This Visit: yes Reason for Continuing Indwelling Catheter: Accurate Measurement of Urinary Output in Critically Ill Patients Urinary Catheter Date of Insertion: 12/06/21 Urinary Catheter Time of Insertion: 07:48 Data : 12/14/21 03:49 12/14/21 03:49 A&P Assessment and plan (1) Acute encephalopathy: Today he appears little bit more alert, appears to respond little more readily to his name, although still mostly does not track, although did nod his head no when asked if he was in pain. Did not answer other questions for me, and did not follow directions. Overall perhaps slightly better. Discussed with his regarding his condition. We discussed also initiation of enteral feeding for which she would need a PEG tube. Discussed benefits and risks of parenteral nutrition in the meantime. With enteral access he would also be able to resume his medications including citalopram. Discussed also risks with his confusion including potentially pulling the tube out. She is agreeable. Discussing with general surgery. Lovenox will need to be held. Continue treatment of pneumonia. His oxygenation has been gradually improving. Suspected combination from alcohol withdrawal, possibly also inability to take his oral medications including citalopram. Unknown if possible other causes. Additionally pneumonia. ICU delirium. Possibility of contribution of postoperative encephalopathy. Unable to tolerate oral intake. Appears may be starting to get more dehydrated, increase in bicarb to 27. Increase in sodium to 150, although does have chloride increase as well with NS based infusions. Pending CT of the head. Cardiothoracic surgery note reviewed. He is currently awake but confused, turning about aimlessly in bed. Occasionally grabbing onto things. Not likely to maintain NGT in place. Hypernatremia has improved with low rate D5W infusion. Midline catheter placed for TPN which has been requested. Requesting also ST evaluation, OT evaluation. He is also to be seen by surgery for still consideration of possible PEG tube. We discussed with his spouse also consideration of further recovery at LTAC, and this is being looked into by case management. Status: Acute (2) Flutter-fibrillation: Heart rates are overall better. Metoprolol IV since 12/13 has not been administered due to improvement. Will discontinue metoprolol IV pushes. Continue only as needed. Continue amiodarone. Enteral access being worked on. Continue amiodarone infusion until able to tolerate enteral formulation. As needed metoprolol push. Lovenox anticoagulation will need to be held for PEG. Status: Acute (3) Ventilator associated pneumonia: VAP. Concern also for aspiration pneumonia. Continue empiric antibiotic coverage. Oxygen set forth, wean down as tolerating. Ampicillin resistant Klebsiella in sputum culture. Status: Acute (4) Sepsis: Status: Acute (5) Alcohol withdrawal: Continue supportive care, phenobarbital. He is weaned off Precedex. Status: Acute (6) Status post aorto-coronary artery bypass graft: Continue cardiac medications. Status: Acute (7) Syncope: Status: Acute (8) Dyspnea on exertion: Status: Acute Plan Liver parameters normalities: Hyperbilirubinemia, mild transaminitis. Will assess RUQ US. Alk phos is normal. Attestations Medical Necessity Statement*: Continue admission for assessment of protracted encephalopathy, optimization of control of A. fib with RVR, treatment of pneumonia, post CABG care, post hospital care planning. Coding Level of Care Code Acute Medical Insurance Claims Processor for Raulg Fwd Exam Comprehensive Diagnoses Acute encephalopathy G93.40 Flutter-fibrillation Ventilator associated pneumonia J95.851 Sepsis A41.9 Alcohol withdrawal F10.939 Status post aorto-coronary artery bypass graft Z95.1 Syncope R55 Dyspnea on exertion R06.00
[2021-12-14] MEDS: folic acid 1 mg Tablet PO (10:45)
[2021-12-14] MEDS: tamsulosin 0.4 mg Capsule PO (10:46)
[2021-12-14] MEDS: citalopram 20 mg Tablet 40 MG PO (10:46)
[2021-12-14] MEDS: multivitamin therapeutic Tablet 1 TAB PO (10:46)
[2021-12-14] MEDS: aspirin 81 mg EC Tablet PO (10:46)
[2021-12-14] MEDS: amiodarone 200 mg Tablet 400 MG PO (10:46)
[2021-12-14] MEDS: metoprolol tartrate 50 mg Tablet 25 MG PO (10:52)
[2021-12-14] MEDS: dextrose 5% 1,000 ML 30 ML IV (12:51)
[2021-12-14] MEDS: vancomycin 1,500 MG/300 ML PIGGYBACK 150 MG IV ×2 (12:52→23:34)
--- NOTE | 2021-12-14 13:03 | US_ITS ---
WS: [id number] RIGHT UPPER QUADRANT ULTRASOUND HISTORY: Abnormal labs. COMPARISON: None available. Liver: 17.6 cm in length. Mildly enlarged liver. Mild coarse echotexture. No mass or bile duct dilata tion. Portal Vein: Normal hepatopetal flow with monophasic waveform. Gallbladder: Normally distended gallbladder with sludge. Sludge fills approximately 50% of the gallbl adder. No pericholecystic fluid. Gallbladder wall is mildly prominent at 4 mm. CBD: 0.5 cm Pancreas: Obscured by bowel gas. Right kidney: 11.2 cm in length. Normal size and echogenicity. No hydronephrosis or mass. Aorta and IVC: Unremarkable abdominal aorta and IVC. No ascites. US/US abdomen limited [id number] IMPRESSION: 1. Gallbladder sludge fills nearly 50% of the gallbladder lumen. No stones kathya ntified. 2. No pericholecystic fluid. The gallbladder wall is mildly thickened. 3. No bile duct dilatation.
--- NOTE | 2021-12-14 16:29 | PM.MISC ---
Miscellaneous Note Purpose of Documentation: Nurses report Mr. Gutierrez had a good day. Family is at bedside. He continues to be slowly increasing in communication. He states he wants to go home. He is aware he is in the hospital and that he had surgery. Reported that he ate about one third of his noon meal. He did drink 1 can of Ensure. No further arrhythmias noted though his heart rate has drifted into the 50s. I concur with the recommendation to decrease his metoprolol to 12.5 mg twice daily and as well, I would decrease his amiodarone to 200 mg twice daily.
[2021-12-14] MEDS: amiodarone 200 mg Tablet PO (17:11)
[2021-12-14] MEDS: enoxaparin 80 mg/0.8 mL Syringe 70 MG SUBCUT (18:04)
--- NOTE | 2021-12-14 19:15 | PC.NURSE ---
Bedside report completed with SUSANA Guerrero and SUSANA Victor.
--- NOTE | 2021-12-14 19:47 | PC.NURSE ---
Shift Note: Pt up out of bed today to chair with PT assistance. He sat up in chair most of the day. He follows commands today. He is alert to self, place and year. Pt now taking PO medications without difficulty. Speech evaluation recommends full liquid diet. Pt eats 25-50% No ectopy noted on monitor all shift. He was bradycardic, metoprolol PO and amiodarone PO dosages changed. Urine remains huyen. Family in again, very attentive to patient. Frequent safety and comfort rounds continue. Orders and/or nursing care completed as indicated. Patient monitored for response to intervention and treatment(s). Education provided includes plan of care, speech therapy and PT. Patient and/or life assurance representative verbalized understanding of paln of care.. Will continue to monitor.
[2021-12-14] MEDS: metoprolol tartrate 25 mg Tablet 12.5 MG PO (21:21)
[2021-12-14 23:25] LABS: Vancomycin Trough 17.4 ug/mL (10-15)
[2021-12-15] VITALS (29 sets, daily range): BP systolic 90–144; BP diastolic 52–99; PULSE 62–92; RESP 14–32; TEMP 36.2–36.8; O2SAT 85–99
--- NOTE | 2021-12-15 00:27 | PC.NURSE ---
Oxy Mask called RT @0015 bc pts SpO2 was dropping into the low 80's. Pt was sleeping and mouth breathing. Switched pt from NC 6L to Oxy Mask 5L. Current SpO2 95%.
[2021-12-15 04:00] LABS: Basophils % 0.3 %; Eosinophils # 0.6 10^3/uL (0.0-0.8); Eosinophils % 4.6 %; Hematocrit 33.8 % (42.0-52.0); Hemoglobin 10.9 g/dL (11.7-16.6); Lymphocytes # 2.2 10^3/uL (0.8-4.8); Lymphocytes % 17.6 %; Mean Corpuscular HGB Conc 32.2 g/dL (30.0-36.0); Mean Corpuscular Hemoglobin 34.6 pg (28.0-34.0); Mean Corpuscular Volume 107.3 fl (80-94); Mean Platelet Volume 10.6 fL (7.4-10.4); Monocytes # 0.9 10^3/uL (0.2-0.9); Monocytes % 6.9 %; Neutrophils # 8.52 10^3/uL (1.8-7.7); Neutrophils % 69.3 %; Nucleated Red Blood Cells % 0 %; Platelet Count 299 10^3/cmm (130-400); Red Blood Count 3.15 10^6/uL (4.1-5.3); Red Cell Distribution Width 13.3 % (12.1-15.1); White Blood Count 12.3 10^3/uL (4.0-10.0)
[2021-12-15 04:29] LABS: Alanine Aminotransferase 60 U/L (0-41); Albumin Level 2.4 g/dL (3.5-5.2); Alkaline Phosphatase 110 U/L (40-130); Anion Gap 9.2 (5-19); Aspartate Amino Transferase 78 U/L (0-40); Blood Urea Nitrogen 9 mg/dL (8-23); Calcium 7.8 mg/dL (8.5-10.5); Carbon Dioxide 26 mmol/L (22-29); Chloride 102 mmol/L (98-107); Globulin 2.7 g/dL (1.3-4.6); Glucose 107 mg/dL (65-115); Osmolality Calculated 277 mOsm/kg (285-295); Potassium 3.2 mmol/L (3.5-5.1); Sodium 134 mmol/L (136-145); Total Bilirubin 0.8 mg/dL (0.15-1.2); Total Protein 5.1 g/dL (6.6-8.7)
--- NOTE | 2021-12-15 04:56 | PC.NURSE ---
Unable to scan medication Unable to pull cefepine 1,000 mg in dextrose 5% 50ml from the pixis. Pharmacy notified. Due to shortage of dextrose 5% 50ml bags, Pharmacist Jonathon made and delivered the bag to ICU. Barcode would not scan. Double checked medication and patient with Jennifer RN and Jonathon Pharmacist before manual administration.
[2021-12-15] MEDS: ipratropium-albuterol 3 mL Neb INHALATION (05:22)
[2021-12-15] MEDS: acetylcysteine 200 mg/mL SDV 4 mL INHALATION (05:23)
--- NOTE | 2021-12-15 05:28 | PC.NURSE ---
Unable to scan medication Unable to pull piperacillin and tazobactam 3.375 grams in Dextrose 5% 50ml from the pixis. Pharmacy notified. Pharmacist Jonathon delivered mixed bag to ICU. Barcode would not scan. Double checked medication and patient with Jennifer MEZA and Pharmacist Jonathon before manual administration.
[2021-12-15] MEDS: enoxaparin 80 mg/0.8 mL Syringe 70 MG SUBCUT (06:08)
--- NOTE | 2021-12-15 06:21 | PM.PN ---
Subjective Subjective: Mr. Gutierrez is now 9 days status post CABG. I actually had a lucid conversation with him this morning. I asked him what did he want breakfast and he said yes and I asked him what he like for breakfast and he said baptiste and eggs as well as biscuits and gravy. He was able to drink some Ensure with some assistance and appeared to have no problems with swallowing or aspiration. Hemodynamically, he remained stable with no arrhythmias reported overnight. I do note that his potassium is 3.2 this morning though I am unclear as to whether he received his full 80 mill equivalents of KCl yesterday. Vitals/I&O/Wt Last Vital Signs Temp 97.9 F 12/15/21 03:49 Pulse 68 12/15/21 06:00 Resp 30 H 12/15/21 06:00 BP 109/68 12/15/21 06:00 Pulse Ox 94 12/15/21 06:00 O2 Del Method 12/15/21 06:00 O2 Flow Rate 5 12/15/21 06:00 FiO2 5 12/11/21 16:00 12/14/21 12/14/21 12/15/21 14:59 22:59 06:59 Intake Total 1499.5 / 1499.5 400 / 1899.5 400 / 2299.5 Output Total 875 / 875 Balance 1499.5 / 1499.5 -475 / 1024.5 400 / 1424.5 Weight last 48 hrs Weight 159 lb Weight 156 lb 4.8 oz Physical Exam Chest: OTHER: Chest wall remained stable. Dressings are clean and dry. He receives dressing changes daily. Resp: OTHER: basilar crackles and he does need some toilet. Cardio: COMMON NORMALS: regular rate, regular rhythm, S1 normal heart sound present and No murmurs present (Cardio) RATE: regular rate RHYTHM: regular rhythm HEART SOUNDS: S1 normal heart sound present Urinary Catheter Management: Mcnamara: Cath Placed During This Visit: yes Reason for Continuing Indwelling Catheter: Accurate Measurement of Urinary Output in Critically Ill Patients Urinary Catheter Date of Insertion: 12/06/21 Urinary Catheter Time of Insertion: 07:48 Data : 12/15/21 03:37 12/15/21 03:37 Micro: Microbiology 12/09/21 18:48 Blood Culture - Final Blood NO GROWTH AFTER 5 DAYS 12/09/21 18:43 Blood Culture - Final Blood NO GROWTH AFTER 5 DAYS A&P Assessment and plan (1) Status post aorto-coronary artery bypass graft: Just over 1 week status post CABG with postop delirium which has substantially cleared over the past 36 hours. I believe we can reconsider whether PEG tube is necessary if he continues to progress as rapidly as he has since yesterday. He would benefit from shower or at least a full sponge bath today. I will advance his diet and he can be observed carefully while eating. He appears hungry for baptiste and eggs. 80 mEq KCl today. BMP with magnesium and phosphorus level at 4 PM today Appreciate the efforts and expertise of Dr. 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
[2021-12-15 06:59] LABS: Glucose Point of Care 118 mg/dL (70-110)
[2021-12-15] MEDS: amiodarone 200 mg Tablet PO (07:37)
[2021-12-15] MEDS: citalopram 20 mg Tablet 40 MG PO (07:37)
[2021-12-15] MEDS: folic acid 1 mg Tablet PO (07:37)
[2021-12-15] MEDS: metoprolol tartrate 25 mg Tablet 12.5 MG PO (07:38)
[2021-12-15] MEDS: aspirin 81 mg EC Tablet PO (07:38)
[2021-12-15] MEDS: tamsulosin 0.4 mg Capsule PO (07:38)
[2021-12-15] MEDS: multivitamin therapeutic Tablet 1 TAB PO (07:38)
[2021-12-15] MEDS: potassium chloride premix 100 ML 25 MEQ IV (08:01)
[2021-12-15] MEDS: chlorhexidine gluconate 0.12% Btl 473 mL 15 ML MUCOUS MEM (08:11)
--- NOTE | 2021-12-15 10:29 | PC.CHAP ---
Pastoral Care Encounter/Spiritual Assessment Type of Contact [] Declined home health care respiratory therapist visit [] Patient/Family/Request visit [] Outpatient visit [] Follow-up visit [] Physician referral [] Code/Alert [x] Routine visit [] Staff referral [] Actively dying [] Patient sleeping [x] Family support [] [] Out of room [] Palliative care [] [] Receiving care in room [] Pre-surgical visit [] Trauma [] Long length of stay [x] ICU visit [x] Other: setting in chair... watching tv Relational/Emotional Strength [] Patient feels connected with others/family/visitors/staff [] Distress [] Loneliness/isolation [] Abandonment Spirituality of Patient [] Person of Maty [] Attends Yazdanism of their Maty [] Believes in Prayer [] Reads Bible or Anabaptism materials [] There are Spiritual issues to be addressed Pediatric Psychologist Interventions [x] Prayer [] Active listening [] Non-anxious presence [] Spiritual/emotional support [] Crisis/trauma care [] Spiritual counseling [] Bereavement support [] Provided bereavement packet [] Provided Bible/devotional materials [] Provided toy/stuffed animal, coloring book to patient or family member [] Provided Communion [] Anointing/[place] [] Salvation [x] Completed spiritual assessment [] Other: Impact on Illness or Injury [] Angry [] Fearful [] Anxious [] Often cries [] Exhaustion [] Unable to work [] Unable to attend buddhism [] Unable to walk/stand [] Unable to read [] Unable to drive [] Unable to eat/drink [] Unable to sleep [] Unable to be with family [] Patient intubated [] Other: Summary Time spent with patient
[2021-12-15] MEDS: vancomycin 1,500 MG/300 ML PIGGYBACK 150 MG IV (12:26)
[2021-12-15] MEDS: lidocaine 1% 5 ML in potassium chloride premix 100 ML 25 ML IV (16:04)
--- NOTE | 2021-12-15 17:24 | PC.NURSE ---
Report called to Juanpablo MEZA at [facility]. [facility] on unit to transfer patient. Laury at bedside. No needs or concerns voiced.
--- NOTE | 2021-12-15 17:31 | PC.NURSE ---
updated the expecting facility with departure time.
--- NOTE | 2021-12-15 19:41 | P.TS_ITS ---
Transfer Summary Providers Date of Admission: 12/06/21 15:23 Date of Discharge/Transfer: 12/15/21 Attending Provider at Admission: Jasiel Escalante MD Attending Provider at Transfer: Jasiel Escalante MD Primary Care Provider: AYDE Cox Transfer Plans: Anticipated date of transfer: 12/15/21 . Diagnoses at Discharge Discharge Diagnosis (1) Status post aorto-coronary artery bypass graft: Status: Acute Reason for Visit Reason for Visit Syncope Hospital Course Hospital Course 76-year-old gentleman with history of CAD status post 3 stents in 2014 and recently syncopal episode, dyspnea on exertion, 4.2-second pause on event monitor, underwent assessment by coronary angiogram with finding of severe proximal LAD disease as well as LAD occlusion just distal to previously placed stents, HTN admitted originally on 12/06 underwent CABG x2, subsequently while intubated on ventilator with autonomic dysfunction, agitation, severe alcohol withdrawal. Was treated with phenobarbital, supportive care. Subsequently also with finding of possible sepsis, pneumonia, ventilator associated, possible aspiration after episode of emesis, for which subsequently was treated with Zosyn and vancomycin. Sputum culture eventually growing Klebsiella pneumonia. Possible contribution of encephalopathy, delirium secondary to pneumonia, ICU delirium. Possible contribution of postoperative delirium. Received also thiamine, folic acid, multivitamins. Atrial fibrillation with RVR was managed with IV metoprolol, Cardizem drip, amiodarone drip, subsequently continued on amiodarone drip with intermittent IV metoprolol. Therapeutic Lovenox anticoagulation. Restlessness, agitation gradually improved, respirations gradually improved and he was able to be extubated to nasal cannula oxygen on 12/10, initially requiring up to 5 L, however still with persistent hypoactive delirium. With changes in sleep-wake cycle. Was not making eye contact, communicating, not following directions, unable to tolerate oral intake. Started on TPN, would not have been able to keep NG tube in, PEG tube was considered transiently. CT of the head limited by motion artifact, no evidence of acute hemorrhage, no mass affect or midline shift. No focal edema. He has slowly continued to improve, however, and so far has started taking oral medications and subsequently some nutrition. This morning for first time verbally communicating. Denies pain or discomfort. Significantly deconditioned requiring 2 person assist for ambulation. Continues to require optimization of control of atrial fibrillation, medications decreased also due to bradycardia, weaned off amiodarone drip, metoprolol decreased to 12.5 mg twice daily amiodarone to 200 mg twice daily. With required TPN, with significant deconditioning, slow to improve delirium, he is proceeding for further recovery at [facility]. Physical Exam Const: COMMON NORMALS: alert GENERAL APPEARANCE: cooperative ORIENTATION/CONSCIOUSNESS: Yes awake OTHER: Denies pain or discomfort. Today he is following directions. Moving all extremities. HENMT: COMMON NORMALS: oropharynx normal Neck/C-Spine: COMMON NORMALS: no JVD Chest: OTHER: CABG wound dressing. No bleeding. Does not appear in pain. Resp: COMMON NORMALS: normal respiratory effort and clear to auscultation bilaterally AUSCULTATION: clear to auscultation bilaterally Cardio: COMMON NORMALS: no JVD, S1 normal heart sound present, S2 normal heart sound present and No murmurs present (Cardio) RHYTHM: abnormal rhythm irregularly irregular HEART SOUNDS: S1 normal heart sound present and S2 normal heart sound present GI: COMMON NORMALS: Normal to inspection, nondistended, normoactive bowel sounds present, Soft to palpation and non-tender PALPATION: Yes Soft to palpation Extremity: COMMON NORMALS: no joint enlargement and no pedal edema Neuro: COMMON NORMALS: moves all extremities SENSORIUM/ORIENTATION: Yes alert OTHER: No rigidity or clonus Skin: COMMON NORMALS: no rashes or lesions noted GENERAL SKIN EXAM: no rashes or lesions noted Urinary Catheter Management: Mcnamara: Cath Placed During This Visit: yes Reason for Continuing Indwelling Catheter: Accurate Measurement of Urinary Output in Critically Ill Patients Urinary Catheter Date of Insertion: 12/06/21 Urinary Catheter Time of Insertion: 07:48 TS Data Studies Completed and Pending Pending at discharge Category Date Time Status Complete Crossmatch Routine Lab 12/05/21 11:10 Results Leukocyte Reduced RBC Routine Lab 12/05/21 11:10 Results Type and Screen - Cardiac Routine Lab 12/05/21 11:10 Results Labs from last 24 hours 12/15/21 12/15/21 12/15/21 06:55 03:37 03:37 WBC 12.3 H RBC 3.15 L Hgb 10.9 L Hct 33.8 L MCV 107.3 H MCH 34.6 H MCHC 32.2 RDW 13.3 Plt Count 299 MPV 10.6 H Neut % (Auto) 69.3 Lymph % (Auto) 17.6 [place] % (Auto) 6.9 Eos % (Auto) 4.6 Baso % (Auto) 0.3 Neut # (Auto) 8.52 H Lymph # (Auto) 2.2 [place] # (Auto) 0.9 Eos # (Auto) 0.6 Baso # (Auto) 0.0 Nucleated RBC % (auto) 0 Nucleated RBCs # 0.0 Sodium 134 L Potassium 3.2 L Chloride 102 Carbon Dioxide 26 Anion Gap 9.2 BUN 9 Creatinine 0.6 L GFR Calculation Not Reportable Glucose 107 POC Glucose 118 H Calculated Osmolality 277 L Calcium 7.8 L Total Bilirubin 0.8 AST 78 H ALT 60 H Alkaline Phosphatase 110 Total Protein 5.1 L Albumin 2.4 L Globulin 2.7 Vancomycin Trough 12/14/21 22:52 WBC RBC Hgb Hct MCV MCH MCHC RDW Plt Count MPV Neut % (Auto) Lymph % (Auto) [place] % (Auto) Eos % (Auto) Baso % (Auto) Neut # (Auto) Lymph # (Auto) [place] # (Auto) Eos # (Auto) Baso # (Auto) Nucleated RBC % (auto) Nucleated RBCs # Sodium Potassium Chloride Carbon Dioxide Anion Gap BUN Creatinine GFR Calculation Glucose POC Glucose Calculated Osmolality Calcium Total Bilirubin AST ALT Alkaline Phosphatase Total Protein Albumin Globulin Vancomycin Trough 17.4 H Completed Studies During Hospitalization Category Date Time Status CT head wo con* [id number] Routine Cat Scan 12/13/21 08:00 Completed CXRP [XR chest 1V portable [id number]] Routine Exams 12/06/21 16:47 Completed CXRP [XR chest 1V portable [id number]] Routine Exams 12/06/21 17:40 Completed XR chest 1V portable [id number] Routine Exams 12/05/21 10:46 Completed XR chest 1V portable [id number] Routine Exams 12/06/21 08:34 Completed XR chest 1V portable [id number] Routine Exams 12/07/21 06:00 Completed XR chest 1V portable [id number] Routine Exams 12/08/21 06:00 Completed XR chest 1V portable [id number] Routine Exams 12/10/21 06:00 Completed XR chest 1V portable [id number] Routine Exams 12/11/21 06:00 Completed US abdomen limited [id number] Routine Ultrasound 12/14/21 13:03 Completed US venous duplex lower extremity bilat [CV venous Ultrasound 12/11/21 16:23 [place] [id number]] Routine Laboratory Last Values WBC 12.3 10^3/uL (4.0-10.0) H 12/15/21 03:37 Corrected WBC Cancelled 12/10/21 04:42 RBC 3.15 10^6/uL (4.1-5.3) L 12/15/21 03:37 Hgb 10.9 g/dL (11.7-16.6) L 12/15/21 03:37 Hct 33.8 % (42.0-52.0) L 12/15/21 03:37 MCV 107.3 fl (80-94) H 12/15/21 03:37 MCH 34.6 pg (28.0-34.0) H 12/15/21 03:37 MCHC 32.2 g/dL (30.0-36.0) 12/15/21 03:37 RDW 13.3 % (12.1-15.1) 12/15/21 03:37 Plt Count 299 10^3/cmm (130-400) 12/15/21 03:37 MPV 10.6 fL (7.4-10.4) H 12/15/21 03:37 Gran % Cancelled 12/10/21 04:42 Neut % (Auto) 69.3 % 12/15/21 03:37 Lymph % (Auto) 17.6 % 12/15/21 03:37 [place] % (Auto) 6.9 % 12/15/21 03:37 Eos % (Auto) 4.6 % 12/15/21 03:37 Baso % (Auto) 0.3 % 12/15/21 03:37 Neut # (Auto) 8.52 10^3/uL (1.8-7.7) H 12/15/21 03:37 Lymph # (Auto) 2.2 10^3/uL (0.8-4.8) 12/15/21 03:37 [place] # (Auto) 0.9 10^3/uL (0.2-0.9) 12/15/21 03:37 Eos # (Auto) 0.6 10^3/uL (0.0-0.8) 12/15/21 03:37 Baso # (Auto) 0.0 10^3/uL (0.0-0.1) 12/15/21 03:37 Absolute Gran (auto) Cancelled 12/10/21 04:42 Nucleated RBC % (auto) 0 % 12/15/21 03:37 Nucleated RBCs # 0.0 /100WBC 12/15/21 03:37 PT 13.60 SECONDS (12.1-14.9) 12/07/21 03:25 INR 1.01 (0.8-1.2) 12/07/21 03:25 APTT 29.3 SECONDS (23.9-36.7) 12/07/21 03:25 D-Dimer 2.85 ug/mIFEU (0-0.59) H 12/12/21 03:58 Specimen Type Arterial 12/09/21 07:10 Sample Site Radial, right 12/09/21 07:10 ABG pH 7.44 (7.35-7.45) 12/09/21 07:10 ABG pCO2 37.9 mmHg (35-45) 12/09/21 07:10 ABG pO2 83.8 mmHg (80.0-100.0) 12/09/21 07:10 ABG HCO3 25.9 mmol/L (22-26) 12/09/21 07:10 ABG O2 Saturation 97.9 12/09/21 07:10 ABG Base Excess 1.8 mmol/L (-2.0-2.0) 12/09/21 07:10 Luis Test Pos 12/09/21 07:10 A-a O2 Gradient 15.4 mmHg (5-10) H 12/09/21 07:10 Hematocrit 34.0 % (42-52) L 12/09/21 07:10 Hgb O2 Saturation 95.9 % (95-100) 12/09/21 07:10 Carboxyhemoglobin 1.6 %THgb (0.4-20.1) 12/09/21 07:10 Methemoglobin 0.6 % (0.4-1.5) 12/09/21 07:10 Total Hemoglobin 11.1 g/dL (14-18) L 12/09/21 07:10 Sodium 144.0 mmol/L (131-143) H 12/09/21 07:10 Potassium 4.3 mmol/L (3.5-5.0) 12/09/21 07:10 Glucose 149.0 mg/dL (70-115) H 12/09/21 07:10 Ionized Calcium 1.2 mmol/L (1.1-1.4) 12/09/21 07:10 O2 Delivery Device Vent 12/09/21 07:10 FiO2 35.0 % 12/09/21 07:10 Tidal Volume 0.60 12/09/21 07:10 PEEP 5.0 cmH20 12/09/21 07:10 Lye Bath Operator ID Gd 12/09/21 07:10 Sodium 134 mmol/L (136-145) L 12/15/21 03:37 Potassium 3.2 mmol/L (3.5-5.1) L 12/15/21 03:37 Chloride 102 mmol/L (98-107) 12/15/21 03:37 Carbon Dioxide 26 mmol/L (22-29) 12/15/21 03:37 Anion Gap 9.2 (5-19) 12/15/21 03:37 BUN 9 mg/dL (8-23) 12/15/21 03:37 Creatinine 0.6 mg/dL (0.7-1.2) L 12/15/21 03:37 GFR Calculation Not Reportable 12/15/21 03:37 Glucose 107 mg/dL (65-115) 12/15/21 03:37 POC Glucose 118 mg/dL (70-110) H 12/15/21 06:55 Fasting Glucose 93 mg/dL (74-106) 12/07/21 03:25 Calculated Osmolality 277 mOsm/kg (285-295) L 12/15/21 03:37 Lactic Acid 1.3 mmol/L (0.5-2.2) 12/09/21 18:43 Lactate 1.1 mmol/L (0.5-2.2) 12/09/21 21:50 Calcium 7.8 mg/dL (8.5-10.5) L 12/15/21 03:37 Phosphorus 1.6 mg/dL (2.5-4.5) L 12/13/21 03:54 Magnesium 2.2 mg/dL (1.7-2.3) 12/13/21 03:54 Total Bilirubin 0.8 mg/dL (0.15-1.2) 12/15/21 03:37 Direct Bilirubin 0.20 mg/dL (0.00-0.30) 12/05/21 11:10 AST 78 U/L (0-40) H 12/15/21 03:37 ALT 60 U/L (0-41) H 12/15/21 03:37 Alkaline Phosphatase 110 U/L (40-130) 12/15/21 03:37 Ammonia 28 umol/L (16-60) 12/09/21 12:15 C-Reactive Protein 262.6 mg/L (0.0-4.9) H 12/12/21 03:58 Total Protein 5.1 g/dL (6.6-8.7) L 12/15/21 03:37 Albumin 2.4 g/dL (3.5-5.2) L 12/15/21 03:37 Globulin 2.7 g/dL (1.3-4.6) 12/15/21 03:37 Vitamin B12 320 pg/mL (232-1245) 12/09/21 11:41 Procalcitonin 1.12 ng/mL (0-0.5) H 12/12/21 03:58 TSH 1.57 uIU/mL (0.27-4.20) 12/05/21 11:10 Free T4 0.81 ng/dL (0.82-1.77) L 12/05/21 11:10 Urine Color Yellow (Yellow) 12/10/21 17:20 Urine Appearance Clear (CLEAR) 12/10/21 17:20 Urine pH 5 (5-7) 12/10/21 17:20 Ur Specific [place] 1.020 (1.005-1.030) 12/10/21 17:20 Urine Protein Neg (Negative) 12/10/21 17:20 Urine Glucose (UA) Norm (Normal) 12/10/21 17:20 Urine Ketones 1+ (Negative) H 12/10/21 17:20 Urine Blood 3+ (Negative) H 12/10/21 17:20 Urine Nitrate Negative (Negative) 12/10/21 17:20 Urine Bilirubin Neg (Negative) 12/10/21 17:20 Urine Urobilinogen Norm mg/dL (Negative) 12/10/21 17:20 Ur Leukocyte Esterase Negative (Negative) 12/10/21 17:20 Urine RBC 0-4 /hpf (0-2) H 12/10/21 17:20 Urine WBC 0-4 /hpf (0-5) H 12/10/21 17:20 Ur Squamous Epith Cells 0-4 /hpf (0-5) H 12/10/21 17:20 Ur Transition Epith Cell 0-4 /hpf 12/08/21 16:05 Ur Renal Epithelial Cell Cloth Winder Machine Operator 12/08/21 16:05 Amorphous Sediment Not Reportable 12/10/21 17:20 Urine Bacteria Trace /hpf (NONE) 12/10/21 17:20 Hyaline Casts 0-4 /lpf H 12/08/21 16:05 Urine Mucus 1+ /hpf 12/10/21 17:20 Vancomycin Trough 17.4 ug/mL (10-15) H 12/14/21 22:52 Ethyl Alcohol < 10 mg/dL (0-10) 12/07/21 16:58 RPR w/Rflx to Titer Non-reactive (NON-REACTIVE) 12/10/21 15:00 HIV 1&2 Ab & HIV 1 Ag Non-reactive (Non-Reactiv) 12/10/21 15:00 HIV 1&2 Antibody Non-reactive (Non-Reactiv) 12/10/21 15:00 Blood Type O Positive 12/05/21 11:10 Rho(D) Type Positive 12/05/21 11:10 Antibody Screen Negative 12/05/21 11:10 Crossmatch See Detail 12/05/21 11:10 Radiology Impressions Chest X-Ray 12/11/21 06:00 IMPRESSION: Interval development of interstitial edema with patchy opacities in the right lung, which may reflect atelectasis versus aspiration or pneumonia. Venous Duplex 12/11/21 16:23 IMPRESSION: No evidence of deep vein thrombosis. Head CT 12/13/21 08:00 IMPRESSION: 1. Quality of this examination is limited by motion artifact despite repeated attempts at obtaining a motion free exam. 2. No evidence for acute hemorrhage. There is no mass effect or midline shift. No focal edema. 3. If patient's symptoms do not improve consider follow-up CT with patient sedation. Abdomen Ultrasound 12/14/21 13:03 IMPRESSION: 1. Gallbladder sludge fills nearly 50% of the gallbladder lumen. No stones identified. 2. No pericholecystic fluid. The gallbladder wall is mildly thickened. 3. No bile duct dilatation. Recent Clincial Data Last Vital Signs Temp 98.2 F 09/01/22 14:00 Pulse 68 12/15/21 17:32 Resp 22 H 12/15/21 17:32 BP 99/62 12/15/21 17:32 Pulse Ox 94 12/15/21 17:32 O2 Del Method 12/15/21 16:00 O2 Flow Rate 3 12/15/21 16:00 FiO2 5 12/11/21 16:00 Vital Signs Temp Pulse Resp BP Pulse Ox O2 Del Method O2 Flow Rate 12/15/21 17:32 68 22 H 99/62 94 12/15/21 16:00 68 22 H 99/62 94 Nasal Cannula 3 12/15/21 12:00 70 20 H 92 Nasal Cannula 3 12/15/21 14:00 98.2 F 74 25 H 95/61 91 Nasal Cannula 3 12/15/21 14:00 92 12/15/21 12:00 68 29 H 123/67 94 Nasal Cannula 3 12/15/21 10:30 66 30 H 143/99 12/15/21 10:00 97.2 F L 72 32 H 144/90 91 12/15/21 09:30 79 31 H 118/91 91 12/15/21 09:00 75 22 H 107/59 12/15/21 08:30 72 14 90/52 85 L 12/15/21 08:00 66 27 H 119/69 93 Intake & Output/Weight 12/13/21 12/14/21 12/15/21 12/16/21 06:59 06:59 06:59 06:59 Intake Total 1223.841 / 0876.999 7551.5 / 2667.5 2299.5 / 2299.5 390 / 390 Output Total 1650 / 1650 1001 / 1001 1875 / 1875 1750 / 1750 Balance -426.159 / -593.558 7987.5 / 1666.5 424.5 / 424.5 -1360 / -1360 Weight 62.641 kg 70.896 kg 72.121 kg Vitals Last Vital Signs Temp 98.2 F 12/15/21 14:00 Pulse 68 12/15/21 17:32 Resp 22 H 12/15/21 17:32 BP 99/62 12/15/21 17:32 Pulse Ox 94 12/15/21 17:32 O2 Del Method 12/15/21 16:00 O2 Flow Rate 3 12/15/21 16:00 FiO2 5 12/11/21 16:00 TS Medications Medications Discontinued Medications Acetaminophen (Acetaminophen 650 Mg Supp) 650 mg OK Q8H PRN PRN Reason: FEVER Last Admin: 12/11/21 20:42 Dose: 650 mg Acetylcysteine (Acetylcysteine 200 Mg/Ml Sdv 4 Ml) 200 mg INHALATION Q4H.RESPIRATORY [facility] Last Admin: 12/15/21 05:23 Dose: 200 mg Acetylcysteine (Acetylcysteine 200 Mg/Ml Sdv 4 Ml) 200 mg INHALATION Q4H.RESPIRATORY PRN PRN Reason: SECRETIONS Albuterol Sulfate (Albuterol 2.5 Mg/0.5 Ml Neb) 2.5 mg INHALATION ONCE PRN PRN Reason: WHEEZING Albuterol/Ipratropium (Ipratropium-Albuterol 3 Ml Neb) 3 ml INHALATION Q6H PRN PRN Reason: wheezing Last Admin: 12/10/21 00:38 Dose: 3 ml Albuterol/Ipratropium (Ipratropium-Albuterol 3 Ml Neb) 3 ml INHALATION Q4H PRN PRN Reason: wheezing Last Admin: 12/15/21 05:22 Dose: 3 ml Amiodarone HCl (Amiodarone 200 Mg Tablet) 400 mg PO BID [facility] Last Admin: 12/14/21 10:46 Dose: 400 mg Amiodarone HCl (Amiodarone 200 Mg Tablet) 200 mg PO BID [facility] Last Admin: 12/15/21 07:37 Dose: 200 mg Artificial Tears (Artificial Tears Op Oint 3.5 Gm) Confirm Administered Dose 21 applic .ROUTE .STK-MED ONE Stop: 12/06/21 06:45 Aspirin (Aspirin 81 Mg Chew Tablet) 81 mg PO ONCE ONE Stop: 12/06/21 19:01 Last Admin: 12/06/21 18:26 Dose: 81 mg Aspirin (Aspirin 81 Mg Ec Tablet) 81 mg PO DAILY [facility] Last Admin: 12/15/21 07:38 Dose: 81 mg Benzocaine (Cetylpyridinium Lozenge) 1 each MUCOUS MEM ONCE ONE Stop: 12/06/21 07:36 Chlorhexidine Gluconate (Chlorhexidine Gluconate 0.12% Btl 473 Ml) 15 ml MUCOUS MEM BID [facility] Last Admin: 12/15/21 08:11 Dose: 15 ml Citalopram Hydrobromide (Citalopram 20 Mg Tablet) 40 mg PO DAILY [facility] Last Admin: 12/15/21 07:37 Dose: 40 mg Dexamethasone (Dexamethasone 4 Mg/Ml Inj) 4 mg IVP Q5M PRN PRN Reason: Nausea unrelieved by Reglan Stop: 12/07/21 07:35 Dextrose (Dextrose 50% Syringe 50 Ml) 25 ml IVP ONCE PRN; Protocol PRN Reason: hypoglycemia protocol Dextrose (Dextrose 50% Syringe 50 Ml) 50 ml IVP PRN PRN; Protocol PRN Reason: hypoglycemia protocol Diltiazem HCl (Diltiazem 5 Mg/Ml Sdv 5 Ml) 5 mg IVP ONCE ONE Stop: 12/10/21 14:13 Last Admin: 12/10/21 14:50 Dose: 5 mg Diphenhydramine HCl (Diphenhydramine 50 Mg/Ml Sdv 1ml) 12.5 mg IVP ONCE PRN PRN Reason: NAUSEA Enoxaparin Sodium (Enoxaparin 80 Mg/0.8 Ml Syringe) 70 mg SUBCUT Q12H [facility] Last Admin: 12/15/21 06:08 Dose: 70 mg Epinephrine (Racepinephrine 0.5 Ml Neb) 0.5 ml INHALATION Q6H.RESP PRN PRN Reason: Stridor Famotidine (Famotidine 20 Mg/2 Ml Inj) 20 mg IVP ONCE PRN PRN Reason: HEARTBURN Fentanyl (Fentanyl 50 Mcg/Ml Inj 2ml) 50 mcg IVP Q10M PRN PRN Reason: Preop Pain Fentanyl (Fentanyl 50 Mcg/Ml Inj 2ml) 100 mcg IVP ONCE PRN PRN Reason: Per anesthesia for block Fentanyl (Fentanyl 50 Mcg/Ml Inj 5ml) Confirm Administered Dose 250 mcg .ROUTE .STK-MED ONE Stop: 12/06/21 06:47 Fentanyl (Fentanyl 50 Mcg/Ml Inj 2ml) 50 mcg IVP Q5M PRN PRN Reason: Pain level 6-10 PACU Phase I Stop: 12/07/21 07:35 Fentanyl (Fentanyl 50 Mcg/Ml Inj 5ml) Confirm Administered Dose 250 mcg .ROUTE .STK-MED ONE Stop: 12/06/21 09:22 Fentanyl (Fentanyl 50 Mcg/Ml Inj 2ml) 50 mcg IVP Q1H PRN PRN Reason: SEVERE PAIN Last Admin: 12/09/21 08:34 Dose: 50 mcg Folic Acid (Folic Acid 1 Mg Tablet) 1 mg PO DAILY [facility] Last Admin: 12/15/21 07:37 Dose: 1 mg Furosemide (Furosemide 10 Mg/Ml Sdv 2ml) 20 mg IVP ONCE ONE Stop: 12/10/21 09:21 Last Admin: 12/10/21 09:33 Dose: 20 mg Furosemide (Furosemide 10 Mg/Ml Sdv 2ml) 20 mg IVP ONCE ONE Stop: 12/11/21 09:01 Last Admin: 12/11/21 08:35 Dose: 20 mg Glucagon (Glucagon 1 Mg/Ml Inj 1 Ml) 1 mg IM ONCE PRN; Protocol PRN Reason: Adult Acute Hypoglycemia Prot Hydralazine HCl (Hydralazine 20 Mg/Ml Inj 1 Ml) 5 mg IVP ONCE PRN PRN Reason: Systolic BP > 140 mmHg Hydromorphone HCl (Hydromorphone 1 Mg/Ml Inj 1 Ml) 0.5 mg IVP Q10M PRN PRN Reason: Pain level 7-10 PACU Phase I Stop: 12/07/21 07:35 Hydromorphone HCl (Hydromorphone 1 Mg/Ml Inj 1 Ml) 0.25 mg IVP Q10M PRN PRN Reason: Pain level 4-6 PACU Phase I Stop: 12/07/21 07:35 Papaverine HCl 240 mg/ N/A/ (Sodium Chloride) 40 mls @ 0 mls/hr IV ONCE ONE Stop: 12/06/21 06:01 Last Infusion: 12/06/21 10:16 Dose: Infused Cefuroxime Sodium 1,500 mg/ (Sodium Chloride) 50 mls @ 100 mls/hr IV ONCE ONE Stop: 12/06/21 06:29 Last Infusion: 12/06/21 10:02 Dose: Infused Cefuroxime Sodium 1,500 mg/ (Sodium Chloride) 50 mls @ 100 mls/hr IV ONCE ONE Stop: 12/06/21 12:29 Last Infusion: 12/06/21 12:51 Dose: Infused Sodium Chloride (Sodium Chloride 0.9%) 1,000 mls @ 30 mls/hr IV .Q24H [facility] Stop: 12/07/21 05:59 Last Infusion: 12/09/21 20:15 Dose: Infused Sodium Chloride (Sodium Chloride 0.9%) 500 mls @ 999 mls/hr IV .Q31M PRN PRN Reason: HYPOTENSION Propofol (Diprivan) Confirm Administered Dose 1,000 mg in 100 mls @ as directed .ROUTE .STK-MED ONE Stop: 12/06/21 13:05 Cefuroxime Sodium 1,500 mg/ (Sodium Chloride) 100 mls @ 200 mls/hr IV Q12H MARY; Protocol Stop: 12/08/21 12:29 Amiodarone HCl 150 mg/Dextrose/ IV Miscellaneous Supplies 103 mls @ 412 mls/hr IV ONCE ONE Stop: 12/06/21 15:42 Last Admin: 12/06/21 16:54 Dose: Not Given Amiodarone HCl 900 mg/Dextrose/ IV Miscellaneous Supplies 518 mls @ 0 mls/hr IV .Q0M MARY; Protocol Stop: 12/07/21 15:27 Dobutamine HCl/Dextrose (Dobutamine Drip) 500 mg in 250 mls @ 0 mls/hr IV .Q0M PRN; Protocol PRN Reason: Cardiac Output Dopamine HCl/Dextrose (Intropin Drip) 400 mg in 250 mls @ 12.332 mls/hr IV CONT PRN; Protocol PRN Reason: Hypotension Norepinephrine Bitartrate 4 mg (/ Dextrose) 254 mls @ 10.583 mls/hr IV .Q24H PRN; Protocol PRN Reason: HYPOTENSION Phenylephrine HCl 25 mg/ (Sodium Chloride) 252.5 mls @ 0 mls/hr IV .Q0M PRN; Protocol PRN Reason: HYPOTENSION Nitroglycerin/Dextrose (Nitroglycerin Drip) 50 mg in 250 mls @ 0 mls/hr IV .Q0M MARY; Protocol Sodium Nitroprusside 50 mg/ (Dextrose) 252 mls @ 0 mls/hr IV .Q0M MARY; Protocol Labetalol HCl 300 mg/ Sodium (Chloride) 300 mls @ 30 mls/hr IV .Q10H PRN; Protocol PRN Reason: Systolic BP > 140 mmHg Albumin Human (Albumin) 12.5 gm in 250 mls @ 600 mls/hr IV PRN PRN PRN Reason: For CVP < 4 or SBP< 90 Last Infusion: 12/06/21 19:48 Dose: Infused Sodium Chloride (Sodium Chloride 0.9%) 1,000 mls @ 75 mls/hr IV .[id number] MARY Stop: 12/09/21 09:00 Last Infusion: 12/09/21 20:09 Dose: Infused Dextrose (D5w) 500 mls @ 100 mls/hr IV ONCE PRN; Protocol PRN Reason: Adult Acute Hypoglycemia Prot Insulin Human Regular 250 unit (/ Sodium Chloride) 252.5 mls @ 0 mls/hr IV .Q0M MARY; Protocol Propofol (Diprivan) 1,000 mg in 100 mls @ 0 mls/hr IV .Q0M MARY; Protocol Last Titration: 12/10/21 09:32 Dose: 0 mcg/kg/min, 0 mls/hr Cefuroxime Sodium 1,500 mg/ (Sodium Chloride) 50 mls @ 200 mls/hr IV Q12H MARY; Protocol Stop: 12/08/21 12:14 Last Infusion: 12/09/21 20:15 Dose: Infused Potassium Chloride (K-Alvaro) 100 mls @ 25 mls/hr IV ONCE ONE Stop: 12/07/21 08:25 Last Infusion: 12/07/21 19:09 Dose: Infused Potassium Chloride (K-Alvaro) 100 mls @ 25 mls/hr IV ONCE ONE Stop: 12/07/21 20:40 Last Infusion: 12/07/21 21:00 Dose: Infused dexmedeTOMIDine 0.9 % NaCL (Precedex) 400 mcg in 100 mls @ 0 mls/hr IV .Q0M MARY; Protocol Last Titration: 12/13/21 01:10 Dose: Infused Potassium Chloride (K-Alvaro) 100 mls @ 50 mls/hr IV ONCE ONE Stop: 12/09/21 06:54 Last Infusion: 12/09/21 08:40 Dose: Infused Piperacillin Sod/Tazobactam (Sod 3.375 gm/ Sodium Chloride) 50 mls @ 12.5 mls/hr IV Q8H MARY; Protocol Last Infusion: 12/13/21 01:10 Dose: Infused Potassium Phosphate 15 mmol/ (Sodium Chloride) 105 mls @ 47 mls/hr IV ONCE ONE Stop: 12/09/21 14:29 Last Infusion: 12/09/21 20:09 Dose: Infused Vancomycin HCl 1,000 mg/ (Sodium Chloride) 250 mls @ 250 mls/hr IV Q12H MARY Last Infusion: 12/11/21 00:48 Dose: Infused Cefepime HCl 1,000 mg/ Sodium (Chloride) 50 mls @ 100 mls/hr IV Q12H MARY; Protocol Last Infusion: 12/12/21 17:08 Dose: Infused Sodium Chloride (Sodium Chloride 0.9%) 2,111.94 mls @ 2,111.94 mls/hr 30 ml/kg infuse over 1 hr (2111.94 ml) IV .Q1H ONE Stop: 12/09/21 19:18 Last Infusion: 12/10/21 00:51 Dose: Infused Fentanyl 2,500 mcg/ Sodium (Chloride) 250 mls @ 0 mls/hr IV .Q0M MARY; Protocol Last Titration: 12/13/21 01:10 Dose: Infused Lidocaine HCl 5 ml/ Potassium (Chloride) 105 mls @ 25 mls/hr IV ONCE ONE Stop: 12/10/21 13:41 Last Infusion: 12/10/21 16:30 Dose: Infused Amiodarone HCl 900 mg/Dextrose/ IV Miscellaneous Supplies 518 mls @ 0 mls/hr IV .Q0M MARY; Protocol Last Titration: 12/14/21 05:57 Dose: Infused Diltiazem HCl 50 mg/ Sodium (Chloride) 50 mls @ 0 mls/hr IV .Q0M MARY; Protocol Last Titration: 12/13/21 12:51 Dose: Infused Vancomycin/PEG/NADA/Lysine/Water (Vancocin) 1,250 mg in 250 mls @ 250 mls/hr IV Q12H MARY Last Infusion: 12/12/21 12:29 Dose: Infused Lidocaine HCl 5 ml/ Potassium (Chloride) 105 mls @ 25 mls/hr IV ONCE ONE Stop: 12/11/21 10:25 Last Admin: 12/11/21 08:18 Dose: 25 mls/hr Potassium Chloride (K-Alvaro) 100 mls @ 25 mls/hr IV ONCE ONE Stop: 12/11/21 14:02 Last Infusion: 12/11/21 16:50 Dose: Infused Cefepime HCl 1,000 mg/ (Dextrose) 50 mls @ 100 mls/hr IV Q12H MARY; Protocol Last Infusion: 12/14/21 17:40 Dose: Infused Dextrose (D5w) 1,000 mls @ 30 mls/hr IV .Q24H MARY Last Admin: 12/14/21 12:51 Dose: 30 mls/hr Piperacillin Sod/Tazobactam (Sod 3.375 gm/ Dextrose) 50 mls @ 12.5 mls/hr IV Q8H MARY; Protocol Last Infusion: 12/15/21 01:29 Dose: Infused Vancomycin HCl 1,250 mg/ (Dextrose) 250 mls @ 250 mls/hr IV Q12H MARY Last Infusion: 12/13/21 01:52 Dose: Infused Vancomycin/PEG/NADA/Lysine/Water (Vancocin) 1,500 mg in 300 mls @ 150 mls/hr IV Q12H [facility] Last Admin: 12/15/21 12:26 Dose: 150 mls/hr Lidocaine HCl 5 ml/ Potassium (Chloride) 105 mls @ 25 mls/hr IV ONCE ONE Stop: 12/13/21 09:18 Last Infusion: 12/13/21 20:20 Dose: Infused Lidocaine HCl 5 ml/ Potassium (Chloride) 105 mls @ 25 mls/hr IV ONCE ONE Stop: 12/13/21 14:41 Last Infusion: 12/13/21 20:20 Dose: Infused Potassium Chloride (K-Alvaro) 100 mls @ 25 mls/hr IV Q4H MARY Stop: 12/14/21 14:14 Last Admin: 12/14/21 10:53 Dose: 25 mls/hr Cefepime HCl 1,000 mg/ (Dextrose) 50 mls @ 100 mls/hr IV Q12H [facility]; Protocol Last Infusion: 12/15/21 05:30 Dose: Infused Piperacillin Sod/Tazobactam (Sod 3.375 gm/ Dextrose) 50 mls @ 12.5 mls/hr IV Q8H [facility]; Protocol Last Admin: 12/15/21 15:00 Dose: 12.5 mls/hr Potassium Chloride (K-Alvaro) 100 mls @ 25 mls/hr IV ONCE ONE Stop: 12/15/21 10:17 Last Infusion: 12/15/21 12:26 Dose: Infused Lidocaine HCl 5 ml/ Potassium (Chloride) 105 mls @ 25 mls/hr IV ONCE ONE Stop: 12/15/21 20:06 Last Admin: 12/15/21 16:04 Dose: 25 mls/hr Ipratropium Cromwell (Ipratropium 0.5 Mg/2.5 Ml Neb) 0.5 mg INHALATION ONCE PRN PRN Reason: WHEEZING Ketamine HCl (Ketamine 50 Mg/Ml Inj 10 Ml) Confirm Administered Dose 500 mg .ROUTE .STK-MED ONE Stop: 12/06/21 09:22 Labetalol HCl (Labetalol 5 Mg/Ml Sdv 20ml) 10 mg IVP Q5M PRN PRN Reason: Systolic BP >140 mmHG Lactulose (Lactulose Oral Liq 20 Gm/30 Ml Udc) 10 gm NG-TUBE ONCE ONE Stop: 12/09/21 11:40 Last Admin: 12/09/21 13:02 Dose: 10 gm Lidocaine HCl (Lidocaine 1% Inj 20 Ml) 0.1 ml INTRADERMA PRN PRN PRN Reason: anesthetic prior to IV start Stop: 12/07/21 05:57 Lidocaine HCl (Lidocaine 2% Inj 20 Ml) Confirm Administered Dose 20 ml .ROUTE .STK-MED ONE Stop: 12/06/21 06:44 Lidocaine HCl (Lidocaine 1% Inj (Ml)) 5 ml IV ONCE ONE Stop: 12/15/21 08:01 Last Admin: 12/15/21 08:01 Dose: 5 ml Lorazepam (Lorazepam 0.5 Mg Tablet) 0.5 mg PO Q6H PRN PRN Reason: ANXIETY Last Admin: 12/07/21 14:35 Dose: 0.5 mg Lorazepam (Lorazepam 2 Mg/Ml Inj 1 Ml) 2 mg IM Q4H PRN; Protocol PRN Reason: ALCOWD Lorazepam (Lorazepam 2 Mg/Ml Inj 1 Ml) 2 mg IVP PRN PRN; Protocol PRN Reason: WITHDRAWAL Lorazepam (Lorazepam 2 Mg Tablet) 2 mg PO Q4H PRN; Protocol PRN Reason: WITHDRAWAL Meperidine HCl (Meperidine 50 Mg/Ml Inj) 12.5 mg IVP Q5M PRN PRN Reason: Shivering PACU Phase I Stop: 12/07/21 07:35 Metoclopramide HCl (Metoclopramide 5 Mg/Ml Sdv 2 Ml) 10 mg IVP ONCE PRN PRN Reason: N/V if zofran ineffective Metoclopramide HCl (Metoclopramide 5 Mg/Ml Sdv 2 Ml) 10 mg IVP Q5M PRN PRN Reason: Nausea unrelieved by Zofran Stop: 12/07/21 07:35 Metoprolol Tartrate (Metoprolol Tartrate 25 Mg Tablet) 12.5 mg PO BID@899,2099 [facility] Last Admin: 12/07/21 08:38 Dose: 12.5 mg Metoprolol Tartrate (Metoprolol Tartrate 25 Mg Tablet) 12.5 mg PO ONCE ONE Stop: 12/07/21 10:46 Last Admin: 12/07/21 10:52 Dose: 12.5 mg Metoprolol Tartrate (Metoprolol Tartrate 25 Mg Tablet) 25 mg PO BID@ [facility] Last Admin: 12/10/21 09:27 Dose: 25 mg Metoprolol Tartrate (Metoprolol Tartrate 1 Mg/1 Ml Sdv 5 Ml) 5 mg IVP NOW ONE Stop: 12/08/21 08:22 Last Admin: 12/08/21 10:22 Dose: Not Given Metoprolol Tartrate (Metoprolol Tartrate 1 Mg/1 Ml Sdv 5 Ml) 5 mg IVP ONCE ONE Stop: 12/10/21 16:28 Last Admin: 12/10/21 16:55 Dose: 5 mg Metoprolol Tartrate (Metoprolol Tartrate 25 Mg Tablet) 37.5 mg PO BID@ [facility] Last Admin: 12/11/21 10:39 Dose: Not Given Metoprolol Tartrate (Metoprolol Tartrate 1 Mg/1 Ml Sdv 5 Ml) 5 mg IVP ONCE ONE Stop: 12/10/21 23:06 Last Admin: 12/10/21 23:31 Dose: 5 mg Metoprolol Tartrate (Metoprolol Tartrate 50 Mg Tablet) 50 mg PO BID@899,2099 [facility] Last Admin: 12/13/21 20:02 Dose: 50 mg Metoprolol Tartrate (Metoprolol Tartrate 1 Mg/1 Ml Sdv 5 Ml) 5 mg IVP NOW ONE Stop: 12/11/21 12:09 Last Admin: 12/11/21 12:36 Dose: 5 mg Metoprolol Tartrate (Metoprolol Tartrate 1 Mg/1 Ml Sdv 5 Ml) 5 mg IVP Q6H PRN PRN Reason: HR >120, A.fib Last Admin: 12/13/21 01:54 Dose: 5 mg Metoprolol Tartrate (Metoprolol Tartrate 1 Mg/1 Ml Sdv 5 Ml) 5 mg IVP ONCE ONE Stop: 12/13/21 06:12 Last Admin: 12/13/21 06:19 Dose: 5 mg Metoprolol Tartrate (Metoprolol Tartrate 1 Mg/1 Ml Sdv 5 Ml) 2.5 mg IVP Q4H [facility] Last Admin: 12/14/21 12:45 Dose: Not Given Metoprolol Tartrate (Metoprolol Tartrate 50 Mg Tablet) 25 mg PO BID@0900,2100 [facility] Last Admin: 12/14/21 10:52 Dose: 25 mg Metoprolol Tartrate (Metoprolol Tartrate 25 Mg Tablet) 12.5 mg PO BID@0900,2100 [facility] Last Admin: 12/15/21 07:38 Dose: 12.5 mg Midazolam HCl (Midazolam 1 Mg/Ml Inj 5 Ml) Confirm Administered Dose 5 mg .ROUTE .STK-MED ONE Stop: 12/06/21 06:46 Midazolam HCl (Midazolam 1 Mg/Ml Inj 5 Ml) Confirm Administered Dose 5 mg .ROUTE .STK-MED ONE Stop: 12/06/21 10:33 Midazolam HCl (Midazolam 1 Mg/Ml Inj 2 Ml) 1 mg IVP Q1H PRN PRN Reason: Sedation for Hinojosa score < 4. Last Admin: 12/07/21 01:52 Dose: 1 mg Midazolam HCl (Midazolam 1 Mg/Ml Inj 2 Ml) 2 mg IVP Q2H PRN PRN Reason: TREMORS Morphine Sulfate (Morphine 4 Mg/Ml Sdv 1 Ml) 2 mg IVP Q1H PRN PRN Reason: BREAKTHROUGH PAIN Last Admin: 12/07/21 08:32 Dose: 2 mg Morphine Sulfate (Morphine 2 Mg/Ml Syr 1 Ml) 2 mg IVP Q1H PRN PRN Reason: BREAKTHROUGH PAIN Morphine Sulfate (Morphine 2 Mg/Ml Syr 1 Ml) 2 mg IVP Q1H PRN PRN Reason: BREAKTHROUGH PAIN Last Admin: 12/12/21 15:00 Dose: 2 mg Multivitamins Therapeutic (Multivitamin Therapeutic Tablet) 1 tab PO DAILY [facility] Last Admin: 12/15/21 07:38 Dose: 1 tab Mupirocin (Mupirocin Oint 22 Gm) 1 applic NASAL BID [facility] Last Admin: 12/15/21 08:11 Dose: Not Given Naloxone HCl (Naloxone 0.4 Mg/Ml Sdv) 0.1 mg IVP Q2M PRN PRN Reason: OPIATERV Ondansetron HCl (Ondansetron 2 Mg/Ml Sdv 2 Ml) 4 mg IVP Q5M PRN PRN Reason: NAUSEA AND VOMITING Ondansetron HCl (Ondansetron 2 Mg/Ml Sdv 2 Ml) 4 mg IVP Q15M PRN PRN Reason: Nausea/Vomiting PACU PHASE II Ondansetron HCl (Ondansetron 2 Mg/Ml Sdv 2 Ml) 4 mg IVP Q5M PRN PRN Reason: Nausea PACU Phase I Stop: 12/07/21 07:35 Ondansetron HCl (Ondansetron 2 Mg/Ml Sdv 2 Ml) 4 mg IVP Q6H PRN PRN Reason: NAUSEA Last Admin: 12/09/21 13:20 Dose: 4 mg Oxycodone/Acetaminophen (Oxycodone-Apap 5-325 Mg Tablet) 1 - 2 tab PO Q6H PRN PRN Reason: MILD TO MODERATE PAIN Last Admin: 12/10/21 09:50 Dose: 2 tab Pantoprazole Sodium (Pantoprazole 40 Mg Sdv) 40 mg IVP DAILY [facility] Stop: 12/08/21 08:59 Last Admin: 12/07/21 08:39 Dose: 40 mg Phenobarbital Sodium (Phenobarbital 130 Mg/Ml Sdv 1 Ml) 130 mg IV Q3H PRN PRN Reason: ciwa >12 Last Admin: 12/08/21 08:02 Dose: 130 mg Phenobarbital Sodium (Phenobarbital 130 Mg/Ml Sdv 1 Ml) 260 mg IV Q1H PRN PRN Reason: ciwa >12 Last Admin: 12/08/21 09:10 Dose: 260 mg Phenobarbital Sodium (Phenobarbital 130 Mg/Ml Sdv 1 Ml) 260 mg IV Q3H PRN PRN Reason: ciwa >12 Last Admin: 12/10/21 12:57 Dose: 260 mg Phenobarbital Sodium (Phenobarbital 130 Mg/Ml Sdv 1 Ml) 130 mg IV Q3H PRN PRN Reason: ciwa >12 Last Admin: 12/12/21 10:32 Dose: 130 mg Phenylephrine HCl (Phenylephrine 10 Mg/Ml Sdv 1 Ml) Confirm Administered Dose 10 mg .ROUTE .STK-MED ONE Stop: 12/06/21 06:45 Potassium Chloride (Potassium Chloride Er 20 Meq Tablet) 20 meq PO ONCE ONE Stop: 12/11/21 09:01 Last Admin: 12/11/21 11:19 Dose: Not Given Potassium Chloride (Potassium Chloride Er 20 Meq Tablet) 20 meq PO ONCE ONE Stop: 12/15/21 08:27 Propofol (Propofol 10 Mg/Ml Sdv 20 Ml) Confirm Administered Dose 200 mg .ROUTE .STK-MED ONE Stop: 12/06/21 06:44 Propofol (Propofol 10 Mg/Ml Sdv 20 Ml) Confirm Administered Dose 200 mg .ROUTE .STK-MED ONE Stop: 12/06/21 10:40 Rocuronium Cromwell (Rocuronium 10 Mg/Ml Inj 5ml) Confirm Administered Dose 100 mg .ROUTE .STK-MED ONE Stop: 12/06/21 06:47 Rocuronium Cromwell (Rocuronium 10 Mg/Ml Inj 5ml) Confirm Administered Dose 100 mg .ROUTE .STK-MED ONE Stop: 12/06/21 10:40 Scopolamine (Scopolamine 1.5 Patch) 1 patch TRANSDERMA ONCE PRN PRN Reason: Nausea/ Vomiting Prophylaxis Senna/Docusate Sodium (Sennosides-Docusate Tablet) 2 tab PO DAILY [facility] Last Admin: 12/15/21 07:39 Dose: Not Given Tamsulosin HCl (Tamsulosin 0.4 Mg Capsule) 0.4 mg PO DAILY [facility] Last Admin: 12/15/21 07:38 Dose: 0.4 mg Thiamine HCl (Thiamine 100 Mg/Ml Sdv) 100 mg IM ONCE ONE Stop: 12/07/21 16:26 Last Admin: 12/07/21 16:53 Dose: 100 mg Thiamine HCl (Thiamine 100 Mg/Ml Sdv) 100 mg IVP DAILY [facility] Last Admin: 12/09/21 08:59 Dose: 100 mg Thiamine HCl (Thiamine 100 Mg/Ml Sdv) 500 mg IVP DAILY [facility] Last Admin: 12/15/21 07:37 Dose: 500 mg Thiamine Mononitrate (Thiamine 100 Mg Tablet) 100 mg PO DAILY [facility] Last Admin: 12/09/21 08:59 Dose: 100 mg Thrombin (Thrombin 5,000 Unit Sdv) Confirm Administered Dose 5,000 unit .ROUTE .STK-MED ONE Stop: 12/06/21 10:01 Last Admin: 12/06/21 16:54 Dose: Not Given Vancomycin HCl (Vancomycin 1,000 Mg Sdv) Confirm Administered Dose 3,000 mg .ROUTE .STK-MED ONE Stop: 12/06/21 07:11 Vancomycin HCl (Vancomycin 1,000 Mg Sdv) 3,000 mg XX ONCE ONE; Protocol Stop: 12/06/21 10:04 Last Admin: 12/06/21 09:10 Dose: 3,000 mg Allergies Sulfa (Sulfonamide Antibiotics) Allergy (Verified 12/13/21 17:33) rash Home Medications cholecalciferol (vitamin D3) 25 mcg (1,000 unit) capsule 25 mcg PO DAILY 10/13/21 [History Confirmed 12/07/21] food supplemt, lactose-reduced (Ensure Active High Protein) 1 ea PO .UP TO TID 10/13/21 [History Confirmed 12/07/21] omeprazole 40 mg capsule,delayed release 40 mg PO DAILY 10/13/21 [History Confirmed 12/07/21] sildenafil 100 mg tablet 100 mg PO DAILY PRN Sexual Activity 10/13/21 [History Confirmed 12/05/21] tamsulosin 0.4 mg capsule 0.4 mg PO DAILY 10/13/21 [History Confirmed 12/07/21] amlodipine 10 mg tablet 10 mg PO DAILY #90 tabs 11/16/21 [Rx Confirmed 12/07/21] aspirin 81 mg capsule 81 mg PO DAILY #60 caps 11/24/21 [Rx Confirmed 12/07/21] citalopram 40 mg tablet 40 mg PO DAILY 11/29/21 [History Confirmed 12/07/21] omega-3 fatty acids 1,000 mg capsule 1,000 mg PO DAILY 12/07/21 [History Confirmed 12/07/21] Discharge Plan Discharge Patient Disposition: Xfer Short-Term Hosp Condition: Stable Prescriptions: No Action Ensure Active High Protein Liquid 1 ea PO .UP TO TID omeprazole 40 mg capsule,delayed release(DR/EC) 40 mg PO DAILY sildenafil 100 mg tablet 100 mg PO DAILY PRN (Reason: Sexual Activity) Rx Instructions: administer 30 minutes to 4 hours before activity tamsulosin 0.4 mg capsule 0.4 mg PO DAILY cholecalciferol (vitamin D3) 25 mcg (1,000 unit) capsule 25 mcg PO DAILY citalopram 40 mg tablet 40 mg PO DAILY amlodipine 10 mg tablet 10 mg PO DAILY Qty: 90 3RF aspirin 81 mg capsule 81 mg PO DAILY Qty: 60 1RF Fish Oil Concentrate 1,000 mg Capsule 1,000 mg PO DAILY Discharge Orders: Transfer Out of Facility (Order); Ordered 12/15/21 Ordered By: Luca Adams Referrals: Jasiel Escalante MD [Physician] - 1 week Libby Roland FNP [Primary Care Provider] - 1 week Discharge Activity: Limit activity as instructed Patient Instructions: Opioid Safety Activity Restrictions/Additional Instructions: No lifting greater than 5 pounds with upper extremities for the next 6 weeks May shower as needed. Dressings may be off of incisions while showering. No swimming or tub baths x4 weeks Do not pull or lift by raising patient with his arms or underneath his axilla for the next month Drain sutures may be removed in 2 weeks after discharge [place] incisions with Betadine and and recover daily for the next week. If no evidence of infection dressings may be left off of incision after 1 week or they may be recovered as needed if there are concerns of contamination or irritation from clothing or bedding. Contact [facility] after discharge from rehabilitation to schedule follow-up. 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
== END 2021-12-15 17:34 | DRG 235 ==
LOC: ICU 15:24
PROVIDERS: Internal Medicine; Admitting Provider Thoracic Surgery (Cardiothoracic Vascular Surgery); PCP Nurse Practitioner; Visit Provider Thoracic Surgery (Cardiothoracic Vascular Surgery)
PROC: 02100Z9 Bypass Coronary Artery, One Artery from Left Internal Mammary, Open Approach (ICD-10-PCS; principal; 2021-12-06 08:15)
DX: I25.10 Atherosclerotic heart disease of native coronary artery without angina pectoris (principal); J69.0 Pneumonitis due to inhalation of food and vomit; J95.821 Acute postprocedural respiratory failure; F10.231 Alcohol dependence with withdrawal delirium; F05 Delirium due to known physiological condition; I97.190 Other postprocedural cardiac functional disturbances following cardiac surgery; I47.1 Supraventricular tachycardia; J95.851 Ventilator associated pneumonia; Z16.11 Resistance to penicillins; T81.44XA Sepsis following a procedure, initial encounter; E87.0 Hyperosmolality and hypernatremia; Z95.5 Presence of coronary angioplasty implant and graft; I45.10 Unspecified right bundle-branch block; F17.210 Nicotine dependence, cigarettes, uncomplicated; Z88.2 Allergy status to sulfonamides; I10 Essential (primary) hypertension; G31.2 Degeneration of nervous system due to alcohol; F12.90 Cannabis use, unspecified, uncomplicated; N40.0 Benign prostatic hyperplasia without lower urinary tract symptoms; Z79.82 Long term (current) use of aspirin; B96.1 Klebsiella pneumoniae [K. pneumoniae] as the cause of diseases classified elsewhere; E83.39 Other disorders of phosphorus metabolism; I48.91 Unspecified atrial fibrillation; E86.0 Dehydration; R63.30 Feeding difficulties, unspecified
CPT/HCPCS: 36415; 36416; 36569; 36592; 36600; 51702; 70450; 71045; 76705; 80048; 80051; 80053; 80076; 80202; 80307; 81001; 81003; 82140; 82330; 82607; 82805; 82947; 82962; 83605; 83735; 84100; 84145; 84295; 84439; 84443; 85025; 85347; 85378; 85610; 85730; 86140; 86592; 86850; 86900; 86920; 87040; 87070; 87077; 87186; 87205; 87641; 87806; 92523; 92610; 93005; 93970; 94002; 94003; 94640; 94799; 96372; 97116; 97163; 97167; 97530; 97535; A4570; C1751; C9113; J0282; J0692; J0697; J1650; J1940; J2250; J2270; J2370; J2405; J2440; J2543; J2704; J3010; J3370; J3411; J3480; J3490; J7030; J7050; J7060; J7608; P9041

== ENCOUNTER → 2021-12-29 12:49 | Outpatient (BNVA) | payer OTHER, SELFPAY | PROVIDERS: PCP Nurse Practitioner; Visit Provider Internal Medicine | DX: I25.10 Atherosclerotic heart disease of native coronary artery without angina pectoris (principal); I10 Essential (primary) hypertension; R06.00 Dyspnea, unspecified; R55 Syncope and collapse; Z79.01 Long term (current) use of anticoagulants; Z87.891 Personal history of nicotine dependence; Z95.1 Presence of aortocoronary bypass graft | CPT/HCPCS: 99214 ==

== ENCOUNTER → 2022-07-03 15:00 | Outpatient (BNVA) | payer OTHER, SELFPAY | PROVIDERS: PCP Nurse Practitioner; Visit Provider Internal Medicine | DX: I25.10 Atherosclerotic heart disease of native coronary artery without angina pectoris (principal); I10 Essential (primary) hypertension; Z87.891 Personal history of nicotine dependence; Z79.82 Long term (current) use of aspirin | CPT/HCPCS: 99214 ==

== ENCOUNTER 2025-04-09 17:40 | Emergency (ER) | payer OTHER, SELFPAY ==
--- OUTSIDE RECORDS SUMMARY | 2025-04-09 17:43 | XMS_ITS | Clinical Summary ---
Author Organization [facility] Address 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
--- OUTSIDE RECORDS SUMMARY | 2025-04-09 17:43 | XMS_ITS | Clinical Summary ---
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
--- OUTSIDE RECORDS SUMMARY | 2025-04-09 17:43 | XMS_ITS | Encounter Summary ---
Author Organization [facility] Address 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 Gender Identity Not on file Sexual Orientation Not on file documented as of this encounter Plan of Treatment Not on file documented as of this encounter Procedures Procedure Name Priority Date/Time Associated Diagnosis Comments CBC WITH DIFFERENTIAL Routine 12/16/2021 4:28 PM CDT BASIC METABOLIC PANEL Routine 12/16/2021 4:28 PM CDT documented in this encounter Results * (ABNORMAL) CBC WITH DIFFERENTIAL (12/16/2021 4:28 PM CDT) WBC 12.3(H) 4.8 - 10.8 K/uL 12/16/2021 5:46 PM CDT [facility] RBC 3.38(L) 4.60 - 6.20 M/uL 12/16/2021 5:46 PM CDT [facility] HEMOGLOBIN 11.7(L) 14.0 - 18.0 g/dL 12/16/2021 5:46 [facility] HEMATOCRIT 35.2(L) 41.0 - 53.0 % 12/16/2021 5:46 PM [facility] MCV 104.1(H) 84.0 - 103.0 fL 12/16/2021 5:46 PM [facility] MCH 34.6(H) 27.0 - 34.0 pg 12/16/2021 5:46 PM [facility] MCHC 33.2 30.0 - 35.0 g/dL 12/16/2021 5:46 PM [facility] RDW 13.4 11.0 - 14.5 % 12/16/2021 5:46 PM [facility] RDW-STDEV 51.2 37.0 - 54.0 fL 12/16/2021 5:46 PM [facility] PLATELETS 396 140 - 440 K/uL 12/16/2021 5:46 PM [facility] MPV 10.9 8.9 - 12.8 fL 12/16/2021 5:46 PM [facility] NEUTROPHILS 75 42 - 75 % 12/16/2021 5:46 PM [facility] LYMPHOCYTES 13(L) 24 - 44 % 12/16/2021 5:46 PM [facility] MONOCYTES 6 2 - 10 % 12/16/2021 5:46 PM [facility] EOSINOPHILS 3 0 - 7 % 12/16/2021 5:46 PM [facility] BASOPHILS 0 0 - 1 % 12/16/2021 5:46 PM [facility] IMMATURE GRANULOCYTES 2 0 - 2 % 12/16/2021 5:46 PM [facility] NEUTROPHIL ABSOLUTE 9.25(H) 2.00 - 8.00 K/uL 12/16/2021 5:46 PM [facility] LYMPHOCYTE ABSOLUTE 1.60 1.20 - 4.00 K/uL 12/16/2021 5:46 PM CDT [facility] MONOCYTE ABSOLUTE 0.77(H) 0.10 - 0.60 K/uL 12/16/2021 5:46 PM CDT [facility] EOSINOPHIL ABSOLUTE 0.40 0.00 - 0.70 K/uL 12/16/2021 5:46 PM CDT [facility] BASOPHILS ABSOLUTE 0.05 0.00 - 0.20 K/uL 12/16/2021 5:46 PM CDT [facility] IMMATURE GRANULOCYTES ABSOLUTE 0.21(H) 0.00 - 0.10 K/uL 12/16/2021 5:46 PM CDT [facility] Blood Collection / Unknown 12/16/2021 4:28 PM CDT 12/16/2021 5:36 PM CDT us Ava Kinney MD HEMATOLOGY ORDERABLES Final Res ult [facility] CLIA # [id number] [facility] [id number] * (ABNORMAL) BASIC METABOLIC PANEL (12/16/2021 4:28 PM CDT) SODIUM 140 136 - 145 mmol/L 12/16/2021 6:00 PM CDT [facility] POTASSIUM 3.5 3.5 - 5.1 mmol/L 12/16/2021 6:00 PM T [facility] CHLORIDE 104 98 - 107 mmol/L 12/16/2021 6:00 PM T [facility] CO2 26 22 - 29 mmol/L 12/16/2021 6:00 PM T [facility] CALCIUM 8.3(L) 8.8 - 10.2 mg/dL 12/16/2021 6:00 PM T [facility] BUN 5(L) 8 - 23 mg/dL 12/16/2021 6:00 PM T [facility] CREATININE 0.65(L) 0.67 - 1.17 mg/dL 12/16/2021 6:00 PM T [facility] Comment:The GFR result is no t clinically significant on patients <18 or >70 years of age. GLUCOSE 110(H) 74 - 99 mg/dL 12/16/2021 6:00 PM [facility] GFR >60 mL/min/1. 73 sq meter 12/16/2021 6:00 PM [facility] Comment:eGFR calculated with 2020 CKD-EPI equation. Vegetarian diet, extremely high or low muscle mass, and may affect results. Cystatin C with Glomerular Filtration Rate is a suitable alternative for these patients. ANION GAP 10 9 - 20 mmol/L 12/16/2021 6:00 PM T [facility] Blood Collection / Unknown 12/16/2021 4:28 PM CDT 12/16/2021 5:43 PM CDT us Ava Kinney MD CHEMISTRY ORDERABLES Final Resu lt [facility] CLIA # [id number] [address] [place] [id number] documented in this encounter Visit Diagnoses Not on filedocumented in this encounter
--- OUTSIDE RECORDS SUMMARY | 2025-04-09 17:43 | XMS_ITS | Encounter Summary ---
Author Organization [facility] Address 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 Gender Identity Not on file Sexual Orientation Not on file documented as of this encounter Plan of Treatment Not on file documented as of this encounter Procedures Procedure Name Priority Date/Time Associated Diagnosis Comments CBC WITH DIFFERENTIAL Routine 12/19/2021 2:30 AM CDT BASIC METABOLIC PANEL Routine 12/19/2021 2:30 AM CDT documented in this encounter Results * (ABNORMAL) CBC WITH DIFFERENTIAL (12/19/2021 2:30 AM CDT) WBC 9.7 4.8 - 10.8 K/uL 12/19/2021 11:35 AM CDT [facility] RBC 3.21(L) 4.60 - 6.20 M/uL 12/19/2021 11:35 AM CDT [facility] HEMOGLOBIN 11.2(L) 14.0 - 18.0 g/dL 12/19/2021 11:35 AM [facility] HEMATOCRIT 34.7(L) 41.0 - 53.0 % 12/19/2021 11:35 AM [facility] MCV 108.1(H) 84.0 - 103.0 fL 12/19/2021 11:35 AM [facility] MCH 34.9(H) 27.0 - 34.0 pg 12/19/2021 11:35 AM [facility] MCHC 32.3 30.0 - 35.0 g/dL 12/19/2021 11:35 AM [facility] RDW 13.6 11.0 - 14.5 % 12/19/2021 11:35 AM [facility] RDW-STDEV 53.7 37.0 - 54.0 fL 12/19/2021 11:35 AM [facility] PLATELETS 507(H) 140 - 440 K/uL 12/19/2021 11:35 AM [facility] MPV 11.4 8.9 - 12.8 fL 12/19/2021 11:35 AM [facility] NEUTROPHILS 55 42 - 75 % 12/19/2021 11:35 AM [facility] LYMPHOCYTES 29 24 - 44 % 12/19/2021 11:35 AM [facility] MONOCYTES 9 2 - 10 % 12/19/2021 11:35 AM [facility] [employer] [facility] EOSINOPHILS 6 0 - 7 % 12/19/2021 11:35 AM [facility] [employer] [facility] BASOPHILS 0 0 - 1 % 12/19/2021 11:35 AM [facility] IMMATURE GRANULOCYTES 1 0 - 2 % 12/19/2021 11:35 AM [facility] NEUTROPHIL ABSOLUTE 5.31 2.00 - 8.00 K/uL 12/19/2021 11:35 AM [facility] LYMPHOCYTE ABSOLUTE 2.82 1.20 - 4.00 K/uL 12/19/2021 11:35 AM CDT [facility] MONOCYTE ABSOLUTE 0.83(H) 0.10 - 0.60 K/uL 12/19/2021 11:35 AM CDT [facility] EOSINOPHIL ABSOLUTE 0.57 0.00 - 0.70 K/uL 12/19/2021 11:35 AM CDT [facility] BASOPHILS ABSOLUTE 0.04 0.00 - 0.20 K/uL 12/19/2021 11:35 AM CDT [facility] IMMATURE GRANULOCYTES ABSOLUTE 0.10 0.00 - 0.10 K/uL 12/19/2021 11:35 AM T [facility] Blood Collection / Unknown 12/19/2021 2:30 AM CDT 12/19/2021 11:30 AM CDT us Ava Kinney MD HEMATOLOGY ORDERABLES Final Res ult [facility] CLIA # [id number] [facility] [address] * (ABNORMAL) BASIC METABOLIC PANEL (12/19/2021 2:30 AM CDT) SODIUM 140 136 - 145 mmol/L 12/19/2021 11:50 AM CDT [facility] POTASSIUM 3.7 3.5 - 5.1 mmol/L 12/19/2021 11:50 AM CDT [facility] CHLORIDE 102 98 - 107 mmol/L 12/19/2021 11:50 AM CDT [facility] CO2 31(H) 22 - 29 mmol/L 12/19/2021 11:50 AM CDT [facility] CALCIUM 8.6(L) 8.8 - 10.2 mg/dL 12/19/2021 11:50 AM CDT [facility] BUN 6(L) 8 - 23 mg/dL 12/19/2021 11:50 AM CDT [facility] CREATININE 0.69 0.67 - 1.17 mg/dL 12/19/2021 11:50 AM T [facility] Comment:The GFR result is no t clinically significant on patients <18 or >70 years of age. GLUCOSE 113(H) 74 - 99 mg/dL 12/19/2021 11:50 AM T [facility] GFR >60 mL/min/1.7 3 sq meter 12/19/2021 11:50 AM T [facility] Comment:eGFR calculated with 2020 CKD-EPI equation. Vegetarian diet, extremely high or low muscle mass, and may affect results. Cystatin C with Glomerular Filtration Rate is a suitable alternative for these patients. ANION GAP 7(L) 9 - 20 mmol/L 12/19/2021 11:50 AM T [facility] Blood Collection / Unknown 12/19/2021 2:30 AM CDT 12/19/2021 11:34 AM CDT us Ava Kinney MD CHEMISTRY ORDERABLES Final Resu lt [facility] CLIA # [id number] [address] [place] [id number] documented in this encounter Visit Diagnoses Not on filedocumented in this encounter
--- OUTSIDE RECORDS SUMMARY | 2025-04-09 17:43 | XMS_ITS | Encounter Summary ---
Author Organization [facility] Address [address] [place] [address] Care Team Providers Care Exec. Creative Director Name Role Phone Unavailable Primary Care Provider Unavailabl e Encounter Details Date Type Department Care Team (Latest Contact Info) Description 03/25/2002 Outpatient Historical [facility] [address] [facility] [address] [place] [phone] Gavino Chowdhury MD [address] [facility] [address] [place] [address] FX CERVICAL VERT NOS-CLOSE (CMS/HCC) (Primary Dx) Social History Tobacco Use Types Packs/Day Years Used Date Smoking Tobacco: Never Assessed Sex and Gender Information Value Date Recorded Sex Assigned at Not on file 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
--- OUTSIDE RECORDS SUMMARY | 2025-04-09 17:43 | XMS_ITS | Encounter Summary ---
Author Organization [facility] Address 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 Gender Identity Not on file Sexual Orientation Not on file documented as of this encounter Plan of Treatment Not on file documented as of this encounter Procedures Procedure Name Priority Date/Time Associated Diagnosis Comments CBC WITH DIFFERENTIAL Routine 12/16/2021 2:30 AM CDT VANCOMYCIN LEVEL RANDOM Routine 12/16/2021 2:30 AM CDT COMPREHENSIVE METABOLIC PANEL Routine 12/16/2021 2:30 AM CDT documented in this encounter Results * VANCOMYCIN LEVEL RANDOM (12/16/2021 2:30 AM CDT) VANCOMYCIN, RANDOM 15.9 5.0 - 50.0 ug/mL 12/16/2021 7:41 AM CDT [facility] Blood Collection / Unknown 12/16/2021 2:30 AM CDT 12/16/2021 7:23 AM CDT Narrative [facility] - 12/16/2021 7:41 AM CDT Vancomycin Therapeutic Ranges: Vancomycin Trough: 10 - 20 mcg/mL Vancomycin Peak: 25 - 50 mcg/mL us Ava Kinney MD CHEMISTRY ORDERABLES Final Resu lt [facility] CLIA # [id number] [address] [address] [place] [address] * (ABNORMAL) CBC WITH DIFFERENTIAL (12/16/2021 2:30 AM CDT) [facility] WBC 11.3(H) 4.8 - 10.8 K/uL 12/16/2021 7:28 AM T [facility] RBC 3.11(L) 4.60 - 6.20 M/uL 12/16/2021 7:28 AM T [facility] HEMOGLOBIN 10.9(L) 14.0 - 18.0 g/dL 12/16/2021 7:28 AM T [facility] HEMATOCRIT 32.6(L) 41.0 - 53.0 % 12/16/2021 7:28 AM [facility] MCV 104.8(H) 84.0 - 103.0 fL 12/16/2021 7:28 AM [facility] MCH 35.0(H) 27.0 - 34.0 pg 12/16/2021 7:28 AM T [facility] MCHC 33.4 30.0 - 35.0 g/dL 12/16/2021 7:28 AM T [facility] RDW 13.5 11.0 - 14.5 % 12/16/2021 7:28 AM [facility] RDW-STDEV 51.7 37.0 - 54.0 fL 12/16/2021 7:28 AM T [facility] PLATELETS 284 140 - 440 K/uL 12/16/2021 7:28 AM CDT [facility] MPV 11.0 8.9 - 12.8 fL 12/16/2021 7:28 AM CDT [facility] NEUTROPHILS 69 42 - 75 % 12/16/2021 7:28 AM T [facility] LYMPHOCYTES 18(L) 24 - 44 % 12/16/2021 7:28 AM CDT [facility] MONOCYTES 6 2 - 10 % 12/16/2021 7:28 AM CDT [facility] EOSINOPHILS 6 0 - 7 % 12/16/2021 7:28 AM CDT [facility] BASOPHILS 0 0 - 1 % 12/16/2021 7:28 AM T [facility] IMMATURE GRANULOCYTES 1 0 - 2 % 12/16/2021 7:28 AM T [facility] NEUTROPHIL ABSOLUTE 7.75 2.00 - 8.00 K/uL 12/16/2021 7:28 AM T [facility] LYMPHOCYTE ABSOLUTE 2.03 1.20 - 4.00 K/uL 12/16/2021 7:28 AM T [facility] MONOCYTE ABSOLUTE 0.67(H) 0.10 - 0.60 K/uL 12/16/2021 7:28 AM CDT [facility] EOSINOPHIL ABSOLUTE 0.64 0.00 - 0.70 K/uL 12/16/2021 7:28 AM [facility] BASOPHILS ABSOLUTE 0.04 0.00 - 0.20 K/uL 12/16/2021 7:28 AM T [facility] IMMATURE GRANULOCYTES ABSOLUTE 0.14(H) 0.00 - 0.10 K/uL 12/16/2021 7:28 AM [facility] Blood Collection / Unknown 12/16/2021 2:30 AM CDT 12/16/2021 7:25 AM CDT us Ava Kinney MD HEMATOLOGY ORDERABLES Final Res ult [facility] # [id number] [address] [facility] [place] [address] * (ABNORMAL) COMPREHENSIVE METABOLIC PANEL (12/16/2021 2:30 AM CDT) SODIUM 140 136 - 145 mmol/L 12/16/2021 7:41 AM [facility] POTASSIUM 3.7 3.5 - 5.1 mmol/L 12/16/2021 7:41 AM T [facility] CHLORIDE 108(H) 98 - 107 mmol/L 12/16/2021 7:41 AM [facility] CO2 25 22 - 29 mmol/L 12/16/2021 7:41 AM [facility] CALCIUM 8.0(L) 8.8 - 10.2 mg/dL 12/16/2021 7:41 AM [facility] BUN 6(L) 8 - 23 mg/dL 12/16/2021 7:41 AM [facility] CREATININE 0.71 0.67 - 1.17 mg/dL 12/16/2021 7:41 AM [facility] Comment:The GFR result is no t clinically significant on patients <18 or >70 years of age. GLUCOSE 101(H) 74 - 99 mg/dL 12/16/2021 7:41 AM [facility] TOTAL PROTEIN 5.4(L) 6.4 - 8.3 g/dL 12/16/2021 7:41 AM [facility] ALBUMIN 2.6(L) 3.5 - 5.2 g/dL 12/16/2021 7:41 AM [facility] BILIRUBIN TOTAL 0.6 0.2 - 1.0 mg/dL 12/16/2021 7:41 AM [facility] ALKALINE PHOSPHATASE 117 40 - 129 U/L 12/16/2021 7:41 AM [facility] AST 80(H) 10 - 50 U/L 12/16/2021 7:41 AM CDT [facility] ALT 71(H) <=50 U/L 12/16/2021 7:41 AM T [facility] GFR >60 mL/min/1.7 3 sq meter 12/16/2021 7:41 AM T [facility] Comment:eGFR calculated with 2020 CKD-EPI equation. Vegetarian diet, extremely high or low muscle mass, and may affect results. Cystatin C with Glomerular Filtration Rate is a suitable alternative for these patients. ANION GAP 7(L) 9 - 20 mmol/L 12/16/2021 7:41 AM T [facility] Blood Collection / Unknown 12/16/2021 2:30 AM CDT 12/16/2021 7:23 AM CDT us Ava Kinney MD CHEMISTRY ORDERABLES Final Resu lt [facility] CLIA # [id number] [address] [address] documented in this encounter Visit Diagnoses Not on filedocumented in this encounter
--- OUTSIDE RECORDS SUMMARY | 2025-04-09 17:43 | XMS_ITS | Encounter Summary ---
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 Name Role Phone Unavailable Primary Care Provider Unavailabl e Encounter Details Date Type Department Care Team (Late st Contact Info) Description 02/04/2002 Outpatient Historical Gavino Chowdhury MD [address] [facility] [address] [place] [address] Social History Tobacco Use Types Packs/Day Years Used Date Smoking Tobacco: Never Assessed Sex and Gender Information Value Date Recorded Sex Assigned at Not on file 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
[2025-04-09 17:45] VITALS: BP 124/65; PULSE 60; RESP 22; TEMP 36.6; O2SAT 96
--- NOTE | 2025-04-09 17:46 | ECG_ITS ---
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1945 Requested By: Fuentes Mills Order Number: [id number] Marques MD: ALKA LOZANO Measurements Intervals [place] Rate: 54 P: 74 AL: 163 QRS: -70 QRSD: 150 T: 84 QT: 418 QTc: 399 Interpretive Statements SINUS BRADYCARDIA POSSIBLE LEFT ATRIAL ENLARGEMENT [-0.1mV P-WAVE IN V1/V2] RIGHT BUNDLE BRANCH BLOCK [120+ ms QRS DURATION, UPRIGHT V1, 40+ ms S IN I/aVL/V4/V5/V6] LEFT ANTERIOR FASCICULAR BLOCK [QRS AXIS <= -45, QR IN I, RS IN II] ANTERIOR MYOCARDIAL INFARCTION , OF INDETERMINATE AGE [40+ ms Q WAVE AND/OR ST/T ABNORMALITY IN V3/V4] Compared to ECG 12/12/2021 14:15:32 Left anterior fascicular block now present Myocardial infarct finding now present Atrial fibrillation no longer present ST (T wave) deviation no longer present Electronically Signed On 04-12-2025 23:25:44 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
--- NOTE | 2025-04-09 17:46 | ECG_ITS ---
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1945 Requested By: Fuentes Mills Order Number: [id number] Maruqes MD: ALKA LOZANO Measurements Intervals [place] Rate: 54 P: 74 NE: 163 QRS: -70 QRSD: 150 T: 84 QT: 418 QTc: 399 Interpretive Statements SINUS BRADYCARDIA POSSIBLE LEFT ATRIAL ENLARGEMENT [-0.1mV P-WAVE IN V1/V2] RIGHT BUNDLE BRANCH BLOCK [120+ ms QRS DURATION, UPRIGHT V1, 40+ ms S IN I/aVL/V4/V5/V6] LEFT ANTERIOR FASCICULAR BLOCK [QRS AXIS <= -45, QR IN I, RS IN II] ANTERIOR MYOCARDIAL INFARCTION , OF INDETERMINATE AGE [40+ ms Q WAVE AND/OR ST/T ABNORMALITY IN V3/V4] Compared to ECG 12/12/2021 14:15:32 Left anterior fascicular block now present Myocardial infarct finding now present Atrial fibrillation no longer present ST (T wave) deviation no longer present Electronically Signed On 04-12-2025 23:09:22 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
--- NOTE | 2025-04-09 17:53 | CTR_ITS ---
PROCEDURE INFORMATION: Exam: CT Head Without Contrast Exam date and time: 04/09/2025 6:03 PM Age: 79 years old Clinical indication: Syncope and collapse; 3 syncopal episodes in the last week TECHNIQUE: Imaging protocol: Computed tomography of the head without contrast. Radiation optimization: All CT scans at this facility use at least one of these dose optimization techniques: automated exposure control; mA and/or kV adjustment per patient size (includes targeted exams where dose is matched to clinical indication); or iterative reconstruction. COMPARISON: CT head wo con* [id number] 12/13/2021 8:40 AM RADIATION DOSE METRICS: Total DLP (mGy-cm): 1024.88 FINDINGS: Brain: There is mild cerebral atrophy. There are mild deep white matter microangiopathic ischemic changes. No acute hemorrhage is identified. No mass or mass effect is identified. Cerebral ventricles: The ventricles are prominent secondary to atrophy. Paranasal sinuses: Focal opacification of the right inferior frontal sinus. The paranasal sinuses are otherwise clear. Mastoid air cells: The mastoid air cells are clear. Bones: No acute osseous abnormalities are seen. Chronic left lamina papyracea fracture. Soft tissues: The soft tissues are within normal limits. CT/CT head wo con* [id number] IMPRESSION: No acute intracranial pathology.
--- NOTE | 2025-04-09 17:53 | XRR_ITS ---
PROCEDURE INFORMATION: Exam: XR Chest Exam date and time: 04/09/2025 5:55 PM Age: 79 years old Clinical indication: Other: Syncope; Additional info: Syncope; Weakness TECHNIQUE: Imaging protocol: Radiologic exam of the chest. Views: 1 view. COMPARISON: CR XR chest 1V portable [id number] 12/11/2021 7:53 AM FINDINGS: Lungs: No pulmonary consolidation. Mild diffuse interstitial prominence, likely related chronic lung changes. Stable mild biapical pleural/parenchymal scarring. Pleural spaces: No pleural effusion or pneumothorax. Heart/Mediastinum: Heart size is within normal limits. Bones/joints: The patient is status post sternotomy. No acute osseous abnormalities are seen. Severe degenerative changes of the left shoulder. XR/XR chest 1V portable [id number] IMPRESSION: No acute findings.
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
[2025-04-09 18:15] VITALS: BP 117/73; PULSE 54; O2SAT 96
[2025-04-09 18:20] LABS: Glucose Urine UA Negative (Normal); Nitrate Urine Negative (Negative); Specific Gravity, Urine 1.018 (1.005-1.030)
[2025-04-09 18:25] LABS: Add Urine Microscopic? YES
[2025-04-09 18:42] VITALS: BP 110/63; PULSE 57; O2SAT 97
[2025-04-09 18:47] LABS: Hematocrit 44.0 % (37-53); Hemoglobin 14.80 g/dL (11.27-16.99); Mean Corpuscular HGB Conc 33.6 g/dL (30-55); Mean Corpuscular Hemoglobin 34.6 pg (27-33); Mean Corpuscular Volume 102.8 fl (82-101); Nucleated Red Blood Cells % 0 %; Platelet Count 192 10^3/cmm (157-399); Red Blood Count 4.28 10^6/uL (3.85-5.65); White Blood Count 10.36 10^3/uL (3.29-11.43)
[2025-04-09 18:51] LABS: INR 0.87 (0.8-1.2); Prothrombin Time 12.40 SECONDS (12.1-14.9)
[2025-04-09 18:52] LABS: Partial Thromboplastin Time 26.2 SECONDS (23.9-36.7)
[2025-04-09 19:12] LABS: Troponin(5th) Baseline 20 ng/L (0-15)
[2025-04-09 19:24] LABS: Alanine Aminotransferase 10 U/L (0-41); Albumin Level 4.3 g/dL (3.5-5.2); Alkaline Phosphatase 88 U/L (40-130); Blood Urea Nitrogen 14 mg/dL (8-23); Calcium 9.1 mg/dL (8.5-10.5); Carbon Dioxide 27 mmol/L (22-29); Chloride 97 mmol/L (98-107); Globulin 2.1 g/dL (1.3-4.6); Glucose 110 mg/dL (65-115); Magnesium 2.1 mg/dL (1.7-2.3); NT Pro B Type Natriuretic Pept 253 pg/mL (0-450); Osmolality Calculated 277 mOsm/kg (285-295); Sodium 133 mmol/L (136-145); Total Protein 6.4 g/dL (6.6-8.7)
[2025-04-09 19:27] LABS: Anion Gap 13.8 (5-19); Aspartate Amino Transferase 16 U/L (0-40); Potassium 4.8 mmol/L (3.5-5.1)
[2025-04-09 20:09] VITALS: BP 128/74; PULSE 62; O2SAT 95
[2025-04-09 20:25] VITALS: BP 128/74; PULSE 62; O2SAT 95
== END 2025-04-09 20:26 | disposition home or self-care (01) ==
PROVIDERS: Emergency Provider Physician Assistant; PCP Nurse Practitioner
DX: R55 Syncope and collapse (principal); Z79.01 Long term (current) use of anticoagulants; Z79.82 Long term (current) use of aspirin; Z87.891 Personal history of nicotine dependence; I25.10 Atherosclerotic heart disease of native coronary artery without angina pectoris; I10 Essential (primary) hypertension
CPT/HCPCS: 36415; 36416; 70450; 71045; 80053; 81001; 82962; 83735; 83880; 84484; 85025; 85610; 85730; 93005; 99285